=== PATIENT | female | born 1970 | race Caucasian/White ===

== ENCOUNTER 2018-07-03 20:48 | Emergency (ER) | payer MEDICAID, MEDICARE ==
[~2018-07-03] VITALS: Ht 157.5 cm; Wt 84.0 kg
[~2018-07-03 20:48] MED LIST: NAPR-1154 PO
[2018-07-03] MEDS ORDERED: benzonatate 100mg capsule PO ONE (21:35)
[2018-07-03] MEDS ORDERED: normal saline 1000ml 1,000 ML IV ONE (21:35)
[2018-07-03 22:15] LABS: BASOPHILS # (AUTO) 0.1 X10'3 (0-0.2); BASOPHILS % (AUTO) 1.2 % (0-1); EOSINOPHILS # (AUTO) 0.1 X10'3 (0-0.9); EOSINOPHILS % (AUTO) 1.3 % (0-6); HEMATOCRIT 34.1 % (35.0-45.0); HEMOGLOBIN 10.6 g/dl (12.0-16.0); LYMPHOCYTES % (AUTO) 34.5 % (21-51); MEAN CORPUSCULAR HEMOGLOBIN 22.8 PG (27.0-31.0); MEAN CORPUSCULAR HGB CONC 31.2 g/dL (33.0-36.5); MEAN CORPUSCULAR VOLUME 73.1 FL (78-98); MEAN PLATELET VOLUME 7.2 FL (7.4-10.4); MONOCYTES # (AUTO) 0.2 X10'3 (0-0.9); MONOCYTES % (AUTO) 4.1 % (2-12); NEUTROPHILS # (AUTO) 3.4 X10'3 (1.8-7.7); NEUTROPHILS % (AUTO) 58.9 % (42-75); PLATELET COUNT 153 X10'3 (140-440); RED BLOOD COUNT 4.66 X10'6 (4.20-5.60); RED CELL DISTRIBUTION WIDTH 19.2 % (11.5-14.5); WHITE BLOOD COUNT 5.8 X10'3 (4.5-11.0)
[2018-07-03 22:42] LABS: ANISOCYTOSIS 2+; ELLIPTOCYTES FEW; MICROCYTOSIS 1+; PLATELET ESTIMATE NORMAL; POLYCHROMASIA FEW
--- NOTE | 2018-07-03 23:13 | NUR ---
charity increased to level 3 due to extra procedures physician has ordered
[2018-07-03 23:15] LABS: CHLORIDE 101 MMOL/L (99-107); GLUCOSE 87 MG/DL (70-104); POTASSIUM 3.9 MMOL/L (3.5-5.1); SODIUM 136 MMOL/L (135-145)
[2018-07-03 23:16] LABS: ALANINE AMINOTRANSFERASE 35 U/L (12-78); ALBUMIN 3.6 G/DL (3.4-5.0); ALBUMIN/GLOBULIN RATIO 0.7 (1.1-1.5); ALKALINE PHOSPHATASE 146 IU/L (46-116); ANION GAP 11 (8-16); ASPARTATE AMINO TRANSFERASE 58 U/L (10-37); BILIRUBIN,TOTAL 0.5 MG/DL (0.1-1.0); BLOOD UREA NITROGEN 7 MG/DL (7-18); BUN/CREATININE RATIO 7.4 (6.6-38.0); CALCIUM 8.4 MG/DL (8.5-10.1); CREATININE 0.94 MG/DL (0.40-0.90); TOTAL CARBON DIOXIDE 23.8 MMOL/L (24-32); TOTAL PROTEIN 8.7 G/DL (6.4-8.2); eGFR 63 ML/MIN
[2018-07-03 23:17] LABS: ETHANOL 0.279 GM/DL (0.0-0.010)
[2018-07-03] MEDS ORDERED: AZIT-63 PO (23:33)
[2018-07-03] MEDS ORDERED: BENZ-16 PO (23:33)
[2018-07-04 00:04] VITALS: BP 145/84
== END 2018-07-04 00:06 | disposition home or self-care (01) ==
LOC: ER 20:48
DX: J06.9 Acute upper respiratory infection, unspecified (principal); R07.89 Other chest pain; G89.29 Other chronic pain; M25.512 Pain in left shoulder; F15.90 Other stimulant use, unspecified, uncomplicated; Z98.890 Other specified postprocedural states; Z56.0 Unemployment, unspecified; Z59.0 Homelessness; Z88.8 Allergy status to other drugs, medicaments and biological substances; Z79.899 Other long term (current) drug therapy; W18.39XA Other fall on same level, initial encounter; Y93.89 Activity, other specified; Y92.89 Other specified places as the place of occurrence of the external cause; Y99.8 Other external cause status
CPT/HCPCS: 36415; 71045; 80053; 80320; 83880; 84484; 85025; 85610; 93005; 99284; J7030

== ENCOUNTER 2018-07-12 19:20 | Emergency (ER) | payer MEDICARE ==
[~2018-07-12] VITALS: Ht 157.5 cm; Wt 77.8 kg
[~2018-07-12 19:20] MED LIST changes: +AZIT-63 PO; +BENZ-16 PO
[2018-07-12 19:24] VITALS: BP 176/108
== END 2018-07-12 20:15 | disposition home or self-care (01) ==
LOC: ER 19:21
DX: S96.811A Strain of other specified muscles and tendons at ankle and foot level, right foot, initial encounter (principal); G89.29 Other chronic pain; F15.90 Other stimulant use, unspecified, uncomplicated; Z56.0 Unemployment, unspecified; Z59.0 Homelessness; Z98.890 Other specified postprocedural states; Z88.8 Allergy status to other drugs, medicaments and biological substances; Z79.899 Other long term (current) drug therapy; X58.XXXA Exposure to other specified factors, initial encounter; Y93.89 Activity, other specified; Y92.89 Other specified places as the place of occurrence of the external cause; Y99.8 Other external cause status
CPT/HCPCS: 73610; 99284

== ENCOUNTER 2020-05-02 11:42 | Emergency (ER) | payer MEDICARE, MEDICAID ==
[~2020-05-02] VITALS: Ht 157.5 cm; Wt 89.5 kg
[~2020-05-02 11:42] MED LIST changes: -AZIT-63 PO; -BENZ-16 PO
[2020-05-02 12:51] LABS: CLARITY,URINE SLIGHTLY CLOUDY (Clear); COLOR,URINE STRAW (Yellow); GLUCOSE, URINE NEGATIVE (Neg); KETONES,URINE NEGATIVE (Neg); LEUKOCYTE ESTERASE ,URINE TRACE (Neg); NITRITES, URINE NEGATIVE (Neg); OCCULT BLOOD,URINE NEGATIVE (Neg); PROTEIN,URINE NEGATIVE (Neg); UROBILINOGEN,URINE 0.2 E.U/dL (0.2-1.0)
[2020-05-02 12:54] LABS: BASOPHILS # (AUTO) 0.1 X10'3 (0-0.2); BASOPHILS % (AUTO) 1.1 % (0-1); EOSINOPHILS # (AUTO) 0.1 X10'3 (0-0.9); EOSINOPHILS % (AUTO) 1.9 % (0-6); HEMATOCRIT 33.8 % (35.0-45.0); HEMOGLOBIN 10.7 g/dl (12.0-16.0); LYMPHOCYTES # (AUTO) 1.4 X10'3 (1.1-4.8); LYMPHOCYTES % (AUTO) 22.2 % (21-51); MEAN CORPUSCULAR HEMOGLOBIN 25.9 PG (27.0-31.0); MEAN CORPUSCULAR HGB CONC 31.6 g/dL (33.0-36.5); MEAN PLATELET VOLUME 7.7 FL (7.4-10.4); MONOCYTES # (AUTO) 0.4 X10'3 (0-0.9); NEUTROPHILS # (AUTO) 4.2 X10'3 (1.8-7.7); NEUTROPHILS % (AUTO) 67.8 % (42-75); PLATELET COUNT 326 X10'3 (140-440); RED BLOOD COUNT 4.12 X10'6 (4.20-5.60); RED CELL DISTRIBUTION WIDTH 17.5 % (11.5-14.5); WHITE BLOOD COUNT 6.2 X10'3 (4.5-11.0)
[2020-05-02 12:59] LABS: UA COLLECTION TYPE CLN CATCH MIDSTREAM
[2020-05-02 13:01] LABS: SQUAMOUS EPITHELIAL CELL,UR FEW /LPF (FEW)
[2020-05-02 13:03] LABS: BACTERIA,URINE FEW /HPF (Neg)
[2020-05-02 13:05] LABS: RBC,URINE NONE SEEN /HPF (0-2); WBC,URINE 0-4 /HPF (0-4)
[2020-05-02 13:18] LABS: ALANINE AMINOTRANSFERASE 29 U/L (12-78); ALBUMIN 3.2 G/DL (3.4-5.0); ALBUMIN/GLOBULIN RATIO 0.8 (1.1-1.5); ALKALINE PHOSPHATASE 141 IU/L (46-116); AMYLASE 69 U/L (25-115); ANION GAP 7 (8-16); ASPARTATE AMINO TRANSFERASE 23 U/L (10-37); BILIRUBIN,TOTAL 0.2 MG/DL (0.1-1.0); BLOOD UREA NITROGEN 16 MG/DL (7-18); BUN/CREATININE RATIO 21.1 (6.6-38.0); CALCIUM 8.6 MG/DL (8.5-10.1); CHLORIDE 107 MMOL/L (99-107); CREATININE 0.76 MG/DL (0.40-0.90); GLUCOSE 87 MG/DL (70-104); LIPASE 125 U/L (73-393); POTASSIUM 4.7 MMOL/L (3.5-5.1); SODIUM 139 MMOL/L (135-145); TOTAL CARBON DIOXIDE 25.4 MMOL/L (24-32); TOTAL PROTEIN 7.4 G/DL (6.4-8.2); eGFR 80 ML/MIN
[2020-05-02] MEDS ORDERED: ondansetron 4mg rapidly disintigrating tab PO ONE (13:25)
[2020-05-02] MEDS ORDERED: sucralfate 1 gm tablet PO ONE (13:25)
[2020-05-02] MEDS ORDERED: LIDOcaine Viscous 15ml cup MM ONE (13:25)
[2020-05-02] MEDS ORDERED: mag hydrox/Alum hydrox/simeth 30ml oral suspension PO ONE (13:25)
[2020-05-02] MEDS ORDERED: lactulose 20gm/30ml cup PO ONE (14:25)
[2020-05-02 14:56] VITALS: BP 156/102
== END 2020-05-02 15:02 | disposition home or self-care (01) ==
LOC: ER 11:42
DX: K59.00 Constipation, unspecified (principal); G89.29 Other chronic pain; F15.90 Other stimulant use, unspecified, uncomplicated; Z56.0 Unemployment, unspecified; Z59.0 Homelessness; Z98.890 Other specified postprocedural states; Z90.49 Acquired absence of other specified parts of digestive tract; Z88.8 Allergy status to other drugs, medicaments and biological substances; Z79.899 Other long term (current) drug therapy
CPT/HCPCS: 36415; 74018; 80053; 81001; 82150; 83690; 85025; 87077; 87088; 87186; 99284

== ENCOUNTER 2021-02-14 22:57 | Emergency (ER) | payer MEDICARE, MEDICAID ==
[~2021-02-14] VITALS: Ht 157.5 cm; Wt 79.5 kg
[2021-02-15] MEDS ORDERED: ondansetron/PF 4mg/2ml inj IV ONE (00:50)
[2021-02-15] MEDS ORDERED: morphine 4 MG/ML inj SYRINge IV ONE (00:50)
[2021-02-15] MEDS ORDERED: iohexol 300mg/ml 100ml inj. ONE (00:55)
[2021-02-15 01:38] LABS: BASOPHILS # (AUTO) 0.1 X10'3 (0-0.2); BASOPHILS % (AUTO) 1.1 % (0-1); EOSINOPHILS % (AUTO) 0.2 % (0-6); HEMATOCRIT 41.4 % (35.0-45.0); HEMOGLOBIN 13.1 g/dl (12.0-16.0); LYMPHOCYTES # (AUTO) 0.3 X10'3 (1.1-4.8); MEAN CORPUSCULAR HEMOGLOBIN 27.7 PG (27.0-31.0); MEAN CORPUSCULAR HGB CONC 31.7 g/dL (33.0-36.5); MEAN CORPUSCULAR VOLUME 87.4 FL (78-98); MONOCYTES # (AUTO) 0.7 X10'3 (0-0.9); MONOCYTES % (AUTO) 5.2 % (2-12); NEUTROPHILS # (AUTO) 11.5 X10'3 (1.8-7.7); NEUTROPHILS % (AUTO) 91.5 % (42-75); PLATELET COUNT 352 X10'3 (140-440); RED BLOOD COUNT 4.74 X10'6 (4.20-5.60); RED CELL DISTRIBUTION WIDTH 21.8 % (11.5-14.5); WHITE BLOOD COUNT 12.6 X10'3 (4.5-11.0)
[2021-02-15 01:46] LABS: ALANINE AMINOTRANSFERASE 37 U/L (12-78); ALBUMIN 3.9 G/DL (3.4-5.0); ALBUMIN/GLOBULIN RATIO 0.8 (1.1-1.5); ALKALINE PHOSPHATASE 120 IU/L (46-116); ANION GAP 8 (8-16); ASPARTATE AMINO TRANSFERASE 29 U/L (10-37); BILIRUBIN,DIRECT 0.2 MG/DL (0-0.3); BILIRUBIN,TOTAL 0.6 MG/DL (0.1-1.0); BLOOD UREA NITROGEN 19 MG/DL (7-18); BUN/CREATININE RATIO 17.4 (6.6-38.0); CALCIUM 9.4 MG/DL (8.5-10.1); CHLORIDE 104 MMOL/L (99-107); CREATININE 1.09 MG/DL (0.40-0.90); GLUCOSE 152 MG/DL (70-104); LIPASE 99 U/L (73-393); POTASSIUM 3.7 MMOL/L (3.5-5.1); SODIUM 138 MMOL/L (135-145); TOTAL CARBON DIOXIDE 26.1 MMOL/L (24-32); TOTAL PROTEIN 8.9 G/DL (6.4-8.2); eGFR 53 ML/MIN
[2021-02-15 02:51] LABS: ANISOCYTOSIS 3+; LARGE PLATELETS FEW; PLATELET ESTIMATE NORMAL; POLYCHROMASIA FEW
--- NOTE | 2021-02-15 03:20 | NUR ---
GAVE PT WATER TO TEST IF PT TOLERATES WELL, PER .
--- NOTE | 2021-02-15 03:44 | NUR ---
PT TOLERATED WATER WITH NO NAUSEA OR VOMITING. DR ÁLVAREZ AWARE.
[2021-02-15 04:25] VITALS: BP 115/81
== END 2021-02-15 04:27 | disposition home or self-care (01) ==
LOC: ER 22:57
DX: R10.13 Epigastric pain (principal); K59.00 Constipation, unspecified; R11.2 Nausea with vomiting, unspecified; G89.29 Other chronic pain; F15.90 Other stimulant use, unspecified, uncomplicated; Z90.49 Acquired absence of other specified parts of digestive tract; Z98.890 Other specified postprocedural states; Z56.0 Unemployment, unspecified; Z59.00 Homelessness unspecified; Z88.8 Allergy status to other drugs, medicaments and biological substances; Z79.899 Other long term (current) drug therapy
CPT/HCPCS: 36415; 74177; 80048; 80076; 83690; 85008; 85025; 96374; 96375; 99285; J2270; J2405; Q9967

== ENCOUNTER 2021-02-20 04:41 | Inpatient (IN) | payer MEDICARE, MEDICAID ==
[~2021-02-20] VITALS: Ht 157.5 cm; Wt 81.0 kg
[2021-02-20] MEDS ORDERED: ondansetron/PF 4mg/2ml inj IV ONE ×2 (04:45→08:25)
[2021-02-20] MEDS ORDERED: famotidine/PF 10 mg/ml inj IV ONE (04:45)
[2021-02-20] MEDS ORDERED: normal saline 1000ml 1,000 ML IV ONE (04:45)
[2021-02-20] MEDS ORDERED: pantoprazole 40MG/D5 100ML BAG 100 ML IV ONE (04:45)
[2021-02-20] MEDS ORDERED: ketorolac trometh. 30mg/ml inj. IV ONE (04:45)
[2021-02-20] MEDS ORDERED: dicyclomine 10mg/ml 2ml ampule IM ONE (04:45)
[2021-02-20] MEDS ORDERED: metoclopramide 5 mg/ml inj IV ONE (04:45)
[2021-02-20] MEDS ORDERED: morphine 4 MG/ML inj SYRINge IV ONE ×2 (04:45→15:35)
[2021-02-20] MEDS ORDERED: pantoprazole 40MG/NS 100ML BAG 100 ML IV ONE (05:00)
[2021-02-20 05:55] LABS: BASOPHILS # (AUTO) 0.1 X10'3 (0-0.2); BASOPHILS % (AUTO) 0.9 % (0-1); EOSINOPHILS % (AUTO) 0.1 % (0-6); HEMATOCRIT 35.9 % (35.0-45.0); HEMOGLOBIN 11.5 g/dl (12.0-16.0); LYMPHOCYTES # (AUTO) 0.9 X10'3 (1.1-4.8); LYMPHOCYTES % (AUTO) 10.6 % (21-51); MEAN CORPUSCULAR HEMOGLOBIN 27.6 PG (27.0-31.0); MEAN CORPUSCULAR HGB CONC 32.1 g/dL (33.0-36.5); MEAN CORPUSCULAR VOLUME 85.9 FL (78-98); MEAN PLATELET VOLUME 7.7 FL (7.4-10.4); MONOCYTES # (AUTO) 0.2 X10'3 (0-0.9); MONOCYTES % (AUTO) 2.3 % (2-12); NEUTROPHILS # (AUTO) 7.6 X10'3 (1.8-7.7); NEUTROPHILS % (AUTO) 86.1 % (42-75); PLATELET COUNT 352 X10'3 (140-440); RED BLOOD COUNT 4.18 X10'6 (4.20-5.60); RED CELL DISTRIBUTION WIDTH 20.6 % (11.5-14.5); WHITE BLOOD COUNT 8.9 X10'3 (4.5-11.0)
[2021-02-20 06:11] LABS: ALANINE AMINOTRANSFERASE 22 U/L (12-78); ALBUMIN 2.9 G/DL (3.4-5.0); ALBUMIN/GLOBULIN RATIO 0.7 (1.1-1.5); ALKALINE PHOSPHATASE 115 IU/L (46-116); ANION GAP 10 (8-16); ASPARTATE AMINO TRANSFERASE 22 U/L (10-37); BILIRUBIN,TOTAL 0.3 MG/DL (0.1-1.0); BLOOD UREA NITROGEN 15 MG/DL (7-18); BUN/CREATININE RATIO 14.9 (6.6-38.0); CALCIUM 8.5 MG/DL (8.5-10.1); CHLORIDE 105 MMOL/L (99-107); CREATININE 1.01 MG/DL (0.40-0.90); GLUCOSE 112 MG/DL (70-104); POTASSIUM 3.6 MMOL/L (3.5-5.1); SODIUM 139 MMOL/L (135-145); TOTAL CARBON DIOXIDE 24.2 MMOL/L (24-32); eGFR 58 ML/MIN
[2021-02-20 06:13] LABS: ETHANOL < 0.010 GM/DL (0.0-0.010); LIPASE 74 U/L (73-393)
[2021-02-20 07:31] LABS: CLARITY,URINE SLIGHTLY CLOUDY (Clear); COLOR,URINE YELLOW (Yellow); GLUCOSE, URINE NEGATIVE (Neg); KETONES,URINE TRACE mg/dl (Neg); LEUKOCYTE ESTERASE ,URINE NEGATIVE (Neg); NITRITES, URINE NEGATIVE (Neg); OCCULT BLOOD,URINE NEGATIVE (Neg); PROTEIN,URINE NEGATIVE (Neg); UROBILINOGEN,URINE 0.2 E.U/dL (0.2-1.0)
[2021-02-20 07:37] LABS: UA COLLECTION TYPE VOIDED
[2021-02-20 07:45] LABS: BACTERIA,URINE 2+ /HPF (Neg); MUCUS STRANDS MODERATE /LPF (Neg); SQUAMOUS EPITHELIAL CELL,UR MODERATE /LPF (FEW)
[2021-02-20 07:46] LABS: CAL OXALATE CRYSTALS 3+ /HPF (NEGATIVE); RBC,URINE 0-2 /HPF (0-2)
[2021-02-20 07:47] LABS: WBC,URINE 0-4 /HPF (0-4)
[2021-02-20 07:50] LABS: URINE AMPHETAMINE SCREEN POSITIVE (Neg); URINE BARBITUATE SCREEN NEGATIVE (Neg); URINE BENZODIAZEPINES SCREEN NEGATIVE (Neg); URINE CANNABINOID SCREEN NEGATIVE (Neg); URINE COCAINE SCREEN NEGATIVE (Neg); URINE METHADONE SCREEN NEGATIVE (Neg); URINE OPIATE SCREEN POSITIVE (Neg); URINE PHENCYCLIDINE SCREEN NEGATIVE (Neg)
[2021-02-20] MEDS ORDERED: LORazepam 2 mg/ml vial IV ONE (08:25)
[2021-02-20] MEDS ORDERED: diphenhydrAMINE 50 mg/ml inj IV ONE (08:25)
[2021-02-20] MEDS ORDERED: haloperidol lactate 5mg/ml inj IM ONE (08:25)
[2021-02-20] MEDS ORDERED: acetaminophen 325mg tablet PO PRN (09:25)
[2021-02-20] MEDS ORDERED: potassium Cl 20 mEq SR tablet PO PRN ×2 (09:25)
[2021-02-20] MEDS ORDERED: mag hydrox/Alum hydrox/simeth 30ml oral suspension PO PRN (09:25)
[2021-02-20] MEDS ORDERED: magnesium 2GM in 50ml NS 50 ML IV PRN (09:25)
[2021-02-20] MEDS: normal saline 1000ml 1,000 ML IV SCH ×2 (09:25→13:00)
[2021-02-20] MEDS ORDERED: potassium CL 10mEq/100ml bag 100 ML IV PRN (09:25)
[2021-02-20] MEDS ORDERED: ondansetron/PF 4mg/2ml inj IV PRN (09:25)
[2021-02-20] MEDS ORDERED: magnesium 4gm in 100ml NS 100 ML IV PRN (09:25)
[2021-02-20] MEDS ORDERED: LORazepam 2 mg/ml vial IV PRN (09:50)
[2021-02-20] MEDS ORDERED: haloperidol lactate 5mg/ml inj IM PRN (09:50)
[2021-02-20] MEDS ORDERED: haloperidol 5mg tablet PO PRN (09:50)
--- NOTE | 2021-02-20 11:41 | NUR ---
Pt was incont. of stool while sleeping.
[2021-02-20] MEDS ORDERED: NO HOME MEDS (12:19)
--- NOTE | 2021-02-20 14:38 | NUR ---
Pt is up to BSC, +stool, loose, light brown.
[2021-02-20] MEDS: K and/or MAG REPLACEMENT MC SCH (15:33)
[2021-02-20] MEDS ORDERED: morphine 2 MG/ML inj. syringe IV PRN (15:35)
--- NOTE | 2021-02-20 16:01 | NUR ---
Report given to ADRIENNE Golden on the Surgical floor.
--- NOTE | 2021-02-20 18:31 | NUR ---
Problems reprioritized. Patient report given, questions answered & plan of care reviewed with Nereida hayes.
[2021-02-20 20:00] VITALS: BP 133/86
[2021-02-20] MEDS: diatr meglu/diatrizoate 30ml oral sol.-(3 dose) bottle PO SCH (20:14)
[2021-02-20] MEDS: enoxaparin 40mg/0.4ml syringe SQ SCH (20:15)
[2021-02-20] MEDS: temazepam 15mg capsule PO PRN (20:24)
[2021-02-21] VITALS: BP 161/104
[2021-02-21] MEDS: morphine 4 MG/ML inj SYRINge IV PRN ×3 (00:22→11:22)
[2021-02-21 04:03] VITALS: BP 138/88
[2021-02-21] MEDS: normal saline 1000ml 1,000 ML IV SCH ×2 (05:25→07:26)
[2021-02-21 06:37] LABS: BASOPHILS % (AUTO) 0.7 % (0-1); EOSINOPHILS # (AUTO) 0.1 X10'3 (0-0.9); EOSINOPHILS % (AUTO) 1.2 % (0-6); HEMOGLOBIN 9.6 g/dl (12.0-16.0); LYMPHOCYTES # (AUTO) 1.6 X10'3 (1.1-4.8); LYMPHOCYTES % (AUTO) 28.5 % (21-51); MEAN CORPUSCULAR HEMOGLOBIN 27.6 PG (27.0-31.0); MEAN CORPUSCULAR HGB CONC 32.1 g/dL (33.0-36.5); MEAN CORPUSCULAR VOLUME 85.9 FL (78-98); MEAN PLATELET VOLUME 8.3 FL (7.4-10.4); MONOCYTES # (AUTO) 0.4 X10'3 (0-0.9); MONOCYTES % (AUTO) 6.5 % (2-12); NEUTROPHILS # (AUTO) 3.5 X10'3 (1.8-7.7); NEUTROPHILS % (AUTO) 63.1 % (42-75); PLATELET COUNT 286 X10'3 (140-440); RED BLOOD COUNT 3.49 X10'6 (4.20-5.60); RED CELL DISTRIBUTION WIDTH 20.8 % (11.5-14.5); WHITE BLOOD COUNT 5.6 X10'3 (4.5-11.0)
[2021-02-21 06:45] LABS: ALANINE AMINOTRANSFERASE 19 U/L (12-78); ALBUMIN 2.3 G/DL (3.4-5.0); ALBUMIN/GLOBULIN RATIO 0.7 (1.1-1.5); ALKALINE PHOSPHATASE 68 IU/L (46-116); ANION GAP 7 (8-16); ASPARTATE AMINO TRANSFERASE 14 U/L (10-37); BILIRUBIN,TOTAL 0.6 MG/DL (0.1-1.0); BLOOD UREA NITROGEN 12 MG/DL (7-18); BUN/CREATININE RATIO 14.6 (6.6-38.0); CHLORIDE 111 MMOL/L (99-107); CREATININE 0.82 MG/DL (0.40-0.90); GLUCOSE 76 MG/DL (70-104); MAGNESIUM 1.6 MG/DL (1.5-2.4); POTASSIUM 3.7 MMOL/L (3.5-5.1); SODIUM 143 MMOL/L (135-145); TOTAL CARBON DIOXIDE 25.4 MMOL/L (24-32); TOTAL PROTEIN 5.8 G/DL (6.4-8.2); eGFR 73 ML/MIN
--- NOTE | 2021-02-21 06:46 | NUR ---
Patient in room [facility] 359. I have received report from Nereida DELEON and had the opportunity to ask questions and assume patient care.
[2021-02-21 07:00] VITALS: BP 144/93
[2021-02-21 07:04] LABS: AMYLASE 48 U/L (25-115); LIPASE < 50 U/L (73-393); PHOSPHORUS 3.8 MG/DL (2.3-4.5)
[2021-02-21] MEDS: diatr meglu/diatrizoate 30ml oral sol.-(3 dose) bottle PO SCH ×2 (07:17→10:45)
[2021-02-21] MEDS: K and/or MAG REPLACEMENT MC SCH ×2 (08:00→20:00)
[2021-02-21] MEDS: multivitamins, therapeutics tablet PO SCH (08:00)
[2021-02-21] MEDS ORDERED: iohexol 300mg/ml 100ml inj. ONE (10:56)
[2021-02-21 11:00] VITALS: BP 162/92
--- NOTE | 2021-02-21 13:44 | NUR ---
Called OR, spoke to the nursing staff who confirmed to me that Dr. Good still in the OR doing surgery. I left a message to the staff to let Dr. Good know that Dr. Earl was requesting him to review the result of the CT scan of abdomen with contrast.
--- NOTE | 2021-02-21 16:24 | NUR ---
Discontinued NGT as ordered. Tolerated well
--- NOTE | 2021-02-21 17:05 | NUR ---
Blood sugar checked = 69mg/dl. Patient was requesting juice before I checked her blood sugar. I went ahead gave her 2 juices. Will recheck again in 15 minutes
--- NOTE | 2021-02-21 18:40 | NUR ---
Problems reprioritized. Patient report given, questions answered & plan of care reviewed with Nereida DELEON.
[2021-02-21 20:00] VITALS: BP 156/90
[2021-02-21] MEDS: enoxaparin 40mg/0.4ml syringe SQ SCH (20:52)
[2021-02-22] VITALS: BP 146/88
[2021-02-22] MEDS: temazepam 15mg capsule PO PRN (00:44)
[2021-02-22] MEDS: normal saline 1000ml 1,000 ML IV SCH (01:25)
[2021-02-22 05:57] LABS: BASOPHILS % (AUTO) 0.6 % (0-1); EOSINOPHILS # (AUTO) 0.1 X10'3 (0-0.9); EOSINOPHILS % (AUTO) 1.3 % (0-6); HEMATOCRIT 30.6 % (35.0-45.0); HEMOGLOBIN 9.9 g/dl (12.0-16.0); LYMPHOCYTES # (AUTO) 1.2 X10'3 (1.1-4.8); LYMPHOCYTES % (AUTO) 23.3 % (21-51); MEAN CORPUSCULAR HEMOGLOBIN 27.6 PG (27.0-31.0); MEAN CORPUSCULAR HGB CONC 32.2 g/dL (33.0-36.5); MEAN CORPUSCULAR VOLUME 85.6 FL (78-98); MEAN PLATELET VOLUME 8.1 FL (7.4-10.4); MONOCYTES # (AUTO) 0.4 X10'3 (0-0.9); MONOCYTES % (AUTO) 7.6 % (2-12); NEUTROPHILS # (AUTO) 3.5 X10'3 (1.8-7.7); NEUTROPHILS % (AUTO) 67.2 % (42-75); PLATELET COUNT 284 X10'3 (140-440); RED BLOOD COUNT 3.58 X10'6 (4.20-5.60); RED CELL DISTRIBUTION WIDTH 20.5 % (11.5-14.5); WHITE BLOOD COUNT 5.2 X10'3 (4.5-11.0)
--- NOTE | 2021-02-22 06:18 | NUR ---
Patient in room [facility] 359. I have received report from Nereida DELEON and had the opportunity to ask questions and assume patient care.
[2021-02-22 06:31] LABS: ALANINE AMINOTRANSFERASE 18 U/L (12-78); ALBUMIN 2.4 G/DL (3.4-5.0); ALBUMIN/GLOBULIN RATIO 0.7 (1.1-1.5); ALKALINE PHOSPHATASE 67 IU/L (46-116); AMYLASE 47 U/L (25-115); ANION GAP 6 (8-16); ASPARTATE AMINO TRANSFERASE 20 U/L (10-37); BILIRUBIN,TOTAL 0.4 MG/DL (0.1-1.0); BLOOD UREA NITROGEN 5 MG/DL (7-18); BUN/CREATININE RATIO 7.2 (6.6-38.0); CALCIUM 8.2 MG/DL (8.5-10.1); CHLORIDE 108 MMOL/L (99-107); CREATININE 0.69 MG/DL (0.40-0.90); GLUCOSE 77 MG/DL (70-104); LIPASE < 50 U/L (73-393); MAGNESIUM 1.3 MG/DL (1.5-2.4); PHOSPHORUS 4.6 MG/DL (2.3-4.5); POTASSIUM 3.8 MMOL/L (3.5-5.1); SODIUM 139 MMOL/L (135-145); TOTAL CARBON DIOXIDE 24.6 MMOL/L (24-32); TOTAL PROTEIN 5.9 G/DL (6.4-8.2); eGFR 90 ML/MIN
[2021-02-22] MEDS: multivitamins, therapeutics tablet PO SCH (07:00)
[2021-02-22 08:00] VITALS: BP 143/100
[2021-02-22] MEDS: K and/or MAG REPLACEMENT MC SCH (08:00)
[2021-02-22 08:06] LABS: ANISOCYTOSIS 3+; HYPOCHROMASIA 1+; PLATELET ESTIMATE NORMAL
[2021-02-22] MEDS ORDERED: LORazepam 1 MG tablet PO PRN (09:50)
[2021-02-22] MEDS ORDERED: LORazepam 2 mg/ml vial IV PRN (09:50)
--- NOTE | 2021-02-22 12:24 | NUR ---
Discharge instructions given to patient, patient verbalized understanding of all instructions given to her. Peripheral IV catheter removed, tip intact. Instructed patient to ensure she has al her belongings with her before leaving the hospital.
[2021-02-25] MEDS ORDERED: folic acid 1mg tablet PO SCH (08:00)
[2021-02-25] MEDS ORDERED: thiamine 100mg tablet PO SCH (08:00)
== END 2021-02-22 14:38 | disposition home or self-care (01) | DRG 390 ==
LOC: ER 04:42 → ED HOLD 09:27 → SUR 3N 16:11
PROVIDERS: ADMIT Family Medicine; ATTEND Family Medicine
PROC: 0D9670Z Drainage of Stomach with Drainage Device, Via Natural or Artificial Opening (ICD-10-PCS; principal; 2021-02-20)
PROC: BW211ZZ Computerized Tomography (CT Scan) of Abdomen and Pelvis using Low Osmolar Contrast (ICD-10-PCS; 2021-02-21)
DX: K56.609 Unspecified intestinal obstruction, unspecified as to partial versus complete obstruction (principal); D64.9 Anemia, unspecified; E83.42 Hypomagnesemia; F15.10 Other stimulant abuse, uncomplicated; F10.20 Alcohol dependence, uncomplicated; G89.29 Other chronic pain; K58.9 Irritable bowel syndrome, unspecified; Z80.41 Family history of malignant neoplasm of ovary; Z82.49 Family history of ischemic heart disease and other diseases of the circulatory system; Z83.3 Family history of diabetes mellitus; Z98.84 Bariatric surgery status; Z56.0 Unemployment, unspecified; Z59.00 Homelessness unspecified; Z88.8 Allergy status to other drugs, medicaments and biological substances; Z90.49 Acquired absence of other specified parts of digestive tract; Z79.899 Other long term (current) drug therapy; Z71.51 Drug abuse counseling and surveillance of drug abuser
CPT/HCPCS: 36415; 74176; 74177; 80053; 80305; 80320; 81001; 82150; 82948; 83690; 83735; 84100; 84484; 85008; 85025; 85610; 87081; 96365; 96372; 96375; 96376; 97161; 97530; 99285; C9113; G0378; J0500; J1200; J1630; J1650; J1885; J2060; J2270; J2405; J2765; J3490; J7030; Q9963; Q9967

== ENCOUNTER 2021-03-15 19:26 | Emergency (ER) | payer MEDICARE, MEDICAID ==
[~2021-03-15] VITALS: Ht 157.5 cm; Wt 77.5 kg
[~2021-03-15 19:26] MED LIST changes: -NAPR-1154 PO; +NO HOME MEDS
[2021-03-15 20:44] LABS: URINE HCG NEGATIVE (NEG)
[2021-03-15 20:45] LABS: CLARITY,URINE CLEAR (Clear); COLOR,URINE YELLOW (Yellow); GLUCOSE, URINE NEGATIVE (Neg); KETONES,URINE NEGATIVE (Neg); LEUKOCYTE ESTERASE ,URINE NEGATIVE (Neg); NITRITES, URINE NEGATIVE (Neg); OCCULT BLOOD,URINE NEGATIVE (Neg); PH,URINE 5.5 (4.8-8.0); PROTEIN,URINE NEGATIVE (Neg); UROBILINOGEN,URINE 0.2 E.U/dL (0.2-1.0)
[2021-03-15 20:48] LABS: BASOPHILS # (AUTO) 0.1 X10'3 (0-0.2); BASOPHILS % (AUTO) 0.8 % (0-1); EOSINOPHILS # (AUTO) 0.1 X10'3 (0-0.9); EOSINOPHILS % (AUTO) 1.1 % (0-6); HEMATOCRIT 35.6 % (35.0-45.0); HEMOGLOBIN 11.3 g/dl (12.0-16.0); LYMPHOCYTES # (AUTO) 1.1 X10'3 (1.1-4.8); LYMPHOCYTES % (AUTO) 15.6 % (21-51); MEAN CORPUSCULAR HEMOGLOBIN 27.3 PG (27.0-31.0); MEAN CORPUSCULAR HGB CONC 31.6 g/dL (33.0-36.5); MEAN CORPUSCULAR VOLUME 86.1 FL (78-98); MEAN PLATELET VOLUME 7.4 FL (7.4-10.4); MONOCYTES # (AUTO) 0.5 X10'3 (0-0.9); NEUTROPHILS # (AUTO) 5.5 X10'3 (1.8-7.7); NEUTROPHILS % (AUTO) 75.5 % (42-75); PLATELET COUNT 341 X10'3 (140-440); RED BLOOD COUNT 4.14 X10'6 (4.20-5.60); RED CELL DISTRIBUTION WIDTH 20.2 % (11.5-14.5); WHITE BLOOD COUNT 7.4 X10'3 (4.5-11.0)
[2021-03-15 20:52] LABS: UA COLLECTION TYPE CLN CATCH MIDSTREAM
[2021-03-15 21:03] LABS: ALANINE AMINOTRANSFERASE 16 U/L (12-78); ALBUMIN 3.3 G/DL (3.4-5.0); ALBUMIN/GLOBULIN RATIO 0.7 (1.1-1.5); ALKALINE PHOSPHATASE 139 IU/L (46-116); ANION GAP 8 (8-16); ASPARTATE AMINO TRANSFERASE 20 U/L (10-37); BILIRUBIN,TOTAL 0.2 MG/DL (0.1-1.0); BLOOD UREA NITROGEN 21 MG/DL (7-18); BUN/CREATININE RATIO 25.6 (6.6-38.0); CALCIUM 8.4 MG/DL (8.5-10.1); CHLORIDE 106 MMOL/L (99-107); CREATININE 0.82 MG/DL (0.40-0.90); GLUCOSE 82 MG/DL (70-104); LIPASE 159 U/L (73-393); POTASSIUM 4.4 MMOL/L (3.5-5.1); SODIUM 136 MMOL/L (135-145); TOTAL PROTEIN 7.8 G/DL (6.4-8.2); eGFR 73 ML/MIN
[2021-03-15 21:27] LABS: ANISOCYTOSIS 3+; PLATELET ESTIMATE NORMAL
[2021-03-16] MEDS ORDERED: normal saline 1000ML IV soln IVB ONE (00:20)
[2021-03-16] MEDS ORDERED: pantoprazole 40MG/D5 100ML BAG 100 ML IV ONE (00:20)
[2021-03-16] MEDS ORDERED: morphine 2 MG/ML inj. syringe IV PRN (00:20)
[2021-03-16] MEDS ORDERED: pantoprazole 40MG/NS 100ML BAG 100 ML IV ONE (00:22)
[2021-03-16] MEDS ORDERED: polyethylene glycol 3350 17gm powd pack PO ONE (04:05)
[2021-03-16 04:10] VITALS: BP 121/84
[2021-03-16] MEDS ORDERED: polyethylene glycol 3350 17gm powd pack PO SCH (21:00)
== END 2021-03-16 04:13 | disposition home or self-care (01) ==
LOC: ER 19:28
DX: R10.84 Generalized abdominal pain (principal); K59.00 Constipation, unspecified; G89.29 Other chronic pain; F15.90 Other stimulant use, unspecified, uncomplicated; Z87.440 Personal history of urinary (tract) infections; Z90.49 Acquired absence of other specified parts of digestive tract; Z98.890 Other specified postprocedural states; Z72.89 Other problems related to lifestyle; Z56.0 Unemployment, unspecified; Z59.00 Homelessness unspecified; Z88.8 Allergy status to other drugs, medicaments and biological substances
CPT/HCPCS: 74022; 80053; 81003; 81025; 83690; 85008; 85025; 96361; 96374; 96375; 99284; C9113; J2270; J7030

== ENCOUNTER 2021-10-06 20:12 | Inpatient (IN) | payer BC, MEDICAID, MEDICARE ==
[~2021-10-06] VITALS: Ht 157.5 cm; Wt 95.5 kg
[2021-10-06 21:33] LABS: BASOPHILS # (AUTO) 0.1 X10'3 (0-0.2); BASOPHILS % (AUTO) 1.3 % (0-1); EOSINOPHILS # (AUTO) 0.1 X10'3 (0-0.9); EOSINOPHILS % (AUTO) 0.9 % (0-6); HEMATOCRIT 30.9 % (35.0-45.0); HEMOGLOBIN 9.3 g/dl (12.0-16.0); LYMPHOCYTES # (AUTO) 1.6 X10'3 (1.1-4.8); LYMPHOCYTES % (AUTO) 20.5 % (21-51); MEAN CORPUSCULAR HEMOGLOBIN 20.4 PG (27.0-31.0); MEAN CORPUSCULAR HGB CONC 30.2 g/dL (33.0-36.5); MEAN CORPUSCULAR VOLUME 67.6 FL (78-98); MEAN PLATELET VOLUME 7.5 FL (7.4-10.4); MONOCYTES # (AUTO) 0.6 X10'3 (0-0.9); MONOCYTES % (AUTO) 8.3 % (2-12); NEUTROPHILS # (AUTO) 5.2 X10'3 (1.8-7.7); PLATELET COUNT 368 X10'3 (140-440); RED BLOOD COUNT 4.57 X10'6 (4.20-5.60); RED CELL DISTRIBUTION WIDTH 23.3 % (11.5-14.5); WHITE BLOOD COUNT 7.6 X10'3 (4.5-11.0)
[2021-10-06 21:44] LABS: ALANINE AMINOTRANSFERASE 30 U/L (12-78); ALBUMIN 3.3 G/DL (3.4-5.0); ALBUMIN/GLOBULIN RATIO 0.7 (1.1-1.5); ALKALINE PHOSPHATASE 97 IU/L (46-116); ANION GAP 9 (8-16); ASPARTATE AMINO TRANSFERASE 24 U/L (10-37); BILIRUBIN,TOTAL 0.3 MG/DL (0.1-1.0); BLOOD UREA NITROGEN 17 MG/DL (7-18); BUN/CREATININE RATIO 19.1 (6.6-38.0); CALCIUM 8.7 MG/DL (8.5-10.1); CHLORIDE 108 MMOL/L (99-107); CREATININE 0.89 MG/DL (0.40-0.90); GLUCOSE 90 MG/DL (70-104); LIPASE 150 U/L (73-393); POTASSIUM 3.8 MMOL/L (3.5-5.1); SODIUM 142 MMOL/L (135-145); TOTAL CARBON DIOXIDE 25.5 MMOL/L (24-32); TOTAL PROTEIN 7.9 G/DL (6.4-8.2); eGFR 67 ML/MIN
[2021-10-06 22:10] LABS: URINE HCG NEGATIVE (NEG)
[2021-10-06 22:15] LABS: CLARITY,URINE CLEAR (Clear); COLOR,URINE YELLOW (Yellow); GLUCOSE, URINE NEGATIVE (Neg); KETONES,URINE NEGATIVE (Neg); LEUKOCYTE ESTERASE ,URINE NEGATIVE (Neg); NITRITES, URINE NEGATIVE (Neg); OCCULT BLOOD,URINE NEGATIVE (Neg); PROTEIN,URINE NEGATIVE (Neg); UROBILINOGEN,URINE 0.2 E.U/dL (0.2-1.0)
[2021-10-06 22:16] LABS: UA COLLECTION TYPE CLN CATCH MIDSTREAM
[2021-10-06] MEDS ORDERED: ondansetron/PF 4mg/2ml inj IV ONE (22:30)
[2021-10-06] MEDS ORDERED: famotidine/PF 10 mg/ml inj IV ONE (22:35)
[2021-10-06] MEDS ORDERED: LORazepam 2 mg/ml vial IV ONE (22:40)
--- NOTE | 2021-10-06 22:54 | NUR ---
Pt taken to CT
[2021-10-06] MEDS ORDERED: piperacillin/tazo 3.375gm/50ml 50 ML IV ONE (23:25)
[2021-10-06] MEDS ORDERED: morphine 4 MG/ML inj SYRINge IV ONE (23:25)
[2021-10-06] MEDS ORDERED: normal saline 1000ML IV soln IV ONE (23:30)
[2021-10-06] MEDS ORDERED: metoclopramide 5 mg/ml inj IV ONE (23:45)
[2021-10-06 23:55] LABS: ANISOCYTOSIS 3+; PLATELET ESTIMATE NORMAL
[2021-10-06] MEDS ORDERED: magnesium 4gm in 100ml NS 100 ML IV PRN (23:55)
[2021-10-06] MEDS: normal saline 1000ml 1,000 ML IV SCH (23:55)
[2021-10-06] MEDS ORDERED: magnesium 2GM in 50ml NS 50 ML IV PRN (23:55)
[2021-10-06] MEDS ORDERED: ondansetron/PF 4mg/2ml inj IV PRN (23:55)
[2021-10-06] MEDS ORDERED: morphine 2 MG/ML inj. syringe IV PRN (23:55)
[2021-10-06] MEDS ORDERED: magnesium Cl slow-release 64mg tablet PO PRN (23:55)
[2021-10-06] MEDS ORDERED: metoclopramide 5 mg/ml inj IV PRN (23:55)
[2021-10-06] MEDS ORDERED: potassium CL 10mEq/100ml bag 100 ML IV PRN (23:55)
[2021-10-06] MEDS ORDERED: acetaminophen 325mg tablet PO PRN (23:55)
[2021-10-06] MEDS ORDERED: POTASSIUM BICARB 20meq eff tab 20 MEQ TABLET.EFF PO PRN ×2 (23:55)
[2021-10-06] MEDS ORDERED: LIDOcaine 2% 5ml jelly MM ONE (23:55)
[2021-10-06 23:56] LABS: ACANTHOCYTES FEW; ELLIPTOCYTES 1+; MICROCYTOSIS 2+; SCHISTOCYTES FEW
[2021-10-07] MEDS ORDERED: LIDOcaine 2% jelly 6ml syringe ***for topical use only MM ONE (00:05)
[2021-10-07 01:48] LABS: URINE AMPHETAMINE SCREEN NEGATIVE (Neg); URINE BARBITUATE SCREEN NEGATIVE (Neg); URINE BENZODIAZEPINES SCREEN NEGATIVE (Neg); URINE CANNABINOID SCREEN NEGATIVE (Neg); URINE COCAINE SCREEN NEGATIVE (Neg); URINE METHADONE SCREEN NEGATIVE (Neg); URINE PHENCYCLIDINE SCREEN NEGATIVE (Neg)
--- NOTE | 2021-10-07 06:50 | NUR ---
Patient in room ED 6. I have received report from ADRIENNE Wang and had the opportunity to ask questions and assume patient care.
--- NOTE | 2021-10-07 07:05 | NUR ---
Received pt from ED via marquita, pt amb to room and bed without difficulty. Changed into gown used the bathroom and returned to bed independently. POC discussed with pt who verbalizes understanding. Call light in reach, bed low and locked. NG to LIS with small amount of yellow green drainage. Pt C/O abdominal pain but no nausea at this time.
[2021-10-07 07:10] VITALS: BP 164/106
[2021-10-07] MEDS: morphine 4 MG/ML inj SYRINge IV PRN ×3 (07:22→15:35)
[2021-10-07] MEDS: pantoprazole 40mg Tablet.DR PO SCH (07:28)
[2021-10-07] MEDS: heparin, porcine 5000 units/ml vial SQ SCH ×2 (07:28→21:58)
[2021-10-07] MEDS: K and/or MAG REPLACEMENT MC SCH ×2 (08:00→20:00)
[2021-10-07 08:15] LABS: BASOPHILS # (AUTO) 0.1 X10'3 (0-0.2); BASOPHILS % (AUTO) 1.6 % (0-1); EOSINOPHILS # (AUTO) 0.1 X10'3 (0-0.9); EOSINOPHILS % (AUTO) 0.9 % (0-6); HEMATOCRIT 26.6 % (35.0-45.0); LYMPHOCYTES # (AUTO) 1.5 X10'3 (1.1-4.8); LYMPHOCYTES % (AUTO) 22.6 % (21-51); MEAN CORPUSCULAR HEMOGLOBIN 20.6 PG (27.0-31.0); MEAN CORPUSCULAR HGB CONC 30.1 g/dL (33.0-36.5); MEAN CORPUSCULAR VOLUME 68.3 FL (78-98); MEAN PLATELET VOLUME 7.7 FL (7.4-10.4); MONOCYTES # (AUTO) 0.6 X10'3 (0-0.9); NEUTROPHILS # (AUTO) 4.2 X10'3 (1.8-7.7); NEUTROPHILS % (AUTO) 65.9 % (42-75); PLATELET COUNT 316 X10'3 (140-440); RED BLOOD COUNT 3.89 X10'6 (4.20-5.60); RED CELL DISTRIBUTION WIDTH 23.4 % (11.5-14.5); WHITE BLOOD COUNT 6.4 X10'3 (4.5-11.0)
[2021-10-07 08:39] LABS: ANISOCYTOSIS 3+; MICROCYTOSIS 2+; PLATELET ESTIMATE NORMAL
[2021-10-07 08:41] LABS: ALANINE AMINOTRANSFERASE 22 U/L (12-78); ALBUMIN 2.7 G/DL (3.4-5.0); ALBUMIN/GLOBULIN RATIO 0.7 (1.1-1.5); ALKALINE PHOSPHATASE 76 IU/L (46-116); ANION GAP 10 (8-16); ASPARTATE AMINO TRANSFERASE 24 U/L (10-37); BILIRUBIN,TOTAL 0.4 MG/DL (0.1-1.0); BLOOD UREA NITROGEN 13 MG/DL (7-18); BUN/CREATININE RATIO 18.8 (6.6-38.0); CALCIUM 8.2 MG/DL (8.5-10.1); CHLORIDE 112 MMOL/L (99-107); CREATININE 0.69 MG/DL (0.40-0.90); GLUCOSE 87 MG/DL (70-104); POTASSIUM 3.8 MMOL/L (3.5-5.1); SODIUM 142 MMOL/L (135-145); TOTAL CARBON DIOXIDE 19.9 MMOL/L (24-32); TOTAL PROTEIN 6.7 G/DL (6.4-8.2); eGFR 89 ML/MIN
[2021-10-07 08:42] LABS: ACANTHOCYTES FEW; ELLIPTOCYTES 1+
[2021-10-07 08:43] LABS: SCHISTOCYTES FEW
[2021-10-07] MEDS: normal saline 1000ml 1,000 ML IV SCH ×3 (09:55→19:44)
[2021-10-07 10:00] VITALS: BP 147/89
[2021-10-07 18:00] VITALS: BP 139/85
--- NOTE | 2021-10-07 18:24 | NUR ---
Problems reprioritized. Patient report given, questions answered & plan of care reviewed with ADRIENNE Pfeiffer.
--- NOTE | 2021-10-07 18:25 | NUR ---
Patient in room [facility] 4012. I have received report from Arlin DELEON and had the opportunity to ask questions and assume patient care.
[2021-10-07] MEDS: acetaminophen 325mg tablet PO PRN (18:36)
[2021-10-07] MEDS: sodium ferric gluc complex inj 125 MG in normal saline 100ml IV soln 100 ML IV SCH (19:45)
[2021-10-07] MEDS: HYDROcodone/acetaminophen 5mg/325mg tablet PO PRN (21:56)
[2021-10-07] MEDS: diatr meglu/diatrizoate 30ml oral sol.-(3 dose) bottle PO SCH (21:56)
[2021-10-07 22:00] VITALS: BP 142/94
[2021-10-07] MEDS: temazepam 15mg capsule PO PRN (22:04)
[2021-10-08] MEDS: HYDROcodone/acetaminophen 5mg/325mg tablet PO PRN ×4 (04:34→20:22)
[2021-10-08] MEDS: normal saline 1000ml 1,000 ML IV SCH (04:36)
[2021-10-08 06:22] LABS: BASOPHILS # (AUTO) 0.1 X10'3 (0-0.2); BASOPHILS % (AUTO) 1.5 % (0-1); EOSINOPHILS # (AUTO) 0.1 X10'3 (0-0.9); EOSINOPHILS % (AUTO) 1.8 % (0-6); HEMOGLOBIN 7.5 g/dl (12.0-16.0); LYMPHOCYTES # (AUTO) 1.5 X10'3 (1.1-4.8); LYMPHOCYTES % (AUTO) 30.5 % (21-51); MEAN CORPUSCULAR HEMOGLOBIN 20.8 PG (27.0-31.0); MEAN CORPUSCULAR HGB CONC 30.1 g/dL (33.0-36.5); MEAN CORPUSCULAR VOLUME 68.9 FL (78-98); MEAN PLATELET VOLUME 7.2 FL (7.4-10.4); MONOCYTES # (AUTO) 0.4 X10'3 (0-0.9); MONOCYTES % (AUTO) 8.7 % (2-12); NEUTROPHILS # (AUTO) 2.8 X10'3 (1.8-7.7); NEUTROPHILS % (AUTO) 57.5 % (42-75); PLATELET COUNT 285 X10'3 (140-440); RED BLOOD COUNT 3.63 X10'6 (4.20-5.60); RED CELL DISTRIBUTION WIDTH 23.4 % (11.5-14.5); WHITE BLOOD COUNT 4.9 X10'3 (4.5-11.0)
[2021-10-08 06:28] LABS: ALANINE AMINOTRANSFERASE 26 U/L (12-78); ALBUMIN 2.5 G/DL (3.4-5.0); ALBUMIN/GLOBULIN RATIO 0.7 (1.1-1.5); ALKALINE PHOSPHATASE 72 IU/L (46-116); ANION GAP 10 (8-16); ASPARTATE AMINO TRANSFERASE 28 U/L (10-37); BILIRUBIN,TOTAL 0.3 MG/DL (0.1-1.0); BLOOD UREA NITROGEN 8 MG/DL (7-18); BUN/CREATININE RATIO 13.8 (6.6-38.0); CHLORIDE 110 MMOL/L (99-107); CREATININE 0.58 MG/DL (0.40-0.90); GLUCOSE 75 MG/DL (70-104); MAGNESIUM 1.5 MG/DL (1.5-2.4); PHOSPHORUS 3.5 MG/DL (2.3-4.5); POTASSIUM 3.6 MMOL/L (3.5-5.1); SODIUM 142 MMOL/L (135-145); TOTAL CARBON DIOXIDE 21.8 MMOL/L (24-32); TOTAL PROTEIN 6.3 G/DL (6.4-8.2); eGFR > 90 ML/MIN
--- NOTE | 2021-10-08 06:30 | NUR ---
Problems reprioritized. Patient report given, questions answered & plan of care reviewed with [place] RN.
[2021-10-08 06:46] VITALS: BP 176/98
--- NOTE | 2021-10-08 06:52 | NUR ---
Patient in room [facility]TH[facility] 4012. I have received report from Margarette DELEON and had the opportunity to ask questions and assume patient care.
[2021-10-08 07:00] LABS: ANISOCYTOSIS 3+; ELLIPTOCYTES 2+; MICROCYTOSIS 2+; PLATELET ESTIMATE NORMAL; SCHISTOCYTES 1+
[2021-10-08] MEDS: pantoprazole 40mg Tablet.DR PO SCH (07:58)
[2021-10-08] MEDS: diatr meglu/diatrizoate 30ml oral sol.-(3 dose) bottle PO SCH ×2 (07:58→08:55)
[2021-10-08] MEDS: heparin, porcine 5000 units/ml vial SQ SCH ×2 (07:59→20:24)
[2021-10-08] MEDS: K and/or MAG REPLACEMENT MC SCH ×2 (08:00→20:00)
[2021-10-08] MEDS: acetaminophen 325mg tablet PO PRN (08:04)
[2021-10-08] MEDS ORDERED: iohexol 350MG/ML 100ml bottle IV ONE (08:38)
[2021-10-08] MEDS: sodium ferric gluc complex inj 125 MG in normal saline 100ml IV soln 100 ML IV SCH (09:57)
[2021-10-08 11:16] VITALS: BP 158/88
[2021-10-08 18:00] VITALS: BP 148/83
--- NOTE | 2021-10-08 18:40 | NUR ---
Patient in room [facility]TH[facility] 4012. I have received report from [place] DELEON and had the opportunity to ask questions and assume patient care.
--- NOTE | 2021-10-08 18:42 | NUR ---
Problems reprioritized. Patient report given, questions answered & plan of care reviewed with Margarette DELEON.
[2021-10-08] MEDS: temazepam 15mg capsule PO PRN (20:22)
[2021-10-08 22:00] VITALS: BP 151/91
[2021-10-09] MEDS: normal saline 1000ml 1,000 ML IV SCH ×2 (01:43→11:55)
[2021-10-09] MEDS: HYDROcodone/acetaminophen 5mg/325mg tablet PO PRN ×2 (05:52→11:27)
[2021-10-09 06:51] LABS: BASOPHILS # (AUTO) 0.1 X10'3 (0-0.2); EOSINOPHILS # (AUTO) 0.1 X10'3 (0-0.9); EOSINOPHILS % (AUTO) 2.1 % (0-6); HEMATOCRIT 25.5 % (35.0-45.0); LYMPHOCYTES # (AUTO) 1.5 X10'3 (1.1-4.8); MEAN CORPUSCULAR HGB CONC 31.2 g/dL (33.0-36.5); MEAN CORPUSCULAR VOLUME 67.3 FL (78-98); MEAN PLATELET VOLUME 7.7 FL (7.4-10.4); MONOCYTES # (AUTO) 0.5 X10'3 (0-0.9); MONOCYTES % (AUTO) 9.8 % (2-12); NEUTROPHILS # (AUTO) 2.8 X10'3 (1.8-7.7); NEUTROPHILS % (AUTO) 56.1 % (42-75); PLATELET COUNT 332 X10'3 (140-440); RED BLOOD COUNT 3.79 X10'6 (4.20-5.60); RED CELL DISTRIBUTION WIDTH 22.8 % (11.5-14.5)
--- NOTE | 2021-10-09 06:52 | NUR ---
Problems reprioritized. Patient report given, questions answered & plan of care reviewed with [place] RN.
[2021-10-09 07:10] LABS: ALANINE AMINOTRANSFERASE 29 U/L (12-78); ALBUMIN 2.7 G/DL (3.4-5.0); ALBUMIN/GLOBULIN RATIO 0.7 (1.1-1.5); ALKALINE PHOSPHATASE 76 IU/L (46-116); ANION GAP 9 (8-16); ASPARTATE AMINO TRANSFERASE 28 U/L (10-37); BILIRUBIN,TOTAL 0.2 MG/DL (0.1-1.0); BLOOD UREA NITROGEN 5 MG/DL (7-18); BUN/CREATININE RATIO 8.6 (6.6-38.0); CALCIUM 8.2 MG/DL (8.5-10.1); CHLORIDE 108 MMOL/L (99-107); CREATININE 0.58 MG/DL (0.40-0.90); GLUCOSE 77 MG/DL (70-104); MAGNESIUM 1.6 MG/DL (1.5-2.4); POTASSIUM 3.3 MMOL/L (3.5-5.1); SODIUM 142 MMOL/L (135-145); TOTAL CARBON DIOXIDE 25.5 MMOL/L (24-32); TOTAL PROTEIN 6.7 G/DL (6.4-8.2); eGFR > 90 ML/MIN
--- NOTE | 2021-10-09 07:10 | NUR ---
Patient in room [facility]TH[facility] 4012. I have received report from Margarette DELEON and had the opportunity to ask questions and assume patient care.
[2021-10-09 07:19] VITALS: BP 143/87
[2021-10-09 07:26] LABS: ANISOCYTOSIS 3+; ELLIPTOCYTES 2+; HYPOCHROMASIA 2+; MICROCYTOSIS 2+; PLATELET ESTIMATE NORMAL; TEAR DROP CELLS 1+
[2021-10-09 07:27] LABS: SCHISTOCYTES FEW
[2021-10-09] MEDS: pantoprazole 40mg Tablet.DR PO SCH (07:42)
[2021-10-09] MEDS: heparin, porcine 5000 units/ml vial SQ SCH (07:43)
[2021-10-09] MEDS: sodium ferric gluc complex inj 125 MG in normal saline 100ml IV soln 100 ML IV SCH (08:39)
[2021-10-09] MEDS ORDERED: LACT1CAP26 PO (08:43)
[2021-10-09] MEDS ORDERED: PANT40TA54 PO (08:43)
[2021-10-09] MEDS: K and/or MAG REPLACEMENT MC SCH (08:48)
[2021-10-09 11:01] VITALS: BP 125/77
[2021-10-09] MEDS ORDERED: MULT-1085 PO (16:52)
[2021-10-09] MEDS ORDERED: FOLI0.4T6 PO (16:52)
[2021-10-09] MEDS ORDERED: ASCO500C18 PO (16:52)
[2021-10-09] MEDS ORDERED: THIA50TA10 PO (16:52)
[2021-10-09] MEDS ORDERED: FERR325T28 PO (16:52)
--- NOTE | 2021-10-09 17:07 | NUR ---
Patient discharged home, IV was taken out at the time of discharge and canula was whole and intact upon inspection. Patient showed verbal understanding of discharge teaching and new medication instruction and dosing. Patient left the facility on foot to go to hot die picker medications at her pharmacy. Patient walked out of hospital with tech beside her.
== END 2021-10-09 12:50 | disposition home or self-care (01) | DRG 390 ==
LOC: ER 20:13 → ED HOLD 23:56 → ORTHO 4S 10-07 07:07
PROVIDERS: ADMIT Internal Medicine; ATTEND Family Medicine
PROC: 0D9670Z Drainage of Stomach with Drainage Device, Via Natural or Artificial Opening (ICD-10-PCS; principal; 2021-10-07)
PROC: BW211ZZ Computerized Tomography (CT Scan) of Abdomen and Pelvis using Low Osmolar Contrast (ICD-10-PCS; 2021-10-08)
DX: K56.600 Partial intestinal obstruction, unspecified as to cause (principal); M17.10 Unilateral primary osteoarthritis, unspecified knee; D50.9 Iron deficiency anemia, unspecified; E86.0 Dehydration; F15.10 Other stimulant abuse, uncomplicated; F17.200 Nicotine dependence, unspecified, uncomplicated; G89.29 Other chronic pain; Z90.49 Acquired absence of other specified parts of digestive tract; Z98.84 Bariatric surgery status; Z83.3 Family history of diabetes mellitus; Z56.0 Unemployment, unspecified; Z59.00 Homelessness unspecified; Z88.8 Allergy status to other drugs, medicaments and biological substances; Z87.440 Personal history of urinary (tract) infections; Z80.41 Family history of malignant neoplasm of ovary; Z82.49 Family history of ischemic heart disease and other diseases of the circulatory system; Z72.89 Other problems related to lifestyle; Z71.6 Tobacco abuse counseling; Z71.51 Drug abuse counseling and surveillance of drug abuser
CPT/HCPCS: 36415; 74018; 74176; 74177; 80053; 80305; 81003; 81025; 82728; 83540; 83550; 83605; 83690; 83735; 84100; 84145; 84443; 85008; 85025; 87040; 87081; 96374; 96375; 97161; 97530; 99285; G0378; J1644; J2060; J2270; J2405; J2543; J2765; J2916; J3490; J7030; Q9963; Q9967

== ENCOUNTER 2022-04-06 10:24 | Emergency (ER) | payer MEDICARE, MEDICAID ==
[~2022-04-06] VITALS: Ht 157.5 cm; Wt 92.0 kg
[~2022-04-06 10:24] MED LIST changes: +ACET-1025 PO; +GABA300C PO; +HYDR-3972 PO; +IBUP-1985 PO; -NO HOME MEDS; +OMEP20CA16 PO
[2022-04-06 10:25] VITALS: BP 110/79
[2022-04-06] MEDS ORDERED: LORazepam 1 MG tablet PO ONE (11:00)
[2022-04-06] MEDS ORDERED: HYDR50CA5 PO (11:01)
== END 2022-04-06 11:17 | disposition home or self-care (01) ==
LOC: ER 10:24
DX: F41.9 Anxiety disorder, unspecified (principal); R06.02 Shortness of breath; G89.29 Other chronic pain; F15.90 Other stimulant use, unspecified, uncomplicated; Z90.49 Acquired absence of other specified parts of digestive tract; Z98.890 Other specified postprocedural states; Z59.00 Homelessness unspecified; Z56.0 Unemployment, unspecified; Z88.8 Allergy status to other drugs, medicaments and biological substances; Z79.899 Other long term (current) drug therapy
CPT/HCPCS: 99283

== ENCOUNTER 2022-07-03 21:36 | Emergency (ER) | payer MEDICARE, MEDICAID ==
[~2022-07-03] VITALS: Ht 157.5 cm; Wt 50.0 kg
[~2022-07-03 21:36] MED LIST changes: +HYDR50CA5 PO
[2022-07-03 21:47] VITALS: BP 128/93
[2022-07-03] MEDS ORDERED: ketorolac trometh inj. 60 MG/2 ML VIAL IM ONE (23:40)
[2022-07-03] MEDS ORDERED: orphenadrine citrate 60mg/2ml inj. IM ONE (23:40)
[2022-07-03] MEDS ORDERED: acetaminophen 325mg tablet PO ONE (23:40)
[2022-07-03] MEDS ORDERED: HYDROcodone/acetaminophen 5mg/325mg tablet PO ONE (23:40)
[2022-07-03] MEDS ORDERED: ondansetron 4mg rapidly disintigrating tab PO ONE (23:40)
[2022-07-03] MEDS ORDERED: HYDR-3965 PO (23:41)
[2022-07-03] MEDS ORDERED: CYCL-1 PO (23:41)
== END 2022-07-04 00:06 | disposition home or self-care (01) ==
LOC: ER 21:37
DX: M62.830 Muscle spasm of back (principal); F15.20 Other stimulant dependence, uncomplicated; Z88.8 Allergy status to other drugs, medicaments and biological substances; Z90.49 Acquired absence of other specified parts of digestive tract; Z59.00 Homelessness unspecified; Z56.0 Unemployment, unspecified
CPT/HCPCS: 96372; 99284; J1885; J2360

== ENCOUNTER 2023-01-20 12:27 | Emergency (ER) | payer MEDICARE, MEDICAID ==
[~2023-01-20] VITALS: Ht 157.5 cm; Wt 94.4 kg
[~2023-01-20 12:27] MED LIST changes: +CYCL-1 PO
[2023-01-20 12:50] VITALS: TEMP 98.3
[2023-01-20 13:35] LABS: EOSINOPHILS # (AUTO) 0.1 X10'3 (0-0.9); LYMPHOCYTES # (AUTO) 1.5 X10'3 (1.1-4.8); MONOCYTES # (AUTO) 0.3 X10'3 (0-0.9)
[2023-01-20 13:36] LABS: BASOPHILS # (AUTO) 0.1 X10'3 (0-0.2); BASOPHILS % (AUTO) 0.9 % (0-1); HEMATOCRIT 34.6 % (35.0-45.0); LYMPHOCYTES % (AUTO) 23.4 % (21-51); MEAN CORPUSCULAR HEMOGLOBIN 26.1 PG (27.0-31.0); MEAN CORPUSCULAR HGB CONC 31.8 g/dL (33.0-36.5); MONOCYTES % (AUTO) 4.6 % (2-12); NEUTROPHILS # (AUTO) 4.4 X10'3 (1.8-7.7); NEUTROPHILS % (AUTO) 70.1 % (42-75); PLATELET COUNT 670 X10'3 (140-440); RED BLOOD COUNT 4.22 X10'6 (4.20-5.60); RED CELL DISTRIBUTION WIDTH 21.9 % (11.5-14.5); WHITE BLOOD COUNT 6.3 X10'3 (4.5-11.0)
[2023-01-20 13:48] LABS: ALANINE AMINOTRANSFERASE 15 U/L (12-78); ALBUMIN 2.6 G/DL (3.4-5.0); ALBUMIN/GLOBULIN RATIO 0.6 (1.1-1.5); ALKALINE PHOSPHATASE 122 IU/L (46-116); ANION GAP 7 (8-16); ASPARTATE AMINO TRANSFERASE 18 U/L (10-37); BILIRUBIN,TOTAL 0.2 MG/DL (0.1-1.0); BLOOD UREA NITROGEN 10 MG/DL (7-18); BUN/CREATININE RATIO 13.3 (10.0-20.0); CALCIUM 8.4 MG/DL (8.5-10.1); CHLORIDE 104 MMOL/L (99-107); CREATININE 0.75 MG/DL (0.40-0.90); GLUCOSE 86 MG/DL (70-104); POTASSIUM 4.4 MMOL/L (3.5-5.1); SODIUM 137 MMOL/L (135-145); TOTAL CARBON DIOXIDE 26.2 MMOL/L (24-32); TOTAL PROTEIN 6.7 G/DL (6.4-8.2); eCRCL 69 ML/MIN; eGFR 81 ML/MIN
[2023-01-20 13:51] LABS: LIPASE 22 U/L (16-77)
[2023-01-20 13:53] LABS: ANISOCYTOSIS 3+; PLATELET ESTIMATE INCREASED
[2023-01-20 13:54] LABS: ACANTHOCYTES FEW; BURR CELLS FEW; ELLIPTOCYTES FEW
[2023-01-20 15:11] LABS: BILIRUBIN,URINE NEGATIVE (Neg); CLARITY,URINE SLIGHTLY CLOUDY (Clear); COLOR,URINE YELLOW (Yellow); GLUCOSE, URINE NEGATIVE (Neg); KETONES,URINE NEGATIVE (Neg); LEUKOCYTE ESTERASE ,URINE NEGATIVE (Neg); NITRITES, URINE POSITIVE (Neg); OCCULT BLOOD,URINE NEGATIVE (Neg); PH,URINE 5.5 (4.8-8.0); PROTEIN,URINE NEGATIVE (Neg); UROBILINOGEN,URINE 0.2 E.U/dL (0.2-1.0)
[2023-01-20 15:22] LABS: UA COLLECTION TYPE CLN CATCH MIDSTREAM
[2023-01-20 15:24] LABS: BACTERIA,URINE 3+ /HPF (Neg); SQUAMOUS EPITHELIAL CELL,UR MANY /LPF (FEW)
[2023-01-20 15:25] LABS: TRANSITIONAL EPI CELLS,URINE FEW /HPF
[2023-01-20 15:26] LABS: RBC,URINE 0-2 /HPF (0-2)
[2023-01-20] MEDS ORDERED: morphine 4 MG/ML inj SYRINge IV ONE (19:00)
[2023-01-20] MEDS ORDERED: CefTRIAXone/D5W-Rocephin 1gm 50 ML IV ONE (19:00)
[2023-01-20] MEDS ORDERED: ondansetron/PF 4mg/2ml inj IV ONE (19:00)
[2023-01-20 20:25] VITALS: RESP 18
[2023-01-20] MEDS ORDERED: NITR100C6 PO (20:43)
[2023-01-20 21:03] VITALS: BP 138/94; PULSE 89; O2SAT 98
== END 2023-01-20 21:11 | disposition home or self-care (01) ==
LOC: ER 12:27
DX: N39.0 Urinary tract infection, site not specified (principal); F15.90 Other stimulant use, unspecified, uncomplicated; Z88.8 Allergy status to other drugs, medicaments and biological substances; Z79.899 Other long term (current) drug therapy; Z79.1 Long term (current) use of non-steroidal anti-inflammatories (NSAID)
CPT/HCPCS: 36415; 80053; 81001; 83690; 84484; 85008; 85025; 96365; 96375; 99284; J0696; J2270; J2405

== ENCOUNTER 2023-01-31 18:44 | Inpatient (IN) | payer MEDICARE, MEDICAID ==
[~2023-01-31] VITALS: Ht 157.5 cm; Wt 95.5 kg
[~2023-01-31 18:44] MED LIST changes: +NITR100C6 PO
[2023-01-31] MEDS ORDERED: morphine 4 MG/ML inj SYRINge IV ONE ×2 (19:40→22:30)
[2023-01-31] MEDS ORDERED: ondansetron/PF 4mg/2ml inj IV ONE ×2 (19:40→22:30)
[2023-01-31 19:41] LABS: BASOPHILS # (AUTO) 0.1 X10'3 (0-0.2); EOSINOPHILS # (AUTO) 0.1 X10'3 (0-0.9); EOSINOPHILS % (AUTO) 2.1 % (0-6); HEMATOCRIT 37.6 % (35.0-45.0); HEMOGLOBIN 11.9 g/dl (12.0-16.0); LYMPHOCYTES # (AUTO) 1.6 X10'3 (1.1-4.8); MEAN CORPUSCULAR HEMOGLOBIN 26.3 PG (27.0-31.0); MEAN CORPUSCULAR HGB CONC 31.7 g/dL (33.0-36.5); MEAN PLATELET VOLUME 7.5 FL (7.4-10.4); MONOCYTES # (AUTO) 0.3 X10'3 (0-0.9); NEUTROPHILS # (AUTO) 4.8 X10'3 (1.8-7.7); NEUTROPHILS % (AUTO) 68.9 % (42-75); PLATELET COUNT 402 X10'3 (140-440); RED BLOOD COUNT 4.52 X10'6 (4.20-5.60); RED CELL DISTRIBUTION WIDTH 21.4 % (11.5-14.5); WHITE BLOOD COUNT 6.9 X10'3 (4.5-11.0)
[2023-01-31 19:48] LABS: BILIRUBIN,URINE NEGATIVE (Neg); CLARITY,URINE CLEAR (Clear); COLOR,URINE STRAW (Yellow); GLUCOSE, URINE NEGATIVE (Neg); KETONES,URINE NEGATIVE (Neg); LEUKOCYTE ESTERASE ,URINE NEGATIVE (Neg); NITRITES, URINE NEGATIVE (Neg); OCCULT BLOOD,URINE NEGATIVE (Neg); PROTEIN,URINE NEGATIVE (Neg); URINE HCG NEGATIVE (NEG); UROBILINOGEN,URINE 0.2 E.U/dL (0.2-1.0)
[2023-01-31 19:50] LABS: UA COLLECTION TYPE CLN CATCH MIDSTREAM
[2023-01-31 19:56] LABS: ALANINE AMINOTRANSFERASE 22 U/L (12-78); ALBUMIN/GLOBULIN RATIO 0.7 (1.1-1.5); ALKALINE PHOSPHATASE 140 IU/L (46-116); ANION GAP 8 (8-16); ASPARTATE AMINO TRANSFERASE 22 U/L (10-37); BILIRUBIN,TOTAL 0.4 MG/DL (0.1-1.0); BLOOD UREA NITROGEN 21 MG/DL (7-18); BUN/CREATININE RATIO 25.6 (10.0-20.0); CALCIUM 8.6 MG/DL (8.5-10.1); CHLORIDE 105 MMOL/L (99-107); CREATININE 0.82 MG/DL (0.40-0.90); GLUCOSE 82 MG/DL (70-104); LIPASE 29 U/L (16-77); POTASSIUM 4.5 MMOL/L (3.5-5.1); SODIUM 138 MMOL/L (135-145); TOTAL CARBON DIOXIDE 25.2 MMOL/L (24-32); TOTAL PROTEIN 7.5 G/DL (6.4-8.2); eCRCL 63 ML/MIN; eGFR 73 ML/MIN
[2023-01-31 19:58] LABS: ANISOCYTOSIS 3+; ELLIPTOCYTES FEW; PLATELET ESTIMATE NORMAL
[2023-01-31 19:59] LABS: ACANTHOCYTES FEW; BURR CELLS FEW
[2023-01-31] MEDS ORDERED: ringers solution, lacted 1,000 ML IV ONE (20:40)
[2023-01-31] MEDS ORDERED: iohexol 300mg/ml 100ml inj. ONE (20:46)
[2023-01-31] MEDS ORDERED: normal saline 1000ml 1,000 ML IV ONE (22:30)
[2023-01-31] MEDS ORDERED: morphine 2 MG/ML inj. syringe IV PRN (22:40)
[2023-01-31] MEDS ORDERED: acetaminophen 650mg rectal suppository RC PRN (22:40)
[2023-01-31] MEDS: normal saline 1000ml 1,000 ML IV SCH (22:40)
[2023-01-31] MEDS ORDERED: bisacodyl 10mg suppository rectal RC PRN (22:40)
[2023-01-31] MEDS ORDERED: diphenhydrAMINE 50 mg/ml inj IV PRN (22:40)
[2023-01-31] MEDS ORDERED: diphenhydrAMINE 25mg capsule PO PRN (22:40)
[2023-01-31] MEDS ORDERED: acetaminophen 325mg tablet PO PRN ×2 (22:40)
[2023-01-31] MEDS ORDERED: ondansetron 4mg rapidly disintigrating tab PO PRN (22:40)
[2023-01-31] MEDS ORDERED: magnesium hydroxide 30ml (MOM) UD suspension PO PRN (22:40)
[2023-01-31 23:09] LABS: APTT 26 SECONDS (22-32); PROTHROMBIN TIME 9.8 SECONDS (9.0-12.0)
[2023-01-31 23:15] LABS: HEMOGLOBIN A1C 5.2 % (4.5-6.2)
[2023-01-31 23:19] LABS: MAGNESIUM 1.8 MG/DL (1.5-2.4); PHOSPHORUS 4.5 MG/DL (2.3-4.5); PRO BRAIN NATRIURETIC PEPTIDE 346 PG/ML (0-125); THYROID STIMULATING HORMONE 2.62 ulU/ml (0.34-4.50)
[2023-01-31 23:29] LABS: INR 0.9 INR
[2023-01-31] MEDS: morphine 2 MG/ML inj. syringe IV PRN (23:49)
[2023-01-31] MEDS: heparin, porcine 5000 units/ml vial SQ SCH (23:51)
[2023-02-01] VITALS (26 sets, daily range): BP systolic 92–151; BP diastolic 54–102; PULSE 69–94; RESP 14–22; TEMP 97.1–99.8; O2SAT 93–100
[2023-02-01] MEDS: HYDROcodone/acetaminophen 10/325mg tab PO PRN ×3 (02:49→20:24)
[2023-02-01 06:08] LABS: BASOPHILS # (AUTO) 0.1 X10'3 (0-0.2); BASOPHILS % (AUTO) 0.9 % (0-1); EOSINOPHILS # (AUTO) 0.1 X10'3 (0-0.9); EOSINOPHILS % (AUTO) 1.5 % (0-6); HEMATOCRIT 31.9 % (35.0-45.0); HEMOGLOBIN 10.1 g/dl (12.0-16.0); LYMPHOCYTES # (AUTO) 1.5 X10'3 (1.1-4.8); LYMPHOCYTES % (AUTO) 24.1 % (21-51); MEAN CORPUSCULAR HEMOGLOBIN 26.5 PG (27.0-31.0); MEAN CORPUSCULAR HGB CONC 31.8 g/dL (33.0-36.5); MEAN CORPUSCULAR VOLUME 83.2 FL (78-98); MEAN PLATELET VOLUME 8.2 FL (7.4-10.4); MONOCYTES # (AUTO) 0.4 X10'3 (0-0.9); NEUTROPHILS # (AUTO) 4.2 X10'3 (1.8-7.7); NEUTROPHILS % (AUTO) 66.5 % (42-75); PLATELET COUNT 328 X10'3 (140-440); RED BLOOD COUNT 3.83 X10'6 (4.20-5.60); RED CELL DISTRIBUTION WIDTH 20.9 % (11.5-14.5); WHITE BLOOD COUNT 6.3 X10'3 (4.5-11.0)
[2023-02-01 06:34] LABS: ALANINE AMINOTRANSFERASE 20 U/L (12-78); ALBUMIN 2.4 G/DL (3.4-5.0); ALBUMIN/GLOBULIN RATIO 0.6 (1.1-1.5); ALKALINE PHOSPHATASE 120 IU/L (46-116); ANION GAP 6 (8-16); ASPARTATE AMINO TRANSFERASE 35 U/L (10-37); BILIRUBIN,TOTAL 0.4 MG/DL (0.1-1.0); BLOOD UREA NITROGEN 17 MG/DL (7-18); BUN/CREATININE RATIO 23.6 (10.0-20.0); CALCIUM 7.9 MG/DL (8.5-10.1); CHLORIDE 106 MMOL/L (99-107); CHOLESTEROL 129 MG/DL (0-200); CREATININE 0.72 MG/DL (0.40-0.90); GLUCOSE 75 MG/DL (70-104); HDL CHOLESTEROL 65 MG/DL (35-60); LDL CHOLESTEROL 61 MG/DL (50-100); POTASSIUM 4.3 MMOL/L (3.5-5.1); SODIUM 136 MMOL/L (135-145); TOTAL CARBON DIOXIDE 24.2 MMOL/L (24-32); TOTAL PROTEIN 6.1 G/DL (6.4-8.2); TRIGLYCERIDES 43 MG/DL (20-135); eCRCL 71 ML/MIN; eGFR 85 ML/MIN
[2023-02-01 06:46] LABS: ANISOCYTOSIS 3+; ELLIPTOCYTES FEW; MICROCYTOSIS 1+; PLATELET ESTIMATE NORMAL
[2023-02-01] MEDS: normal saline 1000ml 1,000 ML IV SCH (06:53)
[2023-02-01] MEDS ORDERED: pantoprazole 40MG/NS 100ML BAG 100 ML IV SCH (08:00)
[2023-02-01] MEDS: heparin, porcine 5000 units/ml vial SQ SCH ×3 (08:22→23:39)
[2023-02-01] MEDS: docusate sod 100mg capsule PO SCH ×2 (08:22→20:19)
[2023-02-01] MEDS: morphine 2 MG/ML inj. syringe IV PRN ×3 (08:28→23:40)
[2023-02-01] MEDS ORDERED: morphine 2 MG/ML inj. syringe IV PRN (09:00)
[2023-02-01] MEDS ORDERED: ringers solution, lacted 1,000 ML IV SCH (09:00)
[2023-02-01] MEDS ORDERED: HYDROmorphone/PF 0.2 MG/ML SYRINGE IV PRN (09:00)
[2023-02-01] MEDS ORDERED: ondansetron/PF 4mg/2ml inj IV PRN (09:00)
[2023-02-01] MEDS ORDERED: hydrALAZINE 20mg/ml inj. IV PRN (09:00)
[2023-02-01] MEDS ORDERED: labetalol 20mg/4ml (5mg/ml) syringe IV PRN (09:00)
[2023-02-01] MEDS ORDERED: LIDOcaine 2% (20mg/ml) 5ml vial ONE (09:27)
[2023-02-01] MEDS ORDERED: propofol inj 20 ML IV ONE (09:27)
[2023-02-01] MEDS ORDERED: rocuronium 10mg/ml inj IV ONE ×2 (09:28→11:47)
[2023-02-01] MEDS ORDERED: desflurane 240ml liquid inh. IH ONE (10:07)
[2023-02-01] MEDS ORDERED: dexmedetomidin/NS 400mcg/100mL BOTTLE IV ONE (10:07)
[2023-02-01] MEDS ORDERED: ondansetron/PF 4mg/2ml inj ONE (10:07)
[2023-02-01] MEDS ORDERED: midazolam 1 mg/ML 2ml injection ONE (10:18)
[2023-02-01] MEDS ORDERED: fentaNYL /PF 50mcg/ml 5ml ampule ONE (10:18)
[2023-02-01] MEDS ORDERED: dexamethasone sod phosphate 4mg/ml inj. ONE (10:22)
[2023-02-01] MEDS ORDERED: ketamine 50mg/5ml syringe ONE (10:24)
[2023-02-01] MEDS ORDERED: acetaminophen 1,000mg/100ml IV 100 ML IV ONE (10:26)
[2023-02-01] MEDS ORDERED: sugammadex 200mg/2ml injection IV ONE (10:57)
[2023-02-01] MEDS ORDERED: albumin (Human) 5% 250ml 250 ML IV ONE (11:57)
[2023-02-01] MEDS: morphine 4 MG/ML inj SYRINge IV PRN ×2 (12:32→12:49)
[2023-02-01] MEDS: ondansetron/PF 4mg/2ml inj IV PRN ×2 (12:51→21:13)
[2023-02-01] MEDS: HYDROmorphone/PF 0.2 MG/ML SYRINGE IV PRN ×4 (13:03→13:35)
[2023-02-01] MEDS: mag hydrox/Alum hydrox/simeth 30ml oral suspension PO PRN (17:58)
[2023-02-01] MEDS: temazepam 15mg capsule PO PRN (23:38)
[2023-02-02] MEDS: temazepam 15mg capsule PO PRN ×2 (01:32→23:46)
[2023-02-02] MEDS ORDERED: hydrALAZINE 20mg/ml inj. IV PRN (02:55)
[2023-02-02] MEDS: HYDROcodone/acetaminophen 10/325mg tab PO PRN ×4 (03:01→22:27)
[2023-02-02] MEDS: morphine 2 MG/ML inj. syringe IV PRN ×2 (04:15→09:19)
[2023-02-02] MEDS: normal saline 1000ml 1,000 ML IV SCH ×2 (04:30→14:40)
[2023-02-02 06:28] LABS: BASOPHILS % (AUTO) 0.2 % (0-1); EOSINOPHILS % (AUTO) 0 % (0-6); HEMATOCRIT 33.8 % (35.0-45.0); HEMOGLOBIN 10.8 g/dl (12.0-16.0); LYMPHOCYTES # (AUTO) 0.7 X10'3 (1.1-4.8); LYMPHOCYTES % (AUTO) 4.9 % (21-51); MEAN CORPUSCULAR HEMOGLOBIN 26.3 PG (27.0-31.0); MEAN CORPUSCULAR HGB CONC 31.9 g/dL (33.0-36.5); MEAN CORPUSCULAR VOLUME 82.3 FL (78-98); MEAN PLATELET VOLUME 8.2 FL (7.4-10.4); MONOCYTES % (AUTO) 6.9 % (2-12); NEUTROPHILS # (AUTO) 12.7 X10'3 (1.8-7.7); PLATELET COUNT 338 X10'3 (140-440); RED BLOOD COUNT 4.11 X10'6 (4.20-5.60); RED CELL DISTRIBUTION WIDTH 20.9 % (11.5-14.5); WHITE BLOOD COUNT 14.5 X10'3 (4.5-11.0)
[2023-02-02 06:59] VITALS: BP 146/93; PULSE 82; RESP 18; TEMP 97.7; O2SAT 99
[2023-02-02 07:13] LABS: ALANINE AMINOTRANSFERASE 13 U/L (12-78); ALBUMIN 2.8 G/DL (3.4-5.0); ALBUMIN/GLOBULIN RATIO 0.7 (1.1-1.5); ALKALINE PHOSPHATASE 108 IU/L (46-116); ANION GAP 10 (8-16); ASPARTATE AMINO TRANSFERASE 41 U/L (10-37); BILIRUBIN,TOTAL 1.2 MG/DL (0.1-1.0); BLOOD UREA NITROGEN 12 MG/DL (7-18); BUN/CREATININE RATIO 17.1 (10.0-20.0); CALCIUM 8.6 MG/DL (8.5-10.1); CHLORIDE 99 MMOL/L (99-107); GLUCOSE 125 MG/DL (70-104); POTASSIUM 4.1 MMOL/L (3.5-5.1); SODIUM 132 MMOL/L (135-145); TOTAL CARBON DIOXIDE 23.4 MMOL/L (24-32); TOTAL PROTEIN 6.9 G/DL (6.4-8.2); eCRCL 74 ML/MIN; eGFR 88 ML/MIN
[2023-02-02] MEDS: heparin, porcine 5000 units/ml vial SQ SCH ×2 (08:20→16:54)
[2023-02-02] MEDS: docusate sod 100mg capsule PO SCH ×2 (08:20→19:45)
[2023-02-02] MEDS: pantoprazole 40mg Tablet.DR PO SCH (08:20)
[2023-02-02 10:00] VITALS: BP 158/110; PULSE 106; RESP 18; TEMP 98.1
[2023-02-02] MEDS: HYDROmorphone 1 mg/ml syringe IV PRN ×3 (11:20→19:45)
[2023-02-02 14:54] VITALS: RESP 18
[2023-02-02 18:00] VITALS: BP 153/100; PULSE 104; RESP 16; TEMP 97.8; O2SAT 96
[2023-02-02 19:42] VITALS: BP 161/100; PULSE 117; RESP 20; O2SAT 94
[2023-02-02 22:00] VITALS: BP 146/103; PULSE 117; RESP 22; TEMP 99.5; O2SAT 98
[2023-02-02] MEDS: mag hydrox/Alum hydrox/simeth 30ml oral suspension PO PRN (23:46)
[2023-02-03] VITALS (7 sets, daily range): BP systolic 119–138; BP diastolic 76–93; PULSE 90–125; RESP 16–18; TEMP 97.9–98.6; O2SAT 94–98
[2023-02-03] MEDS: heparin, porcine 5000 units/ml vial SQ SCH ×4 (00:12→23:49)
[2023-02-03] MEDS: normal saline 1000ml 1,000 ML IV SCH ×3 (00:42→20:40)
[2023-02-03] MEDS: HYDROmorphone 1 mg/ml syringe IV PRN ×3 (00:58→17:51)
[2023-02-03] MEDS: ondansetron/PF 4mg/2ml inj IV PRN (04:45)
[2023-02-03] MEDS: HYDROcodone/acetaminophen 10/325mg tab PO PRN (06:01)
[2023-02-03 07:31] LABS: BASOPHILS # (AUTO) 0.1 X10'3 (0-0.2); BASOPHILS % (AUTO) 0.4 % (0-1); EOSINOPHILS % (AUTO) 0.2 % (0-6); HEMOGLOBIN 10.9 g/dl (12.0-16.0); LYMPHOCYTES # (AUTO) 1.1 X10'3 (1.1-4.8); LYMPHOCYTES % (AUTO) 7.1 % (21-51); MEAN CORPUSCULAR HEMOGLOBIN 26.7 PG (27.0-31.0); MEAN CORPUSCULAR HGB CONC 32.2 g/dL (33.0-36.5); MEAN PLATELET VOLUME 8.8 FL (7.4-10.4); MONOCYTES # (AUTO) 1.6 X10'3 (0-0.9); MONOCYTES % (AUTO) 10.6 % (2-12); NEUTROPHILS # (AUTO) 12.1 X10'3 (1.8-7.7); NEUTROPHILS % (AUTO) 81.7 % (42-75); PLATELET COUNT 279 X10'3 (140-440); RED CELL DISTRIBUTION WIDTH 20.8 % (11.5-14.5); WHITE BLOOD COUNT 14.8 X10'3 (4.5-11.0)
[2023-02-03 07:44] LABS: ALANINE AMINOTRANSFERASE 27 U/L (12-78); ALBUMIN 2.7 G/DL (3.4-5.0); ALBUMIN/GLOBULIN RATIO 0.6 (1.1-1.5); ALKALINE PHOSPHATASE 102 IU/L (46-116); ANION GAP 9 (8-16); ASPARTATE AMINO TRANSFERASE 56 U/L (10-37); BILIRUBIN,TOTAL 1.8 MG/DL (0.1-1.0); BLOOD UREA NITROGEN 12 MG/DL (7-18); BUN/CREATININE RATIO 14.8 (10.0-20.0); CALCIUM 8.2 MG/DL (8.5-10.1); CHLORIDE 98 MMOL/L (99-107); CREATININE 0.81 MG/DL (0.40-0.90); GLUCOSE 100 MG/DL (70-104); POTASSIUM 3.6 MMOL/L (3.5-5.1); SODIUM 131 MMOL/L (135-145); TOTAL CARBON DIOXIDE 24.3 MMOL/L (24-32); TOTAL PROTEIN 7.1 G/DL (6.4-8.2); eCRCL 64 ML/MIN; eGFR 74 ML/MIN
[2023-02-03] MEDS: pantoprazole 40mg Tablet.DR PO SCH (08:15)
[2023-02-03] MEDS: docusate sod 100mg capsule PO SCH ×2 (08:15→21:20)
[2023-02-03] MEDS: metoclopramide 5 mg/ml inj IV PRN ×3 (09:08→23:40)
[2023-02-03] MEDS: HYDROcodone/acetaminophen 5mg/325mg tablet PO PRN ×2 (12:43→21:20)
[2023-02-03] MEDS: ondansetron 4mg rapidly disintigrating tab PO PRN (13:26)
[2023-02-03] MEDS: temazepam 15mg capsule PO PRN (21:23)
[2023-02-04] VITALS (10 sets, daily range): BP systolic 110–142; BP diastolic 76–100; PULSE 94–119; RESP 15–20; TEMP 96.7–98.4; O2SAT 95–100
[2023-02-04] MEDS: ondansetron/PF 4mg/2ml inj IV PRN (01:21)
[2023-02-04] MEDS: HYDROcodone/acetaminophen 10/325mg tab PO PRN ×5 (01:22→23:19)
[2023-02-04] MEDS: normal saline 1000ml 1,000 ML IV SCH ×2 (06:40→17:23)
[2023-02-04] MEDS: docusate sod 100mg capsule PO SCH ×2 (08:02→20:38)
[2023-02-04] MEDS: pantoprazole 40mg Tablet.DR PO SCH (08:02)
[2023-02-04] MEDS: heparin, porcine 5000 units/ml vial SQ SCH ×3 (08:02→23:30)
[2023-02-04] MEDS: metoclopramide 5 mg/ml inj IV PRN (08:23)
[2023-02-04] MEDS: temazepam 15mg capsule PO PRN (23:19)
[2023-02-05] MEDS: normal saline 1000ml 1,000 ML IV SCH ×3 (02:40→22:40)
[2023-02-05] MEDS: HYDROcodone/acetaminophen 10/325mg tab PO PRN ×4 (03:59→20:26)
[2023-02-05 06:00] VITALS: BP 148/93; PULSE 103; RESP 16; TEMP 97.7; O2SAT 97
[2023-02-05] MEDS: HYDROmorphone 1 mg/ml syringe IV PRN (07:11)
[2023-02-05] MEDS: docusate sod 100mg capsule PO SCH ×2 (07:18→20:25)
[2023-02-05] MEDS: pantoprazole 40mg Tablet.DR PO SCH (07:18)
[2023-02-05] MEDS: heparin, porcine 5000 units/ml vial SQ SCH ×3 (07:18→23:03)
[2023-02-05] MEDS: metoclopramide 5 mg/ml inj IV PRN (07:26)
[2023-02-05 08:00] VITALS: RESP 16; O2SAT 97
[2023-02-05] MEDS ORDERED: ONDA4TAB12 PO (08:42)
[2023-02-05] MEDS ORDERED: HYDR-3965 PO ×2 (08:42)
[2023-02-05 10:00] VITALS: BP 142/87; PULSE 100; RESP 18; TEMP 98.1; O2SAT 98
[2023-02-05 13:13] LABS: ALANINE AMINOTRANSFERASE 23 U/L (12-78); ALBUMIN 2.3 G/DL (3.4-5.0); ALBUMIN/GLOBULIN RATIO 0.5 (1.1-1.5); ALKALINE PHOSPHATASE 88 IU/L (46-116); ANION GAP 8 (8-16); ASPARTATE AMINO TRANSFERASE 26 U/L (10-37); BILIRUBIN,TOTAL 0.9 MG/DL (0.1-1.0); BLOOD UREA NITROGEN 6 MG/DL (7-18); BUN/CREATININE RATIO 8.5 (10.0-20.0); CALCIUM 7.8 MG/DL (8.5-10.1); CHLORIDE 98 MMOL/L (99-107); CREATININE 0.71 MG/DL (0.40-0.90); GLUCOSE 87 MG/DL (70-104); SODIUM 132 MMOL/L (135-145); TOTAL CARBON DIOXIDE 25.7 MMOL/L (24-32); TOTAL PROTEIN 6.6 G/DL (6.4-8.2); eCRCL 72 ML/MIN; eGFR 86 ML/MIN
[2023-02-05 13:18] LABS: POTASSIUM 2.6 MMOL/L (3.5-5.1)
[2023-02-05] MEDS ORDERED: potassium Cl 20 mEq SR tablet PO STA (13:34)
[2023-02-05] MEDS ORDERED: potassium Cl 20 mEq SR tablet PO ONE (17:35)
[2023-02-05 18:00] VITALS: BP 138/93; PULSE 90; RESP 20; TEMP 97.1; O2SAT 96
[2023-02-05] MEDS ORDERED: lactose-reduced food (Ensure High Protein) 237ml bottle PO SCH (18:00)
[2023-02-05 22:00] VITALS: BP 125/75; PULSE 95; RESP 16; TEMP 99.4; O2SAT 98
[2023-02-05] MEDS: temazepam 15mg capsule PO PRN (23:03)
[2023-02-05] MEDS ORDERED: potassium Cl 40MEQ/1/2NS 520ml 520 ML IV PRN (23:20)
[2023-02-05] MEDS ORDERED: potassium Cl 20 mEq SR tablet PO PRN (23:20)
[2023-02-05] MEDS ORDERED: magnesium 4gm in 100ml NS 100 ML IV PRN (23:20)
[2023-02-05] MEDS ORDERED: magnesium Cl slow-release 64mg tablet PO PRN (23:20)
[2023-02-05] MEDS ORDERED: magnesium 2GM in 50ml NS 50 ML IV PRN (23:20)
[2023-02-05] MEDS: potassium Cl 20 mEq SR tablet PO PRN (23:29)
[2023-02-05] MEDS: ondansetron 4mg rapidly disintigrating tab PO PRN (23:48)
[2023-02-06] MEDS: HYDROcodone/acetaminophen 10/325mg tab PO PRN ×6 (00:43→21:26)
[2023-02-06] MEDS: temazepam 15mg capsule PO PRN (00:46)
[2023-02-06] MEDS: normal saline 1000ml 1,000 ML IV SCH ×2 (02:16→19:05)
[2023-02-06] MEDS: potassium Cl 20 mEq SR tablet PO PRN (05:59)
[2023-02-06 06:00] VITALS: BP 118/84; PULSE 87; RESP 19; TEMP 97.8; O2SAT 91
[2023-02-06 06:27] LABS: BASOPHILS % (AUTO) 0.2 % (0-1); EOSINOPHILS # (AUTO) 0.5 X10'3 (0-0.9); EOSINOPHILS % (AUTO) 3.1 % (0-6); HEMATOCRIT 26.5 % (35.0-45.0); HEMOGLOBIN 8.4 g/dl (12.0-16.0); LYMPHOCYTES # (AUTO) 1.9 X10'3 (1.1-4.8); LYMPHOCYTES % (AUTO) 12.4 % (21-51); MEAN CORPUSCULAR HEMOGLOBIN 26.4 PG (27.0-31.0); MEAN CORPUSCULAR HGB CONC 31.7 g/dL (33.0-36.5); MEAN CORPUSCULAR VOLUME 83.1 FL (78-98); MEAN PLATELET VOLUME 8.3 FL (7.4-10.4); MONOCYTES # (AUTO) 1.6 X10'3 (0-0.9); MONOCYTES % (AUTO) 10.6 % (2-12); NEUTROPHILS # (AUTO) 11.3 X10'3 (1.8-7.7); NEUTROPHILS % (AUTO) 73.7 % (42-75); PLATELET COUNT 227 X10'3 (140-440); RED BLOOD COUNT 3.19 X10'6 (4.20-5.60); RED CELL DISTRIBUTION WIDTH 20.5 % (11.5-14.5); WHITE BLOOD COUNT 15.4 X10'3 (4.5-11.0)
[2023-02-06] MEDS: pantoprazole 40mg Tablet.DR PO SCH (07:28)
[2023-02-06] MEDS: docusate sod 100mg capsule PO SCH ×2 (07:28→21:23)
[2023-02-06] MEDS: heparin, porcine 5000 units/ml vial SQ SCH ×2 (07:30→16:00)
[2023-02-06 08:00] VITALS: RESP 19; O2SAT 91
[2023-02-06] MEDS: K and/or MAG REPLACEMENT MC SCH ×2 (08:00→19:06)
[2023-02-06 08:30] LABS: ANISOCYTOSIS 3+; ELLIPTOCYTES FEW; PLATELET ESTIMATE NORMAL; STOMATOCYTES FEW; TEAR DROP CELLS 1+
[2023-02-06 10:00] VITALS: BP 96/50; PULSE 90; RESP 16; TEMP 99.5; O2SAT 96
[2023-02-06 11:50] LABS: HEMATOCRIT 24.5 % (35.0-45.0); HEMOGLOBIN 7.9 g/dl (12.0-16.0); MEAN CORPUSCULAR HEMOGLOBIN 26.8 PG (27.0-31.0); MEAN CORPUSCULAR HGB CONC 32.4 g/dL (33.0-36.5); MEAN CORPUSCULAR VOLUME 82.7 FL (78-98); MEAN PLATELET VOLUME 7.8 FL (7.4-10.4); PLATELET COUNT 215 X10'3 (140-440); RED BLOOD COUNT 2.96 X10'6 (4.20-5.60); RED CELL DISTRIBUTION WIDTH 19.6 % (11.5-14.5); WHITE BLOOD COUNT 11.6 X10'3 (4.5-11.0)
[2023-02-06 12:08] LABS: ALANINE AMINOTRANSFERASE 18 U/L (12-78); ALBUMIN/GLOBULIN RATIO 0.5 (1.1-1.5); ALKALINE PHOSPHATASE 80 IU/L (46-116); ANION GAP 6 (8-16); ASPARTATE AMINO TRANSFERASE 18 U/L (10-37); BILIRUBIN,TOTAL 0.7 MG/DL (0.1-1.0); BLOOD UREA NITROGEN 4 MG/DL (7-18); BUN/CREATININE RATIO 6.8 (10.0-20.0); CALCIUM 7.5 MG/DL (8.5-10.1); CHLORIDE 100 MMOL/L (99-107); CREATININE 0.59 MG/DL (0.40-0.90); GLUCOSE 88 MG/DL (70-104); POTASSIUM 3.7 MMOL/L (3.5-5.1); SODIUM 130 MMOL/L (135-145); TOTAL CARBON DIOXIDE 23.8 MMOL/L (24-32); TOTAL PROTEIN 5.7 G/DL (6.4-8.2); eCRCL 87 ML/MIN; eGFR > 90 ML/MIN
[2023-02-06 18:00] VITALS: BP 135/82; PULSE 94; RESP 16; TEMP 98.4; O2SAT 100
[2023-02-06 20:00] VITALS: RESP 16; O2SAT 100
[2023-02-06] MEDS ORDERED: HYDROmorphone inj. 0.5 MG/0.5 ML DISP.SYRIN IV PRN (21:00)
[2023-02-06 22:00] VITALS: BP 135/87; PULSE 90; RESP 14; TEMP 100; O2SAT 100
[2023-02-07] VITALS (7 sets, daily range): BP systolic 106–126; BP diastolic 64–86; PULSE 87–97; RESP 16–20; TEMP 97.8–100.4; O2SAT 92–99
[2023-02-07] MEDS: HYDROcodone/acetaminophen 10/325mg tab PO PRN ×5 (01:31→20:18)
[2023-02-07] MEDS: normal saline 1000ml 1,000 ML IV SCH ×2 (04:40→20:17)
[2023-02-07 06:54] LABS: BASOPHILS % (AUTO) 0.4 % (0-1); EOSINOPHILS # (AUTO) 0.5 X10'3 (0-0.9); EOSINOPHILS % (AUTO) 4.3 % (0-6); HEMATOCRIT 27.8 % (35.0-45.0); LYMPHOCYTES # (AUTO) 1.7 X10'3 (1.1-4.8); LYMPHOCYTES % (AUTO) 14.1 % (21-51); MEAN CORPUSCULAR HEMOGLOBIN 27.1 PG (27.0-31.0); MEAN CORPUSCULAR HGB CONC 32.5 g/dL (33.0-36.5); MEAN CORPUSCULAR VOLUME 83.2 FL (78-98); MEAN PLATELET VOLUME 8.2 FL (7.4-10.4); MONOCYTES # (AUTO) 1.4 X10'3 (0-0.9); MONOCYTES % (AUTO) 11.9 % (2-12); NEUTROPHILS # (AUTO) 8.2 X10'3 (1.8-7.7); NEUTROPHILS % (AUTO) 69.3 % (42-75); PLATELET COUNT 252 X10'3 (140-440); RED BLOOD COUNT 3.35 X10'6 (4.20-5.60); RED CELL DISTRIBUTION WIDTH 20.2 % (11.5-14.5); WHITE BLOOD COUNT 11.8 X10'3 (4.5-11.0)
[2023-02-07 07:10] LABS: ALANINE AMINOTRANSFERASE 18 U/L (12-78); ALBUMIN 2.3 G/DL (3.4-5.0); ALBUMIN/GLOBULIN RATIO 0.5 (1.1-1.5); ALKALINE PHOSPHATASE 96 IU/L (46-116); ANION GAP 8 (8-16); ASPARTATE AMINO TRANSFERASE 20 U/L (10-37); BILIRUBIN,TOTAL 0.8 MG/DL (0.1-1.0); BLOOD UREA NITROGEN 5 MG/DL (7-18); CALCIUM 8.1 MG/DL (8.5-10.1); CHLORIDE 97 MMOL/L (99-107); CREATININE 0.71 MG/DL (0.40-0.90); GLUCOSE 83 MG/DL (70-104); POTASSIUM 3.7 MMOL/L (3.5-5.1); SODIUM 132 MMOL/L (135-145); TOTAL CARBON DIOXIDE 26.7 MMOL/L (24-32); TOTAL PROTEIN 6.5 G/DL (6.4-8.2); eCRCL 72 ML/MIN; eGFR 86 ML/MIN
[2023-02-07] MEDS: heparin, porcine 5000 units/ml vial SQ SCH ×3 (07:55→16:10)
[2023-02-07] MEDS: pantoprazole 40mg Tablet.DR PO SCH (07:55)
[2023-02-07] MEDS: docusate sod 100mg capsule PO SCH ×2 (07:55→20:17)
[2023-02-07] MEDS: K and/or MAG REPLACEMENT MC SCH ×2 (08:00→20:00)
[2023-02-07] MEDS ORDERED: iohexol 300mg/ml 100ml inj. ONE (09:39)
[2023-02-08] MEDS: HYDROcodone/acetaminophen 10/325mg tab PO PRN ×2 (00:18→08:51)
[2023-02-08] MEDS: normal saline 1000ml 1,000 ML IV SCH ×2 (00:40→10:40)
[2023-02-08 06:26] LABS: BASOPHILS # (AUTO) 0.1 X10'3 (0-0.2); BASOPHILS % (AUTO) 0.6 % (0-1); EOSINOPHILS # (AUTO) 0.5 X10'3 (0-0.9); EOSINOPHILS % (AUTO) 4.5 % (0-6); HEMATOCRIT 26.3 % (35.0-45.0); HEMOGLOBIN 8.3 g/dl (12.0-16.0); LYMPHOCYTES # (AUTO) 1.4 X10'3 (1.1-4.8); LYMPHOCYTES % (AUTO) 12.1 % (21-51); MEAN CORPUSCULAR HEMOGLOBIN 26.1 PG (27.0-31.0); MEAN CORPUSCULAR HGB CONC 31.6 g/dL (33.0-36.5); MEAN CORPUSCULAR VOLUME 82.8 FL (78-98); MEAN PLATELET VOLUME 8.1 FL (7.4-10.4); MONOCYTES # (AUTO) 1.3 X10'3 (0-0.9); MONOCYTES % (AUTO) 11.9 % (2-12); NEUTROPHILS # (AUTO) 7.9 X10'3 (1.8-7.7); NEUTROPHILS % (AUTO) 70.9 % (42-75); PLATELET COUNT 306 X10'3 (140-440); RED BLOOD COUNT 3.18 X10'6 (4.20-5.60); RED CELL DISTRIBUTION WIDTH 20.1 % (11.5-14.5); WHITE BLOOD COUNT 11.2 X10'3 (4.5-11.0)
[2023-02-08 07:00] VITALS: BP 120/81; PULSE 89; RESP 16; TEMP 97.8; O2SAT 100
[2023-02-08] MEDS: docusate sod 100mg capsule PO SCH (07:58)
[2023-02-08] MEDS: heparin, porcine 5000 units/ml vial SQ SCH ×2 (07:58)
[2023-02-08] MEDS: HYDROcodone/acetaminophen 5mg/325mg tablet PO PRN (07:58)
[2023-02-08] MEDS: pantoprazole 40mg Tablet.DR PO SCH (07:59)
[2023-02-08] MEDS: K and/or MAG REPLACEMENT MC SCH (08:00)
[2023-02-08 08:04] LABS: PLATELET ESTIMATE NORMAL
[2023-02-08 08:05] LABS: ANISOCYTOSIS 2+; ELLIPTOCYTES FEW; HYPOCHROMASIA 1+; POLYCHROMASIA 1+
[2023-02-08 09:14] VITALS: RESP 18; O2SAT 98
[2023-02-08 10:00] VITALS: BP 97/53; PULSE 96; RESP 15; TEMP 98.4; O2SAT 94
[2023-02-08] MEDS ORDERED: AMOX-580 PO (11:43)
[2023-02-08] MEDS ORDERED: HYDR-3965 PO (13:05)
== END 2023-02-08 14:35 | disposition home or self-care (01) | DRG 336 ==
LOC: ER 18:45 → ED HOLD 22:49 → UNDOADMIN 22:49 → ED HOLD 23:07 → ORTHO 4S 02-01 00:09 → UNDODISIN 02-03 15:14
PROVIDERS: ADMIT Family Medicine; ATTEND Internal Medicine
PROC: 0WPF0JZ Removal of Synthetic Substitute from Abdominal Wall, Open Approach (ICD-10-PCS; 2023-02-01)
PROC: 0DN80ZZ Release Small Intestine, Open Approach (ICD-10-PCS; principal; 2023-02-01 10:07)
PROC: BW211ZZ Computerized Tomography (CT Scan) of Abdomen and Pelvis using Low Osmolar Contrast (ICD-10-PCS; 2023-02-07)
DX: K56.51 Intestinal adhesions [bands], with partial obstruction (principal); E87.1 Hypo-osmolality and hyponatremia; N17.9 Acute kidney failure, unspecified; Z59.00 Homelessness unspecified; F41.9 Anxiety disorder, unspecified; G89.4 Chronic pain syndrome; I10 Essential (primary) hypertension; E03.8 Other specified hypothyroidism; K58.9 Irritable bowel syndrome, unspecified; F10.10 Alcohol abuse, uncomplicated; K21.9 Gastro-esophageal reflux disease without esophagitis; Z87.891 Personal history of nicotine dependence; Z83.3 Family history of diabetes mellitus; Z80.41 Family history of malignant neoplasm of ovary; Z98.84 Bariatric surgery status; Z90.49 Acquired absence of other specified parts of digestive tract; Z88.8 Allergy status to other drugs, medicaments and biological substances; Z79.899 Other long term (current) drug therapy; E66.9 Obesity, unspecified; Z68.35 Body mass index [BMI] 35.0-35.9, adult; E87.6 Hypokalemia
CPT/HCPCS: 36415; 71045; 74177; 80053; 80061; 81003; 81025; 83036; 83690; 83735; 83880; 84100; 84132; 84145; 84443; 85008; 85025; 85027; 85610; 85730; 87081; 88300; 88305; 93005; 99285; A4618; A6209; A6253; A6258; A6449; A7000; C1758; G0378; J0131; J0360; J1100; J1170; J1200; J1644; J2250; J2270; J2405; J2704; J2765; J3010; J3490; J7030; J7120; P9045; Q9967

== ENCOUNTER 2023-02-28 18:55 | Emergency (ER) | payer MEDICARE, MEDICAID, OTHER ==
[~2023-02-28] VITALS: Ht 157.5 cm; Wt 91.9 kg
[~2023-02-28 18:55] MED LIST changes: +AMOX-580 PO; +HYDR-3965 PO; -HYDR-3972 PO; -NITR100C6 PO; +ONDA4TAB12 PO
[2023-02-28 20:19] VITALS: BP 144/75; PULSE 104; RESP 16; TEMP 99.4; O2SAT 97
== END 2023-03-01 02:57 | disposition left against medical advice (07) ==
LOC: ER 18:55
DX: K91.89 Other postprocedural complications and disorders of digestive system (principal); R10.9 Unspecified abdominal pain; Z53.21 Procedure and treatment not carried out due to patient leaving prior to being seen by health care provider
CPT/HCPCS: 99281

== ENCOUNTER 2023-03-09 14:40 | Inpatient (IN) | payer MEDICARE, MEDICAID ==
[~2023-03-09] VITALS: Ht 157.5 cm; Wt 95.1 kg
[2023-03-09] MEDS ORDERED: normal saline 1000ML IV soln IV ONE (16:30)
[2023-03-09] MEDS ORDERED: piperacillin/tazo 3.375gm/50ml 50 ML IV ONE (16:30)
[2023-03-09] MEDS ORDERED: vancomycin/NS 1 GM ADD-VANTAGE 250 ML IV ONE (16:30)
[2023-03-09] MEDS ORDERED: iohexol 300mg/ml 100ml inj. ONE (16:34)
[2023-03-09 17:27] LABS: BILIRUBIN,URINE NEGATIVE (Neg); COLOR,URINE YELLOW (Yellow); GLUCOSE, URINE NEGATIVE (Neg); KETONES,URINE NEGATIVE (Neg); LEUKOCYTE ESTERASE ,URINE SMALL (Neg); NITRITES, URINE NEGATIVE (Neg); OCCULT BLOOD,URINE NEGATIVE (Neg); PROTEIN,URINE NEGATIVE (Neg)
[2023-03-09 17:40] LABS: CLARITY,URINE SLIGHTLY CLOUDY (Clear); UA COLLECTION TYPE CLN CATCH MIDSTREAM
[2023-03-09 17:41] LABS: SQUAMOUS EPITHELIAL CELL,UR MANY /LPF (FEW)
[2023-03-09 17:42] LABS: BACTERIA,URINE 1+ /HPF (Neg); RENAL CELLS, URINE FEW /HPF; TRANSITIONAL EPI CELLS,URINE FEW /HPF
[2023-03-09 18:08] LABS: BASOPHILS % (AUTO) 0.3 % (0-1); EOSINOPHILS # (AUTO) 0.4 X10'3 (0-0.9); EOSINOPHILS % (AUTO) 3.2 % (0-6); HEMATOCRIT 28.6 % (35.0-45.0); HEMOGLOBIN 8.9 g/dl (12.0-16.0); LYMPHOCYTES # (AUTO) 1.4 X10'3 (1.1-4.8); LYMPHOCYTES % (AUTO) 12.3 % (21-51); MEAN CORPUSCULAR HEMOGLOBIN 26.2 PG (27.0-31.0); MEAN CORPUSCULAR HGB CONC 31.3 g/dL (33.0-36.5); MEAN CORPUSCULAR VOLUME 83.7 FL (78-98); MEAN PLATELET VOLUME 7.4 FL (7.4-10.4); MONOCYTES # (AUTO) 1.5 X10'3 (0-0.9); MONOCYTES % (AUTO) 13.2 % (2-12); NEUTROPHILS # (AUTO) 7.9 X10'3 (1.8-7.7); PLATELET COUNT 371 X10'3 (140-440); RED BLOOD COUNT 3.41 X10'6 (4.20-5.60); RED CELL DISTRIBUTION WIDTH 17.7 % (11.5-14.5); WHITE BLOOD COUNT 11.1 X10'3 (4.5-11.0)
[2023-03-09 18:14] LABS: ALANINE AMINOTRANSFERASE 6 U/L (12-78); ALBUMIN 1.9 G/DL (3.4-5.0); ALBUMIN/GLOBULIN RATIO 0.5 (1.1-1.5); ALKALINE PHOSPHATASE 102 IU/L (46-116); ANION GAP 6 (8-16); ASPARTATE AMINO TRANSFERASE 9 U/L (10-37); BILIRUBIN,TOTAL 0.3 MG/DL (0.1-1.0); BLOOD UREA NITROGEN 19 MG/DL (7-18); BUN/CREATININE RATIO 18.6 (10.0-20.0); CALCIUM 8.1 MG/DL (8.5-10.1); CHLORIDE 100 MMOL/L (99-107); CREATININE 1.02 MG/DL (0.40-0.90); GLUCOSE 84 MG/DL (70-104); MAGNESIUM 1.6 MG/DL (1.5-2.4); SODIUM 130 MMOL/L (135-145); TOTAL CARBON DIOXIDE 23.9 MMOL/L (24-32); TOTAL PROTEIN 5.9 G/DL (6.4-8.2); eCRCL 50 ML/MIN; eGFR 57 ML/MIN
[2023-03-09] MEDS ORDERED: POTASSIUM BICARB 20meq eff tab 20 MEQ TABLET.EFF PO ONE (18:24)
[2023-03-09 19:45] LABS: URINE HCG NEGATIVE (NEG)
[2023-03-09] MEDS ORDERED: magnesium 4gm in 100ml NS 100 ML IV PRN (21:30)
[2023-03-09] MEDS ORDERED: potassium Cl 40MEQ/1/2NS 520ml 520 ML IV PRN (21:30)
[2023-03-09] MEDS ORDERED: ondansetron/PF 4mg/2ml inj IV PRN (21:30)
[2023-03-09] MEDS: normal saline 1000ml 1,000 ML IV SCH (21:30)
[2023-03-09] MEDS ORDERED: HYDROcodone/acetaminophen 5mg/325mg tablet PO PRN (21:30)
[2023-03-09] MEDS ORDERED: potassium Cl 20 mEq SR tablet PO PRN ×2 (21:30)
[2023-03-09] MEDS ORDERED: magnesium Cl slow-release 64mg tablet PO PRN (21:30)
[2023-03-09] MEDS ORDERED: diphenhydrAMINE 25mg capsule PO PRN (21:30)
[2023-03-09] MEDS ORDERED: morphine 2 MG/ML inj. syringe IV PRN (21:30)
[2023-03-09] MEDS ORDERED: magnesium 2GM in 50ml NS 50 ML IV PRN (21:30)
[2023-03-09] MEDS ORDERED: magnesium hydroxide 30ml (MOM) UD suspension PO PRN (21:30)
[2023-03-09] MEDS ORDERED: mag hydrox/Alum hydrox/simeth 30ml oral suspension PO PRN (21:30)
[2023-03-09] MEDS: HYDROcodone/acetaminophen 10/325mg tab PO PRN (22:47)
[2023-03-09] MEDS: morphine 2 MG/ML inj. syringe IV PRN (23:44)
[2023-03-10] VITALS (7 sets, daily range): BP systolic 87–122; BP diastolic 48–83; PULSE 82–107; RESP 14–20; TEMP 98–102.6; O2SAT 96–100
[2023-03-10] MEDS ORDERED: heparin, porcine 5000 units/ml vial SQ SCH
[2023-03-10] MEDS: piperacillin/tazo 4.5gm/100ml 100 ML IV SCH ×4 (00:45→23:16)
[2023-03-10] MEDS: morphine 2 MG/ML inj. syringe IV PRN ×3 (03:07→15:29)
[2023-03-10] MEDS: acetaminophen 325mg tablet PO PRN (05:08)
[2023-03-10] MEDS: LORazepam 1 MG tablet PO PRN ×2 (05:33→23:55)
[2023-03-10] MEDS: normal saline 1000ml 1,000 ML IV SCH ×2 (07:30→23:57)
[2023-03-10] MEDS: pantoprazole 40 MG vial IV SCH (07:50)
[2023-03-10] MEDS: heparin, porcine 5000 units/ml vial SQ SCH ×3 (07:51→23:16)
[2023-03-10] MEDS: K and/or MAG REPLACEMENT MC SCH ×2 (08:00→20:00)
[2023-03-10] MEDS ORDERED: docusate sod 100mg capsule PO SCH (08:00)
[2023-03-10 08:09] LABS: BASOPHILS # (AUTO) 0.1 X10'3 (0-0.2); BASOPHILS % (AUTO) 0.5 % (0-1); EOSINOPHILS # (AUTO) 0.4 X10'3 (0-0.9); EOSINOPHILS % (AUTO) 3.9 % (0-6); HEMATOCRIT 27.2 % (35.0-45.0); HEMOGLOBIN 8.8 g/dl (12.0-16.0); LYMPHOCYTES # (AUTO) 1.5 X10'3 (1.1-4.8); LYMPHOCYTES % (AUTO) 15.7 % (21-51); MEAN CORPUSCULAR HEMOGLOBIN 26.9 PG (27.0-31.0); MEAN CORPUSCULAR HGB CONC 32.3 g/dL (33.0-36.5); MEAN CORPUSCULAR VOLUME 83.2 FL (78-98); MEAN PLATELET VOLUME 7.5 FL (7.4-10.4); MONOCYTES # (AUTO) 1.3 X10'3 (0-0.9); MONOCYTES % (AUTO) 13.7 % (2-12); NEUTROPHILS # (AUTO) 6.2 X10'3 (1.8-7.7); NEUTROPHILS % (AUTO) 66.2 % (42-75); PLATELET COUNT 369 X10'3 (140-440); RED BLOOD COUNT 3.26 X10'6 (4.20-5.60); RED CELL DISTRIBUTION WIDTH 18.5 % (11.5-14.5); WHITE BLOOD COUNT 9.4 X10'3 (4.5-11.0)
[2023-03-10 08:19] LABS: ALANINE AMINOTRANSFERASE 7 U/L (12-78); ALBUMIN 1.7 G/DL (3.4-5.0); ALBUMIN/GLOBULIN RATIO 0.4 (1.1-1.5); ALKALINE PHOSPHATASE 91 IU/L (46-116); ANION GAP 8 (8-16); ASPARTATE AMINO TRANSFERASE 16 U/L (10-37); BILIRUBIN,TOTAL 0.3 MG/DL (0.1-1.0); BLOOD UREA NITROGEN 10 MG/DL (7-18); BUN/CREATININE RATIO 11.9 (10.0-20.0); CALCIUM 7.8 MG/DL (8.5-10.1); CHLORIDE 104 MMOL/L (99-107); CREATININE 0.84 MG/DL (0.40-0.90); GLUCOSE 135 MG/DL (70-104); LIPASE 8 U/L (16-77); MAGNESIUM 1.5 MG/DL (1.5-2.4); POTASSIUM 3.6 MMOL/L (3.5-5.1); SODIUM 134 MMOL/L (135-145); TOTAL CARBON DIOXIDE 21.6 MMOL/L (24-32); TOTAL PROTEIN 5.8 G/DL (6.4-8.2); eCRCL 61 ML/MIN; eGFR 71 ML/MIN
[2023-03-10 08:20] LABS: % IRON SATURATION 4 % (11-46); IRON 7 UG/DL (49-151); TOTAL IRON BINDING CAPACITY 177 UG/DL (259-388)
[2023-03-10] MEDS: HYDROcodone/acetaminophen 10/325mg tab PO PRN (19:32)
[2023-03-10] MEDS: Dakins solution (1/4 strength) 473ml solution TP SCH (20:00)
[2023-03-11] MEDS: HYDROcodone/acetaminophen 10/325mg tab PO PRN ×3 (01:29→17:12)
[2023-03-11 02:00] VITALS: BP 118/72; PULSE 85; RESP 18; TEMP 98.5; O2SAT 100
[2023-03-11 06:00] VITALS: BP 95/40; PULSE 93; RESP 23; TEMP 99.1; O2SAT 96
[2023-03-11] MEDS: morphine 2 MG/ML inj. syringe IV PRN ×2 (06:01→10:21)
[2023-03-11 08:23] LABS: BASOPHILS # (AUTO) 0.1 X10'3 (0-0.2); BASOPHILS % (AUTO) 0.8 % (0-1); EOSINOPHILS # (AUTO) 0.3 X10'3 (0-0.9); EOSINOPHILS % (AUTO) 4.7 % (0-6); HEMATOCRIT 26.6 % (35.0-45.0); HEMOGLOBIN 8.6 g/dl (12.0-16.0); LYMPHOCYTES # (AUTO) 2.3 X10'3 (1.1-4.8); LYMPHOCYTES % (AUTO) 31.5 % (21-51); MEAN CORPUSCULAR HGB CONC 32.3 g/dL (33.0-36.5); MEAN CORPUSCULAR VOLUME 83.7 FL (78-98); MEAN PLATELET VOLUME 7.4 FL (7.4-10.4); MONOCYTES % (AUTO) 13.8 % (2-12); NEUTROPHILS # (AUTO) 3.5 X10'3 (1.8-7.7); NEUTROPHILS % (AUTO) 49.2 % (42-75); PLATELET COUNT 400 X10'3 (140-440); RED BLOOD COUNT 3.17 X10'6 (4.20-5.60); RED CELL DISTRIBUTION WIDTH 18.3 % (11.5-14.5); WHITE BLOOD COUNT 7.2 X10'3 (4.5-11.0)
[2023-03-11 08:41] LABS: ALANINE AMINOTRANSFERASE 10 U/L (12-78); ALBUMIN 1.8 G/DL (3.4-5.0); ALBUMIN/GLOBULIN RATIO 0.4 (1.1-1.5); ALKALINE PHOSPHATASE 83 IU/L (46-116); ANION GAP 9 (8-16); ASPARTATE AMINO TRANSFERASE 14 U/L (10-37); BILIRUBIN,TOTAL 0.3 MG/DL (0.1-1.0); BLOOD UREA NITROGEN 6 MG/DL (7-18); BUN/CREATININE RATIO 8.5 (10.0-20.0); CALCIUM 8.2 MG/DL (8.5-10.1); CHLORIDE 104 MMOL/L (99-107); CREATININE 0.71 MG/DL (0.40-0.90); GLUCOSE 77 MG/DL (70-104); MAGNESIUM 1.6 MG/DL (1.5-2.4); SODIUM 136 MMOL/L (135-145); TOTAL CARBON DIOXIDE 23.5 MMOL/L (24-32); eCRCL 72 ML/MIN; eGFR 86 ML/MIN
[2023-03-11] MEDS: pantoprazole 40 MG vial IV SCH (08:54)
[2023-03-11] MEDS: normal saline 1000ml 1,000 ML IV SCH (08:54)
[2023-03-11] MEDS: Dakins solution (1/4 strength) 473ml solution TP SCH (08:55)
[2023-03-11] MEDS: piperacillin/tazo 4.5gm/100ml 100 ML IV SCH ×2 (08:55→16:00)
[2023-03-11] MEDS: heparin, porcine 5000 units/ml vial SQ SCH ×2 (08:57→16:00)
[2023-03-11] MEDS: K and/or MAG REPLACEMENT MC SCH (08:59)
[2023-03-11] MEDS: acetaminophen 325mg tablet PO PRN ×2 (10:30→17:11)
[2023-03-11 11:00] VITALS: BP 87/50; PULSE 83; RESP 19; TEMP 97.4; O2SAT 94
[2023-03-11 17:12] VITALS: RESP 14
[2023-03-11] MEDS ORDERED: AMOX-419 PO (17:37)
[2023-03-12] MEDS ORDERED: pantoprazole 40mg Tablet.DR PO SCH (07:30)
== END 2023-03-11 19:45 | disposition home health service (06) | DRG 919 ==
LOC: ER 14:41 → ED HOLD 21:34 → PCU 3S 03-10 01:40
PROVIDERS: ADMIT Family Medicine; ATTEND Internal Medicine
PROC: BW211ZZ Computerized Tomography (CT Scan) of Abdomen and Pelvis using Low Osmolar Contrast (ICD-10-PCS; principal; 2023-03-09)
PROC: 2W13X6Z Compression of Abdominal Wall using Pressure Dressing (ICD-10-PCS; 2023-03-09)
DX: T81.30XA Disruption of wound, unspecified, initial encounter (principal); A41.9 Sepsis, unspecified organism; N17.0 Acute kidney failure with tubular necrosis; E87.1 Hypo-osmolality and hyponatremia; N39.0 Urinary tract infection, site not specified; N12 Tubulo-interstitial nephritis, not specified as acute or chronic; Z59.00 Homelessness unspecified; N17.9 Acute kidney failure, unspecified; L03.311 Cellulitis of abdominal wall; F41.9 Anxiety disorder, unspecified; I95.9 Hypotension, unspecified; D50.9 Iron deficiency anemia, unspecified; F15.90 Other stimulant use, unspecified, uncomplicated; G89.29 Other chronic pain; K21.9 Gastro-esophageal reflux disease without esophagitis; E86.0 Dehydration; Y83.8 Other surgical procedures as the cause of abnormal reaction of the patient, or of later complication, without mention of misadventure at the time of the procedure; Y92.89 Other specified places as the place of occurrence of the external cause; Z98.84 Bariatric surgery status; Z79.899 Other long term (current) drug therapy; Z90.49 Acquired absence of other specified parts of digestive tract; Z87.891 Personal history of nicotine dependence; Z88.8 Allergy status to other drugs, medicaments and biological substances; Z83.3 Family history of diabetes mellitus
CPT/HCPCS: 11042; 36415; 71045; 74177; 80053; 81001; 81025; 83540; 83550; 83605; 83690; 83735; 84145; 85025; 87040; 87070; 87075; 87077; 87081; 87186; 93005; 97597; 99285; A6212; A6446; A6449; C9113; G0378; J1644; J2270; J2405; J2543; J3370; J3490; J7030; J7040; Q9967

== ENCOUNTER 2023-03-20 15:43 | Emergency (ER) | payer MEDICARE, MEDICAID, OTHER ==
[~2023-03-20] VITALS: Ht 157.5 cm; Wt 100.0 kg
[~2023-03-20 15:43] MED LIST changes: -AMOX-580 PO; -HYDR-3965 PO
[2023-03-20 15:58] VITALS: BP 130/99; PULSE 110; RESP 22; TEMP 98.2; O2SAT 97
[2023-03-20 18:13] LABS: BASOPHILS # (AUTO) 0.1 X10'3 (0-0.2); BASOPHILS % (AUTO) 0.9 % (0-1); MONOCYTES # (AUTO) 0.3 X10'3 (0-0.9); WHITE BLOOD COUNT 7.7 X10'3 (4.5-11.0)
[2023-03-20 18:16] LABS: EOSINOPHILS # (AUTO) 0.2 X10'3 (0-0.9); HEMATOCRIT 36.7 % (35.0-45.0); HEMOGLOBIN 11.7 g/dl (12.0-16.0); LYMPHOCYTES # (AUTO) 1.6 X10'3 (1.1-4.8); LYMPHOCYTES % (AUTO) 20.7 % (21-51); MEAN CORPUSCULAR HEMOGLOBIN 26.8 PG (27.0-31.0); MEAN CORPUSCULAR VOLUME 83.8 FL (78-98); MEAN PLATELET VOLUME 6.5 FL (7.4-10.4); MONOCYTES % (AUTO) 4.1 % (2-12); NEUTROPHILS # (AUTO) 5.6 X10'3 (1.8-7.7); NEUTROPHILS % (AUTO) 72.3 % (42-75); PLATELET COUNT 822 X10'3 (140-440); RED BLOOD COUNT 4.38 X10'6 (4.20-5.60); RED CELL DISTRIBUTION WIDTH 18.5 % (11.5-14.5)
[2023-03-20] MEDS ORDERED: LORazepam 1 MG tablet PO ONE (18:25)
[2023-03-20 18:29] LABS: ALANINE AMINOTRANSFERASE 16 U/L (12-78); ALBUMIN 3.1 G/DL (3.4-5.0); ALBUMIN/GLOBULIN RATIO 0.6 (1.1-1.5); ALKALINE PHOSPHATASE 136 IU/L (46-116); ANION GAP 11 (8-16); ASPARTATE AMINO TRANSFERASE 16 U/L (10-37); BILIRUBIN,TOTAL 0.5 MG/DL (0.1-1.0); BLOOD UREA NITROGEN 11 MG/DL (7-18); BUN/CREATININE RATIO 14.3 (10.0-20.0); CALCIUM 9.2 MG/DL (8.5-10.1); CHLORIDE 101 MMOL/L (99-107); CREATININE 0.77 MG/DL (0.40-0.90); GLUCOSE 108 MG/DL (70-104); SODIUM 135 MMOL/L (135-145); TOTAL PROTEIN 8.6 G/DL (6.4-8.2); eCRCL 67 ML/MIN; eGFR 78 ML/MIN
== END 2023-03-20 18:49 | disposition home or self-care (01) ==
LOC: ER 15:44
DX: F41.9 Anxiety disorder, unspecified (principal); G89.29 Other chronic pain; Z88.5 Allergy status to narcotic agent; Z79.899 Other long term (current) drug therapy
CPT/HCPCS: 36415; 71045; 80053; 82948; 83605; 84145; 84484; 85025; 87040; 93005; 99285

== ENCOUNTER 2024-09-06 10:41 | Inpatient (IN) | payer MEDICAID, MEDICARE ==
[~2024-09-06] VITALS: Ht 157.5 cm; Wt 111.4 kg
[~2024-09-06 10:41] MED LIST changes: +ONDA-243 PO; -ONDA4TAB12 PO
--- NOTE | 2024-09-06 11:32 | RADIOLOGY REPORT ---
CLINICAL INDICATION: KNEE PAIN TECHNIQUE: 2 radiographic views of the right knee were obtained. Comparison: None FINDINGS/IMPRESSION: Displaced and comminuted fracture of the distal right femur. Status post right knee arthroplasty.
--- NOTE | 2024-09-06 11:32 | RADIOLOGY REPORT ---
EXAM: DI CHEST,SINGLE VIEW Indication: pain Technique: Single frontal view of the chest was obtained Comparison: DI CHEST,SINGLE VIEW on DOS: 03/20/23, DI CHEST,SINGLE VIEW on DOS: 03/09/23, DI CHEST,SING LE VIEW on DOS: 02/01/23 FINDINGS: Lines and Tubes: None Lungs: No focal consolidation. Pleura: No effusion. No pneumothorax. Cardiomediastinal contours: Unremarkable Atherosclerotic vascular calcifications of the thoracic aort a are noted. Bones: No acute osseous abnormality. IMPRESSION: No acute cardiopulmonary disease.
--- NOTE | 2024-09-06 11:47 | Physician Documentation ---
History of Present Illness ~ Chief Complaint: Knee Pain Stated Complaint: R LEG PAIN Time Seen by MD: 11:29 Primary Medical Doctor: WALESKA TRINH This 54-year-old female presents to the ED via EMS for right knee pain she states last night she fell into a [place] while intoxicated and injured her post surgical knee replacement leg. Says that while she was in the [place] someone pulled her out and gave her a blanket and a pillow. She slept the rest of the evening until an ambulance was called for a lift assist. Patient was splinted by EMS with CSM intact.denies head injury. Unable to bear any weight Day of Onset: Sep 06, 2024 Tetanus witin 5 years: No Medication Reconciliation Allergies: Coded Allergies: ziprasidone HCl (Verified Allergy, Severe, LOCK JAW AND THROAT CLOSING, 03/09/23) ziprasidone mesylate (Verified Allergy, Severe, LOCK JAW AND THROAT CLOSING, 03/09/23) Scheduled Amlodipine* (Norvasc*), 5 MG PO DAILY, (Reported) Cyclobenzaprine* (Cyclobenzaprine*), 1 TAB PO HS Gabapentin (Neurontin), 1 CAP PO TID, (Reported) Omeprazole (Omeprazole), 1 CAP PO DAILY, (Reported) Scheduled PRN Acetaminophen (Tylenol Extra Strength), 1 TAB PO TID PRN PRN for pain or fever, (Reported) Hydroxyzine Pamoate (Hydroxyzine Pamoate), 1 CAP PO Q8H PRN for anxiety Ibuprofen (Ibuprofen), 1 TAB PO Q8H PRN for pain, (Reported) ONDANSETRON ODT 4mg tablet (Ondansetron Odt), 1 TAB PO Q6H PRN for nausea/vomiting Past Medical History Past Medical History: *GI/HEPATOBILIARY*, Bowel Obstruction, Inflammatory Bowel Dz, Hernia, UTI, Chronic Pain, Anxiety Past Surgical History: cholecystectomy, gastric bypass, orthopedic surgeries, other Other Past Surgical History: hernia repair Patient History: FH: diabetes mellitus FATHER MOTHER FH: hypertension FATHER MOTHER FH: ovarian cancer MOTHER Alcohol Use: Sober Drug Use: other Lives In: Homeless Occupation: unemployed Review of Systems All Other Systems at this time: Reviewed and Negative ROS As stated above in the HPI, otherwise all systems are reviewed and negative. Physical Exam Vital Signs: Temperature: 97.9, Source: Oral, Heart Rate: 86, Respiratory Rate: 18, BP: 109/78, Pulse Oximetry: 100, Weight: 181.600 Oxygen Flow Rate: 0 Physical Exam General: Alert, no apparent distress. Respiratory: Lungs clear, no respiratory distress. Cardiovascular: Regular rate and rhythm, no murmurs. Extremities: Right knee and upper thigh notable for swelling and deformity, CSM is intact, pedal pulses are easily palpable, unable to complete ROM due to pain Neurologic: Oriented x4. Psychiatric: Normal mood and affect. Progress Results/Orders Results/Orders Orders - LOLY DAVIS PAINT PROCESS ENGINEER Ct Lower Extremity (09/06/24 12:25) Vl Mellisa (09/06/24 ) Ortho Orders (09/06/24 12:07) Page Hospitalist (09/06/24 ) * Npo After Midnight * (09/06/24 13:08) Completed Orders - LOLY DAVIS PAINT PROCESS ENGINEER Ct Lower Extremity (09/06/24 12:25) Vl Mellisa (09/06/24 ) Normal Saline 1000ml (0.9% Sodium Chlori (09/06/24 12:00) Fentanyl/Pf (Fentanyl 0.05 Mg/Ml Syringe (09/06/24 12:00) Cbc/Diff (09/06/24 12:02) BMP (09/06/24 12:02) Fentanyl/Pf (Fentanyl 0.05 Mg/Ml Syringe (09/06/24 13:45) Medications Received in ER Medications (Trade) Dose Ordered Sig/Jian Route PRN Reason Start Time Stop Time Status Last Admin Dose Admin (0.9% sodium chloride (NS) 1000ml IV soln) 1,000 ml ONCE ONCE IVB 09/06/24 12:00 09/06/24 12:16 DC 09/06/24 12:14 1,000 ML (fentaNYL 0.05 MG/ML syringe) 100 mcg ONCE ONCE IV 09/06/24 12:00 09/06/24 12:16 DC 09/06/24 12:14 100 MCG (fentaNYL 0.05 MG/ML syringe) 100 mcg ONCE ONCE IV 09/06/24 13:45 09/06/24 13:46 DC 09/06/24 14:09 100 MCG (Dilaudid inj.) 1 mg Q4H PRN IV SEVERE PAIN 7-10 09/06/24 14:25 09/06/24 15:46 1 MG Sodium Chloride 1,000 ml @ 100 mls/hr Q10H IV 09/06/24 14:25 09/06/24 15:46 100 MLS/HR (K-DUR tablet) 20 meq Q4H PRN PO Potassium 3.1-3.4 09/06/24 14:25 09/09/24 14:24 09/06/24 17:50 20 MEQ Vital Signs 09/06/24 09/06/24 09/06/24 10:44 12:14 14:09 Temp 97.9 Pulse 86 Resp 18 18 18 B/P (MAP) 109/78 Pulse Ox 100 O2 Flow Rate 0 Laboratory Tests Test 09/06/24 12:23 White Blood Count 10.3 Red Blood Count 3.92 L Hemoglobin 9.8 L Hematocrit 29.7 L Mean Corpuscular Volume 75.7 L Mean Corpuscular Hemoglobin 25.0 L Mean Corpuscular Hemoglobin Concent 33.0 Red Cell Distribution Width 20.7 H Platelet Count 254 Mean Platelet Volume 8.4 Neutrophils (%) (Auto) 80.9 H Lymphocytes (%) (Auto) 11.4 L Monocytes (%) (Auto) 6.8 Eosinophils (%) (Auto) 0.3 Basophils (%) (Auto) 0.6 Neutrophils # (Auto) 8.3 H Lymphocytes # (Auto) 1.2 Monocytes # (Auto) 0.7 Eosinophils # (Auto) 0.0 Basophils # (Auto) 0.1 CBC Comment Platelet Estimate Normal Red Blood Cell Morphology Perf Basophilic Stippling Anisocytosis 3+ Microcytosis 1+ Tear Drop Cells Few Elliptocytes Few Sodium Level 134 L Potassium Level 3.1 L Chloride Level 101 Carbon Dioxide Level 22.9 L Anion Gap 10 Blood Urea Nitrogen 9 Creatinine 0.71 Estimated GFR/1.73 m2 85 BUN/Creatinine Ratio 12.7 Glucose Level 90 Calcium Level 8.1 L Albumin 3.2 L Chemistry Comments Medical Decision Making Findings spoke Dr. Dugan , the on-call orthopedic surgeon. He is recommending Bowling's traction pain management knee immobilizer and NPO at midnight for likely surgery in the morning This is due to a comminuted displaced femur fracture just proximal to the previous right knee replacement CT ordered to eval for coronal FX MELLISA ordered to eval for microvascular injury Knee Diff Dx:Considerations: Include: Abrasion, Arthritis, Contusion, DJD, Fracture-femur, Fracture-fibula, Fracture-patella, Fracture-tibia, Gout, Hematoma, Laceration, Meniscus injury, Neurovascular injury, Open fracture, Rheumatoid arthritis, Septic, Sprain, Sprain-MCL, Sprain-LCL, Sprain-ACL, Sprain-PCL, Other Departure Disposition: ADMITTED INPATIENT Impression: Primary Impression: Femur fracture, right Condition: Stable Discharge Instructions: Distal Femur Fracture Treated With Immobilization Referrals: NO PRIMARY CARE PROVIDER (PCP) Education Educated: Patient Educated regarding: diagnosis Signature Scribe Signature: g Attestation: Scribed for Loly Davis Stock Handler Floorperson by Loly Scanlon NP . 09/06/24 18:00 LOLY DAVIS NP Sep 06, 2024 11:47
[2024-09-06] MEDS ORDERED: fentaNYL/PF 50MCG/1 ML 2ML syringe IV ONE (12:00)
[2024-09-06] MEDS: normal saline 1000ML IV soln IVB ONE (12:14)
[2024-09-06] MEDS: fentaNYL/PF 50MCG/1 ML 2ML syringe IV ONE ×2 (12:14→14:09)
[2024-09-06 12:55] LABS: MEAN PLATELET VOLUME 8.4 FL (7.4-10.4); RED CELL DISTRIBUTION WIDTH 20.7 % (11.5-14.5)
[2024-09-06 13:05] LABS: CREATININE 0.71 MG/DL (0.40-0.90); TOTAL CARBON DIOXIDE 22.9 MMOL/L (24-32); eCRCL 71 ML/MIN; eGFR 85 ML/MIN
[2024-09-06 13:25] LABS: PLATELET ESTIMATE NORMAL
[2024-09-06 13:26] LABS: ELLIPTOCYTES FEW
--- NOTE | 2024-09-06 13:30 | RADIOLOGY REPORT ---
CT CT LOWER EXTREMITY INDICATION: fracture right femur EXAM DATE: 09/06/2024 12:26 PM COMPARISON: None RADIATION DOSE: CTDIvol: 16 mGy, DLP: 871 mGy*cm PROCEDURE: Helical CT images were obtained of the right lower extremity without intravenous contrast. Sagittal and coronal reconstructions are provided. ADDITIONAL IMAGES: None FINDINGS: BONES: Comminuted, displaced distal femur fracture, above the knee arthroplasty that appears intact. JOINT SPACES: Maintained. Small knee joint effusion. SOFT TISSUES: within normal limits. VESSELS: unremarkable. IMPRESSION: Comminuted, displaced distal femur fracture, above the knee arthroplasty that appears intact.
[2024-09-06] MEDS ORDERED: ondansetron/PF 4mg/2ml inj IV PRN (14:25)
[2024-09-06] MEDS ORDERED: mag hydrox/Alum hydrox/simeth 30ml oral suspension PO PRN (14:25)
[2024-09-06] MEDS ORDERED: magnesium sulf-water 4G/100mL 100 ML IV PRN (14:25)
[2024-09-06] MEDS ORDERED: HYDROmorphone/PF 0.2 MG/ML SYRINGE IV PRN (14:25)
[2024-09-06] MEDS ORDERED: HYDROcodone/acetaminophen 5mg/325mg tablet PO PRN (14:25)
[2024-09-06] MEDS ORDERED: magnesium sulf-water 2g/50mL 50 ML IV PRN (14:25)
[2024-09-06] MEDS ORDERED: potassium Cl 40MEQ/1/2NS 520ml 520 ML IV PRN (14:25)
[2024-09-06] MEDS ORDERED: potassium Cl 20 mEq SR tablet PO PRN (14:25)
--- NOTE | 2024-09-06 14:47 | VASCULAR REPORT ---
EXAM: VASC VL CHRISTIANA ANKLE/BRACHIAL INDEX CLINICAL HISTORY: Pain Peripheral vascular disease COMPARISON: None TECHNIQUE: Bilateral systolic ankle and brachial pressures are obtained, with ankle pulse volume waveforms and i ndices. FINDINGS: Pressures: Right Left Brachial IV mmHg 117 mmHg PT 158 mmHg na mmHg DP 160 mmHg na mmHg CHRISTIANA: Right Left 1.37 na Pulse volume waveforms: multiphasic IMPRESSION: Right CHRISTIANA 1.37 which is within normal limits but may represent underlying medial arterial calcificati ons. 1.0-1.4: normal 0.91-0.99 borderline 0.9: abnormal (i.e. PAD) 0.4-0.9: [id number]-is-[id number] PAD <0.4: suggestive of severe PAD
[2024-09-06] MEDS: normal saline 1000ml 1,000 ML IV SCH (15:46)
[2024-09-06] MEDS: HYDROmorphone inj. 0.5 MG/0.5 ML DISP.SYRIN IV PRN (15:46)
[2024-09-06] MEDS ORDERED: AMLO2.5T2 PO (16:07)
[2024-09-06 17:00] VITALS: BP 124/80; PULSE 91; RESP 16; TEMP 98.5; O2SAT 97
[2024-09-06] MEDS: potassium Cl 20 mEq SR tablet PO PRN (17:50)
[2024-09-06 18:30] VITALS: BP 124/80; PULSE 90; RESP 16; TEMP 98.5; O2SAT 97
[2024-09-06] MEDS: pantoprazole 40mg Tablet.DR PO PRN (18:58)
[2024-09-06] MEDS: docusate sod 100mg capsule PO SCH (19:36)
[2024-09-06] MEDS: K and/or MAG REPLACEMENT MC SCH (19:37)
[2024-09-06] MEDS: enoxaparin 40mg/0.4ml syringe SQ SCH (19:37)
--- NOTE | 2024-09-06 21:40 | HISTORY AND PHYSICAL ---
History & Physical Providers to CC ~ History of Present Illness Reason for Admit\Complaint: Right distal femur fracture History of Present Illness This is a 54-year-old female who has been sober for several months and has recently got in the has a couple of drinks yesterday with her friends at the [employer] and he ended up falling and landing on her right knee and sustained a comminuted distal right femur fracture - ED SHOVE UP Chidi Davis spoke with Dr. Dugan orthopedic surgeon who is anticipating taking the patient to the OR tomorrow. The patient is experiencing a significant amount of pain. Allergies: Coded Allergies: ziprasidone HCl (Verified Allergy, Severe, LOCK JAW AND THROAT CLOSING, 03/09/23) ziprasidone mesylate (Verified Allergy, Severe, LOCK JAW AND THROAT CLOSING, 03/09/23) Home Medications Home Medications Active Ondansetron Odt (Ondansetron HCl) 4 Mg Tab.rapdis 1 Tab PO Q6H PRN 4 Days Cyclobenzaprine* (Cyclobenzaprine HCl) 10 Mg Tablet 1 Tab PO HS 30 Days Hydroxyzine Pamoate 50 Mg Capsule 1 Cap PO Q8H PRN 30 Days Reported Norvasc* (Amlodipine Besylate) 2.5 Mg Tablet 5 Mg PO DAILY 30 Days Tylenol Extra Strength (Acetaminophen) 500 Mg Tablet 1 Tab PO TID PRN PRN 3 Days Ibuprofen 600 Mg Tablet 1 Tab PO Q8H PRN 30 Days Neurontin (Gabapentin) 300 Mg Capsule 1 Cap PO TID Omeprazole 20 Mg Capsule. 1 Cap PO DAILY Past Medical History Past Medical History High-grade bowel obstruction GERD Gastric bypass Anxiety IBS Past Surgical History Surgical History Comment Exploratory laparotomy, complex lysis of major adhesions, excision of abdominal mesh by Dr. Curry on 02/02/2023. Cholecystectomy Gastric bypass Right ankle surgery with revision Tubal ligation Right knee surgery Family History Family History: FH: diabetes mellitus FATHER MOTHER FH: hypertension FATHER MOTHER FH: ovarian cancer MOTHER sister Past Social History Social History Comment Lifelong nonsmoker. Sober for several months recently started drinking alcohol again, history of smoking methamphetamines quit 20 months ago, full code status ROS ROS Except for positives in the HPI the rest of the 14 point review systems is negative Exam Vitals: Vital Signs Date Time Temp Pulse Resp B/P (MAP) Pulse Ox O2 Delivery O2 Flow Rate FiO2 09/06/24 18:30 98.5 90 16 124/80 (95) 97 Room Air 09/06/24 16:00 0 General: Gen. No acute distress alert and oriented 4 Lungs clear to ascultation bilaterally, no wheezes rales or rhonchi appreciated Heart normal sinus rhythm no murmurs rubs or clicks noted Abdomen soft nontender bowel sounds are normoactive Lower extremities no clubbing cyanosis, nor edema appreciated bilaterally, knee immobilizer on the right Diagnostic Data Last Recorded Lab Results: 09/06/24 1223 09/06/24 1223 Advance Care Planning Advanced Care plannin - 30 Minutes Problems: (1) Femur fracture, right Status: Acute Additional Plan # right distal femur fracture- NPO after midnight Dr. Dugan orthopedic surgeon is taking the patient to OR tomorrow # hypertension Continue amlodipine # microcytic anemia Iron studies Follow up with daily CBC # hypokalemia Potassium replacement protocol # DVT prophylaxis SQ Lovenox I spent a total of 17 minutes on reviewing various resuscitative measures/ ACP with the patient at the time of admission. The patient has decided on full code status Date of Service: Sep 06, 2024 Billing Provider: LENA HARTLEY DO Common Visit Codes: 75055-GJULAET INP/OBS CARE (HIGH) Secondary Visit Codes: [id number] CARE PLAN 30 MINUTES LENA HARTLEY DO Sep 06, 2024 21:40
[2024-09-06] MEDS: HYDROcodone/acetaminophen 10/325mg tab PO PRN (21:57)
[2024-09-06 22:00] VITALS: BP 140/93; PULSE 92; RESP 15; TEMP 97.6; O2SAT 96
[2024-09-07] VITALS (23 sets, daily range): BP systolic 90–149; BP diastolic 56–91; PULSE 79–96; RESP 13–18; TEMP 97.6–100.1; O2SAT 94–100
[2024-09-07 04:57] LABS: MEAN PLATELET VOLUME 8.1 FL (7.4-10.4); RED CELL DISTRIBUTION WIDTH 20.4 % (11.5-14.5)
[2024-09-07 05:23] LABS: CREATININE 0.83 MG/DL (0.40-0.90); TOTAL CARBON DIOXIDE 22.7 MMOL/L (24-32); eCRCL 61 ML/MIN; eGFR 71 ML/MIN
[2024-09-07 05:28] LABS: PLATELET ESTIMATE NORMAL
[2024-09-07 05:30] LABS: ELLIPTOCYTES FEW
[2024-09-07] MEDS ORDERED: vancomycin 1,000mg inj ONE ×2 (05:48→08:57)
--- NOTE | 2024-09-07 06:05 | ELECTROCARDIOGRAPH REPORT ---
[facility] Test Date: 2024-09-07 Test Time: 06:02:22 Pat Name: BAILEE JUNE Department: [facility]S Patient ID: [facility]-[id number] Room: ORTHO [facility] A Gender: F Senior Technical Manager: : 1970 Requested By: ADENIKE VALE Order Number: [id number] Reading MD: Dr. Jluis Mendoza Measurements Intervals [place] Rate: 85 P: 73 VT: 180 QRS: 60 QRSD: 92 T: 61 QT: 391 QTc: 465 Interpretive Statements Sinus rhythm Borderline low voltage, extremity leads Electronically Signed On 09-07-2024 7:18:[address] Jluis Mendoza Please click the below link to view image of tracing.
[2024-09-07] MEDS: pantoprazole 40mg Tablet.DR PO SCH (07:30)
[2024-09-07] MEDS ORDERED: fentaNYL /PF 50mcg/ml 5ml ampule ONE (08:30)
[2024-09-07] MEDS ORDERED: midazolam 1 mg/ML 2ml injection ONE ×2 (08:30→08:33)
[2024-09-07] MEDS ORDERED: propofol inj 20 ML IV ONE (08:47)
[2024-09-07] MEDS ORDERED: rocuronium 10mg/ml inj IV ONE (08:47)
[2024-09-07] MEDS ORDERED: dexamethasone sod phosphate 4mg/ml inj. ONE (09:11)
[2024-09-07] MEDS ORDERED: labetalol 20mg/4ml (5mg/ml) syringe IV PRN (10:25)
[2024-09-07] MEDS: ringers solution, lacted 1,000 ML IV SCH (10:25)
[2024-09-07] MEDS ORDERED: hydrALAZINE 20mg/ml inj. IV PRN (10:25)
[2024-09-07] MEDS ORDERED: morphine 4 MG/ML inj SYRINge IV PRN (10:25)
[2024-09-07] MEDS ORDERED: acetaminophen 1,000mg/100ml IV 100 ML IV PRN (10:25)
[2024-09-07] MEDS ORDERED: ondansetron/PF 4mg/2ml inj IV PRN (10:25)
[2024-09-07] MEDS ORDERED: HYDROmorphone/PF 0.2 MG/ML SYRINGE IV PRN ×2 (10:25)
[2024-09-07] MEDS ORDERED: ROPIVAcaine 0.5% (5mg/ml) 30ml vial ONE (10:26)
--- NOTE | 2024-09-07 11:00 | CONSULTATION REPORT ---
History of Present Illness Providers to CC ~ Reason for Admit\Admit Dx: Right distal femur fracture Refering MD: WALESKA GONZALEZ History of Present Illness 54-year-old female who suffered a [place] [employer] [place] and fracturing her right distal femur this is a periprosthetic femur fracture with significant displacement she was unable to ambulate was brought to this facility by ambulance yesterday I was requested to consult with regards to treatment for her right lower extremity. Past medical/surgical history significant for a total knee arthroplasty year and a half ago. Alcohol abuse. Review of systems: Patient denies any other injury other than her right leg denies any loss of consciousness upper extremity or left lower extremity injuries. Patient did present with some neck pain that is resolving per the patient. Examination: Alert and oriented female lying supine in bed moving her upper extremities and left lower extremity without hesitation unable to move her right lower extremity due to pain. As external rotation contracture or deformity of her right leg. Distal pulses are intact and capillary refill is intact. This patient is morbidly obese imbalance the exam was markedly limited X-rays: These reveal a supracondylar distal femur fracture with comminution and then moderate to significant degree of osteopenia Assessment: Unstable periprosthetic distal femur fracture right leg. Plan: This patient would benefit from stabilization and an attempt to do a retrograde nailing of the femur to minimize extensive dissection of the the potential complications of that this would also allow for her early mobilization if we are successful. Patient has opted for this procedure. She understood the indications risks benefits limitations and potential complications of the procedure. I obtained informed consent signed her right leg. She will be placed in the surgery schedule as soon as of the extra available scheduled time is coordinating with fluoroscopic assistance. Thank you for the consultation Allergies: Coded Allergies: ziprasidone HCl (Verified Allergy, Severe, LOCK JAW AND THROAT CLOSING, 03/09/23) ziprasidone mesylate (Verified Allergy, Severe, LOCK JAW AND THROAT CLOSING, 03/09/23) Home Medications Home Medications Active Ondansetron Odt (Ondansetron HCl) 4 Mg Tab.rapdis 1 Tab PO Q6H PRN 4 Days Cyclobenzaprine* (Cyclobenzaprine HCl) 10 Mg Tablet 1 Tab PO HS 30 Days Hydroxyzine Pamoate 50 Mg Capsule 1 Cap PO Q8H PRN 30 Days Reported Norvasc* (Amlodipine Besylate) 2.5 Mg Tablet 5 Mg PO DAILY 30 Days Tylenol Extra Strength (Acetaminophen) 500 Mg Tablet 1 Tab PO TID PRN PRN 3 Days Ibuprofen 600 Mg Tablet 1 Tab PO Q8H PRN 30 Days Neurontin (Gabapentin) 300 Mg Capsule 1 Cap PO TID Omeprazole 20 Mg Capsule. 1 Cap PO DAILY Past Family History Family History: FH: diabetes mellitus FATHER MOTHER FH: hypertension FATHER MOTHER FH: ovarian cancer MOTHER sister Physical Exam Last Vital Signs Recorded: Temperature: 97.6, Source: Oral, Heart Rate: 87, Respiratory Rate: 16, BP: 130/85, Pulse Oximetry: 94, Weight: 111.360 Results Diagram Lab Result Diagram: 09/07/24 0437 09/07/24 0437 DARREL GARCIA MD Sep 07, 2024 11:00
--- NOTE | 2024-09-07 11:08 | OPERATIVE REPORT ---
Operative Report Providers to ~ Date of Procedure: Sep 07, 2024 Pre-Operative Diagnosis: Right distal femur/knee fracture periprosthetic Post-Operative Diagnosis SAME as PRE-Op Procedure Performed Retrograde nailing with stabilization of the proximal and distal locking screws Surgeon: Darrel Garcia MD Program Technician None Anesthesiologist: Boby Goel Type of Anesthesia: General, Other (Femoral nerve block) Findings: Unstable supracondylar periprosthetic right distal femur with significant osteopenia Complications None Prosthetics\Implants used: Raz retrograde nail 10 mm in diameter by 20 cm long. Distal locking screw 5 mm x 80 cm long oblique distal locking screws 5 mm x 57.5 mm long x2. Proximal locking cortical screws 5 mm x 27.5 mm x 2 Estimated Blood Loss: Less than 150 cc Specimen Removed: None Description of Procedure: Patient was taken to the operating room and given general anesthetic placed in a supine position with a flat table for C-arm fluoroscopy her left leg was placed in an SCD device her right leg was prepped and draped usual sterile orthopaedic fashion no tourniquet was used. After a prepped and draped with then completed C-arm fluoroscopy was brought into the room with the operative personnel being protected by lead apron. Visualization of the fracture pattern fracture revealed that was compatible with retrograde nailing. A knee bolster was used to keep the knee in flexion during the approach. The approaches of the anterior incision following inferior half of her total knee arthroplasty bleeding of the patellar tendon down it is settling during his a small osteotomy of the distal pole of the patella to allow for entry of the guidewire and starting Reamer. There was a moderate degree of patella baja with the knee in flexion and guidewire was placed into the knee under fluoroscopic guidance allowing it to pass into the proximal diaphyseal portion of the femur drill guide starting drill guide was placed in into the knee allowing for positioning of the definitive intramedullary nail. Intramedullary nail was placed in the knee with external alignment guide in place ensuring that the distal tip was not going to compromise her range of motion or impinge on the polyethylene insert distal locking screws were placed in the knee 1st and once that was stabilize his adjust her varus valgus and internal external rotation parameters to within normal limits. Locking of the proximal cortical screws was accomplished stabilize in his fracture very nicely which was stable under fluoroscopic evaluation copious antibiotic irrigation was used. While 2 L of an IrriSept antiseptic solution was used to irrigate the knee after evacuation of the hemarthrosis. Closure of the patellar tendon was accomplished with 2-0 Vicryl running suture subcuticular closure was accomplished with 2-0 Vicryl of the anterior incision all the balance of the incisions including the anterior incision was closed with skin blanche sterile dressings were applied a knee immobilizer was applied to support the repair. Anesthesiologist performed the femoral nerve block at this point in time after that was completed she was [facility] in stable condition there were no apparent perioperative complications Counts repoted as correct: Yes DARREL GARCIA MD Sep 07, 2024 11:08
--- NOTE | 2024-09-07 11:11 | OPERATIVE REPORT ---
Operative Report Providers to CC ~ Pre-Operative Diagnosis: Right distal femur/knee fracture periprosthetic Post-Operative Diagnosis SAME as PRE-Op DARREL GARCIA MD Sep 07, 2024 11:11
[2024-09-07 16:49] LABS: MEAN PLATELET VOLUME 8.6 FL (7.4-10.4); RED CELL DISTRIBUTION WIDTH 20.6 % (11.5-14.5)
--- NOTE | 2024-09-07 17:39 | PROGRESS NOTE ---
Daily Progress Note Providers to CC ~ Antibiotic Timeout Antibiotic Ordered?: No Subjective The patient went to surgery earlier today in his status post rodding of the right distal femur. The patient did drop her hemoglobin postop to 6.7 and 1 unit of packed red blood cells as ordered to be transfused Objective Vital Signs Date Time Temp Pulse Resp B/P (MAP) Pulse Ox O2 Delivery O2 Flow Rate FiO2 09/07/24 15:47 15 09/07/24 15:00 89 122/75 (91) 99 09/07/24 14:00 Room Air 09/07/24 12:00 99.1 09/07/24 11:40 0.0 Result Diagram: 09/07/24 1612 09/07/24 0437 Gen. No acute distress alert and oriented 4 Lungs clear to ascultation bilaterally, no wheezes rales or rhonchi appreciated Heart normal sinus rhythm no murmurs rubs or clicks noted Abdomen soft nontender bowel sounds are normoactive Lower extremities no clubbing cyanosis, nor edema appreciated on the left, knee immobilizer is present on the right Problem\Assessment\Plan Problems/Diagnosis: (1) Femur fracture, right # right distal femur fracture- with prior right total knee arthroplasty Status post rodding with Dr. Davon Dugan orthopedic surgeon this morning PT- may require rehab # hypertension Continue amlodipine # microcytic anemia Iron studies in am Hb dropped to 6.7 from 9.8 at admission Transfuse 1 unit of packed red blood cells I consented the patient this morning and discussed the risks and benefits of a blood transfusion Follow up with daily CBC # hypokalemia Potassium replacement protocol # DVT prophylaxis SQ Lovenox Date of Service: Sep 07, 2024 Billing Provider: LENA HARTLEY DO Common Visit Codes: [id number] INP/OBS CARE(HIGH) Problem Qualifiers (1) Femur fracture, right: Qualified Codes: S72.491A - Other fracture of lower end of right femur, initial encounter for closed fracture LENA HARTLEY DO Sep 07, 2024 17:39
[2024-09-08] VITALS (7 sets, daily range): BP systolic 91–115; BP diastolic 63–77; PULSE 77–91; RESP 14–19; TEMP 97.9–98.4; O2SAT 91–98
[2024-09-08 05:31] LABS: MEAN PLATELET VOLUME 8.6 FL (7.4-10.4); RED CELL DISTRIBUTION WIDTH 20.1 % (11.5-14.5)
[2024-09-08 05:42] LABS: % IRON SATURATION 14 % (11-46)
[2024-09-08 05:46] LABS: CREATININE 0.71 MG/DL (0.40-0.90); TOTAL CARBON DIOXIDE 23.2 MMOL/L (24-32); eCRCL 71 ML/MIN; eGFR 85 ML/MIN
[2024-09-08 09:14] LABS: HBSAG SCREEN Negative (Negative); HEP B CORE AB, IGM Negative (Negative); HEP B CORE AB, TOT Positive (Negative)
[2024-09-08] MEDS: iron sucrose complex injection 300 MG in normal saline 250ml IV soln 250 ML IV SCH (10:31)
--- NOTE | 2024-09-08 13:38 | PROGRESS NOTE ---
Daily Progress Note Providers to CC ~ Antibiotic Timeout Antibiotic Ordered?: No Subjective cc-pain is unbearble, pt tried to sit me, norco not working. ros- neg for 10 systems reviewed Objective Vital Signs Date Time Temp Pulse Resp B/P (MAP) Pulse Ox O2 Delivery O2 Flow Rate FiO2 09/08/24 06:00 97.9 77 18 104/70 (81) 95 Room Air 09/07/24 11:40 0.0 Result Diagram: 09/08/2445609/08/24 045 pt crying in pain, HEENT-NC/NT HEAD PERRLA EOMI CVS 1 & 2 HS POS RRR RESP. CTA BNO R/R/C/W ABD- SOFT BS POS NT/ND EXT-NO C/C/E RT LOWER EXT WRAPPED Problem\Assessment\Plan Problems/Diagnosis: (1) Femur fracture, right # right distal femur fracture- with prior right total knee arthroplasty Status post rodding with Dr. Davon Dugan orthopedic surgeon this morning PT- may require rehab # PAIN-NOT WELL CONTROLLED PERCOCET PO X ONE NOW # hypertension Continue amlodipine # microcytic anemia Iron studies in am Hb dropped to 6.7 from 9.8 at admission NOW 7.2/. CON'T TO MONITOR S/P Transfuse 1 unit of packed red blood cells CK MICRO/MACRO PANEL Follow up with daily CBC # hypokalemia-RESOLVED Potassium replacement protocol # DVT prophylaxis SQ Lovenox Date of Service: Sep 08, 2024 Billing Provider: REN NICHOLSON MD Common Visit Codes: [id number] INP/OBS CARE(HIGH) Problem Qualifiers (1) Femur fracture, right: Qualified Codes: S72.491A - Other fracture of lower end of right femur, initial encounter for closed fracture REN NICHOLSON MD Sep 08, 2024 13:38
[2024-09-09] VITALS (9 sets, daily range): BP systolic 94–111; BP diastolic 48–73; PULSE 61–100; RESP 12–17; TEMP 98–98.6; O2SAT 96–100
[2024-09-09 05:26] LABS: MEAN PLATELET VOLUME 8.3 FL (7.4-10.4); RED CELL DISTRIBUTION WIDTH 20.6 % (11.5-14.5)
[2024-09-09 05:50] LABS: CREATININE 0.58 MG/DL (0.40-0.90); TOTAL CARBON DIOXIDE 26.2 MMOL/L (24-32); eCRCL 87 ML/MIN; eGFR > 90 ML/MIN
[2024-09-09 10:53] LABS: APTT 28 SECONDS (22-32); INR 1.0 INR
[2024-09-09 15:22] LABS: MEAN PLATELET VOLUME 8.5 FL (7.4-10.4); RED CELL DISTRIBUTION WIDTH 19.5 % (11.5-14.5)
[2024-09-09 16:03] LABS: BANDS% (MANUAL) 2.0 % (0-10); EOSINOPHILS % (MANUAL) 2.0 % (0-6); LYMPHOCYTES % (MANUAL) 29.0 % (21-51); METAMYLEOCYTES% (MANUAL) 1.0 % (0-0); MONOCYTES % (MANUAL) 4.0 % (2-12); NEUTROPHILS % (MANUAL) 62.0 % (42-75); PLATELET ESTIMATE NORMAL
[2024-09-09 16:05] LABS: ELLIPTOCYTES FEW
--- NOTE | 2024-09-09 17:17 | ELECTROCARDIOGRAPH REPORT ---
[facility] Test Date: 2024-09-09 Test Time: 17:15:18 Pat Name: BAILEE JUNE Department: [facility] 4S Patient ID: [facility]-[id number] Room: [place] [address] A Gender: F Home Health Nurse: : 1970 Requested By: REN NICHOLSON Order Number: [id number] Reading MD: Dr. JEAN Looney Measurements Intervals [place] Rate: 85 P: 60 FL: 175 QRS: 48 QRSD: 87 T: 52 QT: 356 QTc: 424 Interpretive Statements Sinus rhythm Low voltage, precordial leads Electronically Signed On 09-09-2024 17:32:[address] JEAN Looney Please click the below link to view image of tracing.
--- NOTE | 2024-09-09 17:40 | PROGRESS NOTE- Residence ---
Progress Note - Resident Providers to CC Resident Creating Document: ECHO QUIROS RES ~ Antibiotic Timeout Antibiotic Ordered?: No Subjective Patient seen and examined at the bedside. She is still complains of right lower extremity pain, controlled with Dilaudid. No external visible bleeding. No other complaints at this moment. Objective Vital Signs Date Time Temp Pulse Resp B/P (MAP) Pulse Ox O2 Delivery O2 Flow Rate FiO2 09/09/24 16:18 16 09/09/24 10:20 98.5 100 109/68 09/09/24 08:00 Room Air 09/08/24 22:00 95 09/07/24 11:40 0.0 Result Diagram: 09/09/24 1449 09/09/24 0510 HEENT-NC/NT HEAD PERRLA EOMI CVS 1 & 2 HS POS RRR RESP. CTA BNO R/R/C/W ABD- SOFT BS POS NT/ND EXT-NO C/C/E RT LOWER EXT WRAPPED Coagulation Studies Laboratory Tests Test 09/09/24 10:25 Prothrombin Time 10.3 SECONDS (9.0-12.0) INR International Normalized Ratio 1.0 INR Activated Partial Thromboplast Time 28 SECONDS (22-32) Coagulation Comments Plan Plan # right distal femur fracture- with prior right total knee arthroplasty Status post rodding with Dr. Davon Dugan orthopedic surgeon PT- may require rehab 09/09/2024 Patient had two blood units transfusion New CBC ordered for tomorrow Dr. Dugan also following the patient # postsurgical pain Percocet 10/325 mg Dilaudid p.r.n. # hypertension Continue amlodipine # microcytic anemia Iron studies in am Hb dropped to 6.7 from 9.8 at admission NOW 7.2. CON'T TO MONITOR S/P Transfuse 2 unit of packed red blood cells CK MICRO/MACRO PANEL Follow up with daily CBC # hypokalemia-RESOLVED Potassium replacement protocol # DVT prophylaxis SQ Lovenox Patient is seen and examined with resident at bedside we will hold discharge till a.m. if H&H stable plan to DC to SNF in a.m. Date of Service: Sep 09, 2024 Billing Provider: REN NICHOLSON MD Common Visit Codes: [id number] INP/OBS CARE(HIGH) ECHO QUIROS RES Sep 09, 2024 17:40 REN NICHOLSON MD Sep 10, 2024 11:51
[2024-09-09] MEDS ORDERED: magnesium Cl slow-release 64mg tablet PO PRN (18:00)
[2024-09-09] MEDS ORDERED: potassium Cl 40MEQ/1/2NS 520ml 520 ML IV PRN (18:00)
[2024-09-09] MEDS ORDERED: magnesium sulf-water 2g/50mL 50 ML IV PRN (18:00)
[2024-09-09] MEDS ORDERED: magnesium sulf-water 4G/100mL 100 ML IV PRN (18:00)
[2024-09-09] MEDS ORDERED: potassium Cl 20 mEq SR tablet PO PRN (18:00)
[2024-09-09] MEDS: K and/or MAG REPLACEMENT MC SCH (20:00)
[2024-09-09] MEDS: potassium Cl 20 mEq SR tablet PO PRN (20:21)
[2024-09-10 05:56] LABS: MEAN PLATELET VOLUME 8.4 FL (7.4-10.4); RED CELL DISTRIBUTION WIDTH 19.5 % (11.5-14.5)
[2024-09-10 06:00] VITALS: BP 107/62; PULSE 82; RESP 16; TEMP 97.7; O2SAT 97
[2024-09-10 06:18] LABS: CREATININE 0.68 MG/DL (0.40-0.90); TOTAL CARBON DIOXIDE 26.1 MMOL/L (24-32); eCRCL 74 ML/MIN; eGFR 90 ML/MIN
[2024-09-10 07:16] LABS: BANDS% (MANUAL) 3.0 % (0-10); EOSINOPHILS % (MANUAL) 2.0 % (0-6); LYMPHOCYTES % (MANUAL) 26.0 % (21-51); MONOCYTES % (MANUAL) 6.0 % (2-12); NEUTROPHILS % (MANUAL) 63.0 % (42-75); NUCLEATED RED BLOOD CELLS 3 /100WBC (0-0); PLATELET ESTIMATE NORMAL
[2024-09-10] MEDS: magnesium hydroxide 30ml (MOM) UD suspension PO PRN (09:22)
[2024-09-10 10:00] VITALS: BP 109/71; PULSE 88; RESP 16; TEMP 97.1; O2SAT 95
--- NOTE | 2024-09-10 15:32 | PROGRESS NOTE- Residence ---
Progress Note - Resident Providers to CC Resident Creating Document: NATE ZARATE RES ~ Antibiotic Timeout Antibiotic Ordered?: No Subjective Patient seen and examined at the bedside. She is still complains of right lower extremity pain, controlled with pain medications. She is able to tolerate the diet well. Did not have a bowel movement yet but is able to pass bowel gas. Objective Vital Signs Date Time Temp Pulse Resp B/P (MAP) Pulse Ox O2 Delivery O2 Flow Rate FiO2 09/10/24 10:33 16 09/10/24 10:00 97.1 88 109/71 (84) 95 Room Air 09/07/24 11:40 0.0 Result Diagram: 09/10/24 0501 09/10/24 0501 General: Awake and Alert, no acute distress. HEENT: Conjunctiva pink, Sclera clear, Mucus Membranes dry Neck: Supple without masses and tenderness. Resp: Unlabored. Equal breath sounds bilaterally. Heart: Regular rhythm, normal S1 and S2, no rub, murmur or gallop. Abdomen: Soft , no tenderness no organomegaly. Normal bowel sounds x4 quadrant normoactive. No guarding or rigidity. Extremities: Normal ROM, no swelling, nontender. No cyanosis,clubbing or edema. Right knee immobilizer in place. SHANK SKINNER: No gross motor or sensory abnormalities. Skin: Warm and Dry. Coagulation Studies Laboratory Tests Test 09/09/24 10:25 Prothrombin Time 10.3 SECONDS (9.0-12.0) INR International Normalized Ratio 1.0 INR Activated Partial Thromboplast Time 28 SECONDS (22-32) Coagulation Comments Plan Plan Assessment This is a 54-year-old female with a history of right knee arthroplasty who came to the ER after a fall sustaining distal right femur fracture, Dr. Dugan was consulted, retrograde nailing with stabilization of major proximal and distal locking screws of right femur were done on 09/08/2024. Post procedure patient is doing well, his pain but is controlled with pain medications. She is able to tolerate the diet well. Did not have a bowel movement yet but he is able to pass bowel gas. Likely discharge to rehab tomorrow. Plan Right comminuted displaced distal femur fracture s/p retrograde nailing with stabilization of major proximal and distal femur locking on 09/08/2024 History of right knee arthroplasty Fracture is secondary to mechanical fall Status post rodding with Dr. Davon Dugan orthopedic surgeon Pain management-Percocet q.6 p.r.n. Patient is able to tolerate diet well. Did not have a bowel movement yet, is able to past medical his and bowel sounds present, milk of Mag daily p.r.n. Physical therapy recommended post acute care. Microcytic anemia Hemoglobin 6.7 at admission, received 2 units of blood transfusion Patient has a history of gastric bypass in 2006 Hemoglobin today is 7.4 Iron studies showed low iron, normal TIBC, normal % saturation, normal ferritin Received 3 units of IV Venofer. Will be discharged on oral iron supplementation Reactive leukocytosis Likely secondary to surgery. WBC count is high but trending down Hypertension Blood Pressure is in the normal range Continued patient's home medication amlodipine 5 mg hypokalemia-resolved Potassium replacement protocol Code status: Full code DVT prophylaxis SQ Lovenox GI prophylaxis: Pantoprazole Diet: Regular diet Lines/tubes: Peripheral IV line Disposition: Discharge to rehab tomorrow Nate Zarate M.D PGY2 Saw and examined the patient with resident at bedside etiology of the anemia is not clear yet workup is under progress Date of Service: Sep 10, 2024 Billing Provider: REN NICHOLSON MD Common Visit Codes: [id number] INP/OBS CARE(HIGH) NATE ZARATE, RES Sep 10, 2024 15:32 REN NICHOLSON MD Sep 11, 2024 17:40
[2024-09-10 18:00] VITALS: BP 144/86; PULSE 84; RESP 16; TEMP 97.9; O2SAT 100
[2024-09-10] MEDS: diazepam 2mg tablet PO PRN (19:52)
[2024-09-10 20:00] VITALS: RESP 15; O2SAT 96
[2024-09-10 22:00] VITALS: BP 98/52; PULSE 93; RESP 15; TEMP 97.7; O2SAT 96
[2024-09-11] VITALS (8 sets, daily range): BP systolic 97–129; BP diastolic 67–83; PULSE 85–98; RESP 14–18; TEMP 98.1–98.6; O2SAT 94–99
[2024-09-11] MEDS: ketorolac trometh 30MG/ML vial 30 MG/ML VIAL IV ONE (00:42)
[2024-09-11 05:55] LABS: MEAN PLATELET VOLUME 8.0 FL (7.4-10.4); RED CELL DISTRIBUTION WIDTH 20.2 % (11.5-14.5)
[2024-09-11 06:19] LABS: BANDS% (MANUAL) 1.0 % (0-10); LYMPHOCYTES % (MANUAL) 16.0 % (21-51); METAMYLEOCYTES% (MANUAL) 3.0 % (0-0); MONOCYTES % (MANUAL) 9.0 % (2-12); NEUTROPHILS % (MANUAL) 71.0 % (42-75); NUCLEATED RED BLOOD CELLS 3 /100WBC (0-0); PLATELET ESTIMATE NORMAL
[2024-09-11 06:23] LABS: CREATININE 0.76 MG/DL (0.40-0.90); TOTAL CARBON DIOXIDE 29.7 MMOL/L (24-32); eCRCL 66 ML/MIN; eGFR 79 ML/MIN
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
[2024-09-11] MEDS: morphine ER 15mg tablet PO SCH (13:29)
--- NOTE | 2024-09-11 13:42 | PROGRESS NOTE- Residence ---
Progress Note - Resident Providers to CC Resident Creating Document: ECHO QUIROS RES ~ Antibiotic Timeout Antibiotic Ordered?: No Subjective Patient seen and examined at the bedside. She is still complains of right lower extremity pain, not controlled with p.o. medications. She is able to tolerate the diet well. She had to have a new blood transfusion today. Objective Vital Signs Date Time Temp Pulse Resp B/P (MAP) Pulse Ox O2 Delivery O2 Flow Rate FiO2 09/11/24 10:23 98.1 88 16 113/69 09/11/24 10:00 99 Room Air 09/07/24 11:40 0.0 Result Diagram: 09/11/2444409/11/24444 HEENT-NC/NT HEAD PERRLA EOMI CVS 1 & 2 HS POS RRR RESP. CTA BNO R/R/C/W ABD- SOFT BS POS NT/ND EXT-NO C/C/E RT LOWER EXT WRAPPED Right lower extremity has trace plus one edema I did not unwrap the bandages Coagulation Studies Laboratory Tests Test 09/09/24 10:25 Prothrombin Time 10.3 SECONDS (9.0-12.0) INR International Normalized Ratio 1.0 INR Activated Partial Thromboplast Time 28 SECONDS (22-32) Coagulation Comments Plan Plan Assessment This is a 54-year-old female with a history of right knee arthroplasty who came to the ER after a fall sustaining distal right femur fracture, Dr. Dugan was consulted, retrograde nailing with stabilization of major proximal and distal locking screws of right femur were done on 09/08/2024. Post procedure patient is doing well, his pain but is controlled with pain medications. She is able to tolerate the diet well. Did not have a bowel movement yet but he is able to pass bowel gas. Likely discharge to rehab after pain control. Plan Right comminuted displaced distal femur fracture s/p retrograde nailing with stabilization of major proximal and distal femur locking on 09/08/2024 History of right knee arthroplasty Fracture is secondary to mechanical fall Status post rodding with Dr. Davon Dugan orthopedic surgeon Pain management-Percocet q.6 p.r.n. Patient is able to tolerate diet well. Did not have a bowel movement yet, is able to past medical his and bowel sounds present, milk of Mag daily p.r.n. Physical therapy recommended post acute care. 09/11/2024 Continue physical therapy Morphine 15 mg p.o. b.i.d. Percocet p.r.n. Microcytic anemia Hemoglobin 6.7 at admission, received 2 units of blood transfusion Patient has a history of gastric bypass in 2006 Iron studies showed low iron, normal TIBC, normal % saturation, normal ferritin Received 3 units of IV Venofer. Will be discharged on oral iron supplementation 09/11/2024 Ordered 1 unit of blood today Monitor daily Reactive leukocytosis Likely secondary to surgery. WBC count is high but trending down Hypertension Blood Pressure is in the normal range Continued patient's home medication amlodipine 5 mg hypokalemia-resolved Potassium replacement protocol Code status: Full code DVT prophylaxis SQ Lovenox GI prophylaxis: Pantoprazole Diet: Regular diet Lines/tubes: Peripheral IV line We will hold off on the discharge at this time As an after thought to look for other causes of anemia I ordered a CT of the right lower extremity status post ORIF. It does show a large hematoma with pseudoaneurysm I have spoken to Dr. Good who agrees to see the patient. In the interim continue transfusions p.r.n. Date of Service: Sep 11, 2024 Billing Provider: REN NICHOLSON MD Common Visit Codes: [id number] INP/OBS CARE(HIGH) ECHO QUIROS, RES Sep 11, 2024 13:42 REN NICHOLSON MD Sep 11, 2024 17:40
[2024-09-11] MEDS ORDERED: iohexol 300mg/ml 100ml inj. ONE (13:57)
[2024-09-11 15:20] LABS: MEAN PLATELET VOLUME 8.3 FL (7.4-10.4); RED CELL DISTRIBUTION WIDTH 18.9 % (11.5-14.5)
--- NOTE | 2024-09-11 15:56 | RADIOLOGY REPORT ---
CLINICAL INDICATION: swelling TECHNIQUE: CT of the right lower extremity was performed using 90 mL Omnipaque 300 intravenous contr ast. Sagittal and coronal reformatted images are provided. COMPARISON: CT CT LOWER EXTREMITY on DOS: 09/06/24 CT Dose: CTDI volume is 17.1 mGy. Dose-length product is 719.3 mGy*cm FINDINGS: There is open reduction internal fixation of a severely comminuted distal femoral fracture with intra medullary nail and screws. There are several displaced fracture fragments. There is a total knee repl acement which appears to be well aligned. There is narrowing of the joint space which may suggest wea r of the polyethylene liner. There is significant streak artifact from the hardware which limits eval uation. Resurfaced patella shows lateral patellar tilt. There is high attenuating fluid centered within the vastus muscles consistent with intramuscular ramon teresa and swelling. Multilobular area of high attenuation in the vastus intermedius muscle measures 4. 6 x 4.5 cm suggestive of multiple pseudoaneurysms. This may be arising from a branch of the distal f emoral artery. Diffuse subcutaneous edema. IMPRESSION: 1. Status post open reduction internal fixation of comminuted distal femoral fracture with multiple d isplaced fracture fragments as described. 2. Intramuscular hematoma and swelling with multiple pseudoaneurysms in the vastus intermedius muscle . They may be arising from a branch of the distal femoral artery. Catheter based angiography suggest ed for further evaluation. Please note that compartment syndrome is a clinical diagnosis and should b e excluded on clinical basis. 3. Status post knee replacement. Possible polyethylene liner wear. All CT scans at this medical facility are performed using dose modulation techniques as appropriate t o a performed exam including the following: Automated exposure control was utilized; adjustment of th e MA and/or KV according to patient size; and use of iterative reconstruction technique.
--- NOTE | 2024-09-11 16:37 | RADIOLOGY REPORT ---
C-ARM FLUOROSCOPY: PROCEDURE: ORIF right femur FLUOROSCOPY TIME: 126.2 seconds DAP: 30.95 mgy FINDINGS: Spot intraoperative C arm radiographs demonstrating right femur ORIF. IMPRESSION: Please refer to surgical report for detailed findings.
--- NOTE | 2024-09-11 21:36 | PROGRESS NOTE ---
Progress Note ID Providers to CC ~ Progress Note Progress Note: pt seen-note dictated-pt needs transfer to a facility with IR for angiography/embolization/possible covered stent-discussed with nurse GRACIE ROSS MD Sep 11, 2024 21:36
--- NOTE | 2024-09-11 22:02 | CONSULTATION ---
DATE OF CONSULTATION: 09/11/2024 DICTATING PHYSICIAN: Mark Good MD REASON FOR CONSULTATION: Evaluation of abnormal CT. HISTORY OF PRESENT ILLNESS: The patient is a 54-year-old female with a history of gastric bypass, anxiety, and IBS who fell sustaining a distal femur fracture on 09/06. The patient underwent surgical repair per Dr. Dugan on 09/07, and developed evidence of postoperative anemia and lower extremity swelling. CTA done this afternoon revealed pseudoaneurysms coming off a branch of the distal SFA. Surgical evaluation is now requested. On further questioning, she complains of leg pain. She denies any progressive swelling. She is able to move her right foot. PAST MEDICAL HISTORY: Notable for GERD, gastric bypass, anxiety, IBS. PAST SURGICAL HISTORY: Notable for previous laparotomy, lysis of adhesions, cholecystectomy, gastric bypass, an ankle procedure, tubal ligation, right knee procedure. HOME MEDICATIONS: Include Norvasc, Tylenol, Motrin, Neurontin, Prilosec. ALLERGIES: ZOFRAN, CYCLOBENZAPRINE, HYDROXYZINE. SOCIAL HISTORY: No tobacco use. She does use alcohol. REVIEW OF SYSTEMS: See H and P. PHYSICAL EXAMINATION: GENERAL: Well-nourished female, in no distress. VITAL SIGNS: Unremarkable. HEART: Regular rate and rhythm. LUNGS: Clear to auscultation. ABDOMEN: Benign. EXTREMITIES: Right lower extremity is swollen. There are good pulses in the dorsalis pedis with good motor and sensory function of the right foot. IMAGING STUDIES: CTA confirms the presence of pseudoaneurysms with active bleeding coming from a branch of the distal SFA. There appears to be an intramuscular hematoma in the vastus intermedius. LABORATORY DATA: Labs include a WBC of 10, hematocrit of 25, platelet count is 158, INR is 1, PTT is 28. Chemistries unremarkable. IMPRESSION: * Pseudoaneurysms involving the branch of the right distal SFA, status post ORIF of distal right femur fracture. * History of GERD. * History of anxiety. RECOMMENDATIONS: Transfer for IR intervention with angiography, possible embolization versus covered stent placement. Serial hematocrits. Mark Good MD TID: [id number] RECEIPT: [id number] KB/PAR
[2024-09-12 01:39] LABS: MEAN PLATELET VOLUME 8.0 FL (7.4-10.4); RED CELL DISTRIBUTION WIDTH 19.7 % (11.5-14.5)
[2024-09-12 05:55] LABS: CREATININE 0.68 MG/DL (0.40-0.90); TOTAL CARBON DIOXIDE 26.7 MMOL/L (24-32); eCRCL 74 ML/MIN; eGFR 90 ML/MIN
[2024-09-12 05:58] LABS: MEAN PLATELET VOLUME 8.3 FL (7.4-10.4); RED CELL DISTRIBUTION WIDTH 19.2 % (11.5-14.5)
[2024-09-12 06:00] VITALS: BP 115/67; PULSE 95; RESP 18; TEMP 97.8; O2SAT 98
[2024-09-12 07:28] LABS: BANDS% (MANUAL) 1.0 % (0-10); EOSINOPHILS % (MANUAL) 2.0 % (0-6); LYMPHOCYTES % (MANUAL) 15.0 % (21-51); METAMYLEOCYTES% (MANUAL) 1.0 % (0-0); MONOCYTES % (MANUAL) 4.0 % (2-12); NEUTROPHILS % (MANUAL) 77.0 % (42-75); NUCLEATED RED BLOOD CELLS 1 /100WBC (0-0)
[2024-09-12 07:29] LABS: PLATELET ESTIMATE NORMAL
[2024-09-12 10:00] VITALS: BP 109/76; PULSE 94; RESP 15; TEMP 98.9; O2SAT 92
--- NOTE | 2024-09-12 13:55 | PROGRESS NOTE- Residence ---
Progress Note - Resident Providers to CC Resident Creating Document: ECHO QUIROS RES ~ Antibiotic Timeout Antibiotic Ordered?: No Subjective Patient seen and examined at the bedside. Today the patient was screaming in excruciating pain, despite the use of p.o. opioids, requiring Dilaudid p.r.n. She is tolerating regular diet. No new symptoms reported. Objective Vital Signs Date Time Temp Pulse Resp B/P (MAP) Pulse Ox O2 Delivery O2 Flow Rate FiO2 09/12/24 08:00 Room Air 0.0 09/12/24 07:37 95 09/12/24 06:00 97.8 18 115/67 (83 98 Result Diagram: 09/12/24 0503 09/12/24 0503 General: Awake and Alert, crying in pain. HEENT: Conjunctiva pale, Sclera clear, Mucus Membranes moist. Neck: Supple without masses and tenderness. Resp: Unlabored. Lungs clear to auscultation bilaterally. Heart: Regular Rate and rhythm, normal S1 and S2 without murmur, rub or gallop. Abdomen: Soft and non tender no organomegaly Extremities: No cyanosis,clubbing or edema. Right lower extremity with dressing and no external bleeding noted. There is also 1+ edema that have been present since the surgery. Pulses are strong and symmetric in both distal lower extremities, Skin: Warm and Dry. Coagulation Studies Laboratory Tests Test 09/09/24 10:25 Prothrombin Time 10.3 SECONDS (9.0-12.0) INR International Normalized Ratio 1.0 INR Activated Partial Thromboplast Time 28 SECONDS (22-32) Coagulation Comments Plan Plan Assessment This is a 54-year-old female with a history of right knee arthroplasty who came to the ER after a fall sustaining distal right femur fracture, Dr. Dugan was consulted, retrograde nailing with stabilization of major proximal and distal locking screws of right femur were done on 09/08/2024. Post procedure the patient has been requiring blood transfusion every other day and was found to have intramuscular hematoma and multiple pseudoaneurysms arising from the distal femoral branch. The patient needs to be transferred from a higher level of care. Plan Right comminuted displaced distal femur fracture s/p retrograde nailing with stabilization of major proximal and distal femur locking on 09/08/2024 History of right knee arthroplasty Fracture is secondary to mechanical fall Status post rodding with Dr. Davon Dugan orthopedic surgeon Pain management-Percocet q.6 p.r.n. Patient is able to tolerate diet well. Did not have a bowel movement yet, is able to past medical his and bowel sounds present, milk of Mag daily p.r.n. Physical therapy recommended post acute care. 09/12/2024 Ordered right lower extremity CT with contrast: Intramuscular hematoma and swelling with multiple pseudoaneurysms in the vastus intermedius muscle. They may be arising from a branch of the distal femoral artery. Catheter based angiography suggested for further evaluation. Dr. Good consulted and recommended to transfer the patient for IR intervention with angiography, possible embolization versus covered stent placement. Serial hematocrits. Case management was notified about the need to transfer the patient for a higher level of care and is work on it Lovenox discontinued temporarily until IR intervention Pain management with morphine 15 mg ER p.o. b.i.d. and Dilaudid 1 mg p.r.n. q.4h Patient was communicated about the CT findings and current recommendations Microcytic anemia 09/12/2024 Hemoglobin today 7.8, but it was 9.8 at admission, received 3 units of blood transfusion after surgery Patient has a history of gastric bypass in 2006 Iron studies showed low iron, normal TIBC, normal % saturation, normal ferritin Received 5 units of IV Venofer. Monitor daily Reactive leukocytosis Likely secondary to surgery. WBC count is mild elevated but stable Hypertension Blood Pressure is in the normal range Continued patient's home medication amlodipine 5 mg hypokalemia-resolved Potassium replacement protocol Code status: Full code DVT prophylaxis SQ Lovenox - on hold for now GI prophylaxis: Pantoprazole Diet: Regular diet Lines/tubes: Peripheral IV line Disposition: Patient requires transfer to a higher level of care. Case discussed with resident at bedside as well as media planner / buyer Date of Service: Sep 12, 2024 Billing Provider: REN NICHOLSON MD Common Visit Codes: [id number] INP/OBS CARE(HIGH) ECHO QUIROS, RES Sep 12, 2024 13:55 REN NICHOLSON MD Sep 13, 2024 18:52
[2024-09-12 18:00] VITALS: BP 92/56; PULSE 95; RESP 18; TEMP 97.8; O2SAT 97
[2024-09-12] MEDS: calcium carbonate 500mg chew tablet PO PRN (19:59)
[2024-09-12 20:00] VITALS: RESP 18; O2SAT 97
[2024-09-12 22:00] VITALS: BP 122/78; PULSE 98; RESP 16; TEMP 97.6; O2SAT 95
[2024-09-13 06:00] VITALS: BP 88/54; PULSE 86; RESP 18; TEMP 97.7; O2SAT 92
[2024-09-13 08:56] LABS: MEAN PLATELET VOLUME 8.3 FL (7.4-10.4); RED CELL DISTRIBUTION WIDTH 20.3 % (11.5-14.5)
[2024-09-13 09:10] LABS: CREATININE 0.57 MG/DL (0.40-0.90); TOTAL CARBON DIOXIDE 27.7 MMOL/L (24-32); eCRCL 88 ML/MIN; eGFR > 90 ML/MIN
[2024-09-13 10:00] VITALS: BP 112/63; PULSE 104; RESP 17; TEMP 100.1; O2SAT 98
--- NOTE | 2024-09-13 10:33 | PROGRESS NOTE- Residence ---
Progress Note - Resident Providers to CC Resident Creating Document: ECHO QUIROS RES ~ Antibiotic Timeout Antibiotic Ordered?: No Subjective Patient seen and examined at the bedside. Patient is still complaining of excruciating pain, despite the use of p.o. opioids and Dilaudid p.r.n. She is tolerating regular diet, last bowel movement was two days ago but she is passing gas. No other symptoms reported. Objective Vital Signs Date Time Temp Pulse Resp B/P (MAP) Pulse Ox O2 Delivery O2 Flow Rate FiO2 09/13/24 08:00 Room Air 0.0 09/13/24 07:09 89 09/13/24 06:00 97.7 18 88/54 (65) 92 Result Diagram: 09/13/24 0812 09/13/24 08 General: Awake and Alert, crying in pain. HEENT: Conjunctiva pale, Sclera clear, Mucus Membranes moist. Neck: Supple without masses and tenderness. Resp: Unlabored. Lungs clear to auscultation bilaterally. Heart: Regular Rate and rhythm, normal S1 and S2 without murmur, rub or gallop. Abdomen: Soft and non tender no organomegaly Extremities: No cyanosis,clubbing or edema. Right lower extremity with dressing and no external bleeding noted. There is also 1+ edema that have been present since the surgery. Pulses are strong and symmetric in both distal lower extremities, Skin: Warm and Dry. Coagulation Studies Laboratory Tests Test 09/09/24 10:25 Prothrombin Time 10.3 SECONDS (9.0-12.0) INR International Normalized Ratio 1.0 INR Activated Partial Thromboplast Time 28 SECONDS (22-32) Coagulation Comments Plan Plan Assessment This is a 54-year-old female with a history of right knee arthroplasty who came to the ER after a fall sustaining distal right femur fracture, Dr. Dugan was consulted, retrograde nailing with stabilization of major proximal and distal locking screws of right femur were done on 09/08/2024. Post procedure the patient has been requiring blood transfusion every other day and was found to have intramuscular hematoma and multiple pseudoaneurysms arising from the distal femoral branch. The patient needs to be transferred from a higher level of care. Plan Right comminuted displaced distal femur fracture s/p retrograde nailing with stabilization of major proximal and distal femur locking on 09/08/2024 History of right knee arthroplasty Fracture is secondary to mechanical fall Status post rodding with Dr. Davon Dugan orthopedic surgeon Pain management-Percocet q.6 p.r.n. Patient is able to tolerate diet well. Did not have a bowel movement yet, is able to past medical his and bowel sounds present, milk of Mag daily p.r.n. Physical therapy recommended post acute care. 09/12/2024 Ordered right lower extremity CT with contrast: Intramuscular hematoma and swelling with multiple pseudoaneurysms in the vastus intermedius muscle. They may be arising from a branch of the distal femoral artery. Catheter based angiography suggested for further evaluation. Dr. Good consulted and recommended to transfer the patient for IR intervention with angiography, possible embolization versus covered stent placement. Serial hematocrits. Case management was notified about the need to transfer the patient for a higher level of care and is work on it Lovenox discontinued temporarily until IR intervention Pain management with morphine 15 mg ER p.o. b.i.d. and Dilaudid 1 mg p.r.n. q.4h Patient was communicated about the CT findings and current recommendations 09/13/2024 Pain management with morphine 15 mg ER p.o. b.i.d., Percocet p.r.n. and Dilaudid 1 mg p.r.n. q.4h Case management working to transfer the patient for a higher level of care. Lovenox held until controlled bleeding Microcytic anemia 09/12/2024 Hemoglobin today 7.8, but it was 9.8 at admission, received 3 units of blood transfusion after surgery Patient has a history of gastric bypass in 2006 Iron studies showed low iron, normal TIBC, normal % saturation, normal ferritin Received 6 units of IV Venofer. Monitor daily 09/13/2024 Hemoglobin is 7.6 today. No significant drop since yesterday. Reactive leukocytosis Likely secondary to surgery. WBC count is mildly elevated but stable Hypertension Blood Pressure is in the normal range Continued patient's home medication amlodipine 5 mg hypokalemia-resolved Potassium replacement protocol Code status: Full code DVT prophylaxis SQ Lovenox - on hold for now GI prophylaxis: Pantoprazole Diet: Regular diet Lines/tubes: Peripheral IV line Disposition: Patient requires transfer to a higher level of care. Date of Service: Sep 13, 2024 Billing Provider: REN NICHOLSON MD Common Visit Codes: [id number] INP/OBS CARE(HIGH) ECHO QUIROS, RES Sep 13, 2024 10:33 REN NICHOLSON MD Sep 13, 2024 18:52
[2024-09-13 18:00] VITALS: BP 125/84; PULSE 106; RESP 18; TEMP 97.5; O2SAT 98
[2024-09-13 20:00] VITALS: RESP 18; O2SAT 96
--- NOTE | 2024-09-13 21:51 | DISCHARGE SUMMARY-Residence ---
Discharge Summary Providers to CC Resident Creating Document: DULCE PEREA RES ~ Discharge Summary Admission Diagnosis: Right distal femur/knee fracture periprosthetic Hospital Course DATE OF ADMISSION: 09/06/2024 DATE OF DISCHARGE: 09/13/2024 Hospital course same as mentioned discharge summary. Discharge Diagnosis\Comment: Right comminuted displaced distal femur fracture s/p retrograde nailing with stabilization of major proximal and distal femur locking on 09/08/2024 History of right knee arthroplasty Microcytic anemia Reactive leukocytosis Hypertension Hypokalemia Right lower extremity CT with contrast: Intramuscular hematoma and swelling with multiple pseudoaneurysms in the vastus intermedius muscle. Pseudoaneurysms involving the branch of the right distal SFA, status post ORIF of distal right femur fracture. Operations\Procedures: s/p retrograde nailing with stabilization of major proximal and distal femur locking on 09/08/2024 Consultants: Dr. Ritchie Maldonado Complications: None Condition on DC: Stable Discharge Summary: As per HPI: This is a 54-year-old female who has been sober for several months and has recently got in the has a couple of drinks yesterday with her friends at the [employer] and he ended up falling and landing on her right knee and sustained a comminuted distal right femur fracture - ED CLOTH WINDER Chidi Davis spoke with Dr. Dugan orthopedic surgeon who is anticipating taking the patient to the OR tomorrow. The patient is experiencing a significant amount of pain. Hospital course: Was found to have right comminuted displaced femur fracture. She had nailing with stabilization of major proximal and distal femur locking by Dr. Dugan on 09/08/2024. Postprocedure she developed anemia with drop in hemoglobin to as low as 5.7, was given 3 units blood transfusion. H and H today 7.[address] of the right lower extremity with contrast showed intramuscular hematoma and swelling with multiple pseudoaneurysms in the vastus intermedius muscle. Catheter based angiography suggested for further evaluation. Vascular surgeon Dr. Maldonado was consulted and recommended to transfer the patient for IR intervention with angiography possible embolization versus covered stent placement. H&H was continuously monitored and transfused as needed. She has a history of hypertension home medication amlodipine five was continued. She has a hypokalemic potassium was replaced per protocol, potassium today 3.6. She has been transferred to [place] for higher level of care requiring IR intervention. General: Awake and Alert, crying in pain. HEENT: Conjunctiva pale, Sclera clear, Mucus Membranes moist. Neck: Supple without masses and tenderness. Resp: Unlabored. Lungs clear to auscultation bilaterally. Heart: Regular Rate and rhythm, normal S1 and S2 without murmur, rub or gallop. Abdomen: Soft and non tender no organomegaly Extremities: Right lower extremity swelling, dressing intact. Good pulses in the dorsalis pedis with good motor and sensory function of the right foot. CT of the right lower extremity on 09/11/2024: CLINICAL INDICATION: swelling TECHNIQUE: CT of the right lower extremity was performed using 90 mL Omnipaque 300 intravenous contrast. Sagittal and coronal reformatted images are provided. COMPARISON: CT CT LOWER EXTREMITY on DOS: 09/06/24 CT Dose: CTDI volume is 17.1 mGy. Dose-length product is 719.3 mGy*cm FINDINGS: There is open reduction internal fixation of a severely comminuted distal femoral fracture with intramedullary nail and screws. There are several displaced fracture fragments. There is a total knee replacement which appears to be well aligned. There is narrowing of the joint space which may suggest wear of the polyethylene liner. There is significant streak artifact from the hardware which limits evaluation. Resurfaced patella shows lateral patellar tilt. There is high attenuating fluid centered within the vastus muscles consistent with intramuscular hematoma and swelling. Multilobular area of high attenuation in the vastus intermedius muscle measures 4.6 x 4.5 cm suggestive of multiple pseudoaneurysms. This may be arising from a branch of the distal femoral artery. Diffuse subcutaneous edema. IMPRESSION: 1. Status post open reduction internal fixation of comminuted distal femoral fracture with multiple displaced fracture fragments as described. 2. Intramuscular hematoma and swelling with multiple pseudoaneurysms in the vastus intermedius muscle. They may be arising from a branch of the distal femoral artery. Catheter based angiography suggested for further evaluation. Please note that compartment syndrome is a clinical diagnosis and should be excluded on clinical basis. 3. Status post knee replacement. Possible polyethylene liner wear. All CT scans at this medical facility are performed using dose modulation techniques as appropriate to a performed exam including the following: Automated exposure control was utilized; adjustment of the MA and/or KV according to pa tient size; and use of iterative reconstruction technique. *Problems/Diagnosis: (1) Femur fracture, right Status: Acute (2) Anemia Status: Acute Total Time Spent on D/C: > 30 Minutes Date of Service: Sep 13, 2024 Billing Provider: REN NICHOLSON MD Problem Qualifiers (1) Femur fracture, right: Encounter type: initial encounter Femur location: distal, unspecified portion Fracture type: closed Fracture morphology: other fracture Qualified Codes: S72.491A - Other fracture of lower end of right femur, initial encounter for closed fracture (2) Anemia: Anemia type: unspecified type Qualified Codes: D64.9 - Anemia, unspecified DULCE PEREA, RES Sep 13, 2024 21:49
[2024-09-13 22:00] VITALS: BP 131/75; PULSE 106; RESP 18; TEMP 97.7; O2SAT 96
[2024-09-14 00:57] VITALS: RESP 18
== END 2024-09-14 01:40 | disposition short-term general hospital (02) | DRG 481 ==
LOC: ER 10:42 → ED HOLD 14:34 → ORTHO 4S 16:41
PROVIDERS: ADMIT Family Medicine; ATTEND Family Medicine
PROC: 30233N1 Transfusion of Nonautologous Red Blood Cells into Peripheral Vein, Percutaneous Approach (ICD-10-PCS; 2024-09-07)
PROC: 0QHB06Z Insertion of Intramedullary Internal Fixation Device into Right Lower Femur, Open Approach (ICD-10-PCS; principal; 2024-09-07 08:21)
DX: S72.491A Other fracture of lower end of right femur, initial encounter for closed fracture (principal); D62 Acute posthemorrhagic anemia; M97.11XA Periprosthetic fracture around internal prosthetic right knee joint, initial encounter; Z59.00 Homelessness unspecified; F41.9 Anxiety disorder, unspecified; K21.9 Gastro-esophageal reflux disease without esophagitis; E87.6 Hypokalemia; D50.8 Other iron deficiency anemias; S80.11XA Contusion of right lower leg, initial encounter; X58.XXXA Exposure to other specified factors, initial encounter; I10 Essential (primary) hypertension; F10.10 Alcohol abuse, uncomplicated; K58.9 Irritable bowel syndrome, unspecified; D72.828 Other elevated white blood cell count; W18.39XA Other fall on same level, initial encounter; Y93.89 Activity, other specified; Y92.89 Other specified places as the place of occurrence of the external cause; Z88.8 Allergy status to other drugs, medicaments and biological substances; Z90.49 Acquired absence of other specified parts of digestive tract; Z98.84 Bariatric surgery status; Z87.891 Personal history of nicotine dependence; Y99.8 Other external cause status; Z82.49 Family history of ischemic heart disease and other diseases of the circulatory system; I72.4 Aneurysm of artery of lower extremity
CPT/HCPCS: 36415; 36430; 71045; 73552; 73564; 73700; 73701; 76000; 80048; 80053; 82728; 83540; 83550; 83735; 84484; 85007; 85008; 85025; 85027; 85610; 85730; 86704; 86705; 86885; 86900; 86901; 86920; 87081; 87340; 93005; 93922; 96361; 96374; 96376; 97161; 97530; 99285; A4618; A6253; A6258; A6449; A7000; C1713; C1758; G0378; J0690; J1100; J1171; J1650; J1756; J1885; J2250; J2270; J2405; J2704; J2795; J3010; J3373; J3490; J7030; J7040; J7050; J7120; P9016; Q0177; Q9967

== ENCOUNTER 2024-09-23 22:53 | Emergency (ER) | payer MEDICARE ==
[~2024-09-23] VITALS: Ht 157.5 cm; Wt 109.0 kg
[~2024-09-23 22:53] MED LIST changes: +AMLO2.5T2 PO
[2024-09-23 22:55] VITALS: BP 129/90; PULSE 88; RESP 16; TEMP 96.9; O2SAT 96
--- NOTE | 2024-09-23 23:06 | Physician Documentation ---
HPI ~ General Chief Complaint: See Chief Complaint Stated Complaint: LEG PAIN Time Seen by MD: 23:04 OK to notify your PCP?: Yes Primary Medical Doctor: WALESKA GONZALEZ Source: patient Mode of Arrival: POV Exam Limitations: no limitations History of Present Illness HPI Comments 54-year-old female presents with questions about what medication she should be taking. She was seen at [facility] for her right femur fracture and discharged to [facility] in [place]. She left from them against medical advice because they were not answering her call light quick enough. She was not discharged and did not receive any medications or any paperwork. She states she should be taking a blood thinner, does not know the name or the dose but wants to know if it is safe that she does take a dose tonight. She reports that she did not call her primary care doctor earlier today to request further information. Medication Reconciliation Allergies: Coded Allergies: ziprasidone HCl (Verified Allergy, Severe, LOCK JAW AND THROAT CLOSING, 09/23/24) ziprasidone mesylate (Verified Allergy, Severe, LOCK JAW AND THROAT CLOSING, 09/23/24) Scheduled Amlodipine* (Norvasc*), 5 MG PO DAILY, (Reported) Cyclobenzaprine* (Cyclobenzaprine*), 1 TAB PO HS Gabapentin (Neurontin), 1 CAP PO TID, (Reported) Omeprazole (Omeprazole), 1 CAP PO DAILY, (Reported) Scheduled PRN Acetaminophen (Tylenol Extra Strength), 1 TAB PO TID PRN PRN for pain or fever, (Reported) Hydroxyzine Pamoate (Hydroxyzine Pamoate), 1 CAP PO Q8H PRN for anxiety Ibuprofen (Ibuprofen), 1 TAB PO Q8H PRN for pain, (Reported) ONDANSETRON ODT 4mg tablet (Ondansetron Odt), 1 TAB PO Q6H PRN for nausea/vomiting Past Medical History Past Medical History: *GI/HEPATOBILIARY*, Bowel Obstruction, Inflammatory Bowel Dz, Hernia, UTI, Chronic Pain, Anxiety Past Surgical History: cholecystectomy, gastric bypass, orthopedic surgeries, other Other Past Surgical History: hernia repair Patient History: FH: diabetes mellitus FATHER MOTHER FH: hypertension FATHER MOTHER FH: ovarian cancer MOTHER sister Alcohol Use: Sober Drug Use: other Lives In: Homeless Occupation: unemployed Review of Systems All Other Systems at this time: Reviewed and Negative Physical Exam Physical Exam Vital Signs: RN Vital Signs have been reviewed: Yes, Temperature: 96.9, Source: Temporal, Heart Rate: 88, Respiratory Rate: 16, BP: 129/90, Pulse Oximetry: 96, Weight: 109.000 Oxygen Flow Rate: 0 Pulse Oximetry Reflects: adequate oxygenation Physical Exam General: Alert, no distress. HEENT: No injection, moist mucous membranes. Neck: Full range of motion. Respiratory: No respiratory distress, equal chest rise and fall. Chest: No accessory muscle use. Cardiovascular: Regular rate and rhythm. Gastrointestinal: Nondistended. Extremities: Normal range of motion, no deformity of left leg. Knee immobilizer in place to right leg. Neurologic: Oriented x4. Psychiatric: Normal mood and affect. Skin: Normal color, warm and dry. Progress Results/Orders Results/Orders Vital Signs 09/23/24 22:55 Temp 96.9 Pulse 88 Resp 16 B/P (MAP) 129/90 Pulse Ox 96 O2 Flow Rate 0 Medical Decision Making Additional info obtained from: old records Findings Attempted to locate the record from Romelia's recent visit to see if there was any information about her medications or blood thinners but it is not visible in the external med history. She was recently discharged from [facility] to a rehab center and was receiving medications there. She then left that facility AMA earlier today. Cruz, she had her daughter drive her here to find out what medication she was taking and if it is safe if she skips a dose. We discussed that typically with blood thinners it is unsafe to skip any doses. Since she does not know what medication she was taking or have any records, I can not start her on a random blood thinner medication at this time. We discussed that as she has already missed tonight's dose she needs to call the rehab facility 1st thing in the morning and obtain a medication list. She is not have any physical medical complaints at this time. Differential Dx:Considerations: Include: Adverse circumstances, Psychosocial, Medical services unavail., Medication non-compliance Departure Disposition: HOME / SELF CARE / HOMELESS Impression: Primary Impression: Medication refill Condition: Stable Referrals: NO PRIMARY CARE PROVIDER (PCP) Education Educated: Patient Educated regarding: diagnosis, treatment, prognosis, need for follow up Additional Comment Medical Screen Exam This patient recieved a medical screening examination. After reviewing the individual's medical complaints with presenting symptoms and performing an appropriate physical examination, it was determined that no immediate life- threatening emergency medical condition is present. This individual is also not a women having contractions. Signature Scribe Signature: . Attestation: Scribed for Chaparrita Sierra by Chaparrita Scanlon NP . 09/23/24 23:13 Parts of this note were created using [employer] voice recognition software program. While efforts were made to correct any mistakes made by this voice recognition software program, nonsensical phrases may remain in this note. In addition, there may be errors and syntax, grammar, content and spelling. CHAPARRITA SIERRAP Sep 23, 2024 23:06
== END 2024-09-23 23:27 | disposition home or self-care (01) ==
LOC: ER 22:54
DX: M79.604 Pain in right leg (principal); Z76.0 Encounter for issue of repeat prescription; Z87.440 Personal history of urinary (tract) infections; Z88.8 Allergy status to other drugs, medicaments and biological substances; Z90.49 Acquired absence of other specified parts of digestive tract; Z98.84 Bariatric surgery status; Z98.890 Other specified postprocedural states; Z59.00 Homelessness unspecified
CPT/HCPCS: 99281; 99284

== ENCOUNTER 2024-09-26 15:31 | Emergency (ER) | payer MEDICARE ==
[~2024-09-26] VITALS: Ht 157.5 cm; Wt 99.0 kg
--- NOTE | 2024-09-26 19:43 | Physician Documentation ---
History of Present Illness ~ Chief Complaint: Leg Pain Stated Complaint: FEMUR FRACTURE RECHECK Time Seen by MD: 18:18 OK to notify your PCP?: Yes Primary Medical Doctor: WALESKA GONZALEZ Source: patient, RN/, RN notes reviewed, old records Mode of Arrival: POV, Dropped Off, Wheelchair Exam Limitations: no limitations HPI This patient comes in for right femur fracture that was originally repaired here by Dr. Dugan. The patient was transferred to [facility] for revascularization. At [facility] she received angioplasty and it appears as if she received some stents as well. The patient's discharge summary shows acetaminophen hydrocodone ibuprofen omeprazole but no anticoagulation. The patient then went to [facility] where she left AMA but does not know her medication list. Patient is requesting pain medications after seeing her primary care physician who evaluated to her and then suggested she comes to the ER. Patient states she has aching pains does not know she is on anticoagulation has no follow up. Review of the medical record from [facility] and the [facility] where she gets her medications has no list of anticoagulation. Review of the medical records from [facility] shows that the patient had a femoral artery stent deployment as well as angioplasty. Tetanus witin 5 years: Yes Medication Reconciliation Allergies: Coded Allergies: ziprasidone HCl (Verified Allergy, Severe, LOCK JAW AND THROAT CLOSING, 09/26/24) ziprasidone mesylate (Verified Allergy, Severe, LOCK JAW AND THROAT CLOSING, 09/26/24) Scheduled Amlodipine* (Norvasc*), 5 MG PO DAILY, (Reported) Clopidogrel Bisulfate (Plavix), 1 TAB PO DAILY Cyclobenzaprine* (Cyclobenzaprine*), 1 TAB PO HS Gabapentin (Neurontin), 1 CAP PO TID, (Reported) Omeprazole (Omeprazole), 1 CAP PO DAILY, (Reported) Scheduled PRN Acetaminophen (Tylenol Extra Strength), 1 TAB PO TID PRN PRN for pain or fever, (Reported) Hydroxyzine Pamoate (Hydroxyzine Pamoate), 1 CAP PO Q8H PRN for anxiety Ibuprofen (Ibuprofen), 1 TAB PO Q8H PRN for pain, (Reported) ONDANSETRON ODT 4mg tablet (Ondansetron Odt), 1 TAB PO Q6H PRN for nausea/ vomiting Past Medical History Past Medical History: *GI/HEPATOBILIARY*, Bowel Obstruction, Inflammatory Bowel Dz, Hernia, UTI, Chronic Pain, Anxiety Past Surgical History: cholecystectomy, gastric bypass, orthopedic surgeries, other Other Past Surgical History: hernia repair Patient History: FH: diabetes mellitus FATHER MOTHER FH: hypertension FATHER MOTHER FH: ovarian cancer MOTHER sister Alcohol Use: Sober Drug Use: other Lives In: Homeless Occupation: unemployed Review of Systems All Other Systems at this time: Reviewed and Negative ROS As stated above in the HPI, otherwise all systems are reviewed and negative. Physical Exam Vital Signs: RN Vital Signs have been reviewed: Yes, Temperature: 97.3, Source: Temporal, Heart Rate: 68, Respiratory Rate: 18, BP: 145/91, Pulse Oximetry: 99, Weight: 99.000 Oxygen Flow Rate: 0 Physical Exam Physical Exam General: Alert, no distress. HEENT: No injection, moist mucous membranes. Neck: Full range of motion. Respiratory: No respiratory distress, equal chest rise and fall. Chest: No accessory muscle use. Cardiovascular: Regular rate and rhythm. Gastrointestinal: Nondistended. Extremities: Normal range of motion, no deformity of left leg. Healing right knee wound. Postop Neurologic: Oriented x4. Psychiatric: Normal mood and affect. Skin: Normal color, warm and dry. Progress Progress Note 2204: The case was discussed with vascular surgery regarding the patient who recommended plavix for six months in addition to aspirin. Results/Orders Results/Orders Medications Received in ER Medications (Trade) Dose Ordered Sig/Jian Route PRN Reason Start Time Stop Time Status Last Admin Dose Admin (aspirin 325mg tablet) 1 tab ONCE ONCE PO 09/26/24 20:45 09/26/24 20:53 DC 09/26/24 21:33 1 TAB ([place] 10/325mg tab) 1 tab ONCE ONCE PO 09/26/24 20:45 09/26/24 20:46 DC 09/26/24 21:34 1 TAB (Plavix tablet) 300 mg ONCE ONCE PO 09/26/24 21:10 09/26/24 21:11 DC 09/26/24 21:34 300 MG Vital Signs 09/26/24 09/26/24 09/26/24 09/26/24 15:34 17:50 17:50 18:41 Temp 97.3 97.3 Pulse 74 68 Resp 18 18 18 18 B/P (MAP) 152/102 145/91 (109) Pulse Ox 97 99 O2 Flow Rate 0 09/26/24 09/26/24 09/26/24 19:39 21:12 21:34 Pulse 66 88 Resp 16 20 16 B/P (MAP) 144/104 (117) 145/93 (110) Pulse Ox 97 6 O2 Flow Rate 0 0 Departure Time of Disposition: 22:03 Disposition: 01 HOME / SELF CARE / HOMELESS Impression: Primary Impression: Pain in right femur Condition: Stable Additional Instructions: Follow up with primary care for treatment of leg pain. Referrals: NO PRIMARY CARE PROVIDER (PCP) Prescriptions Clopidogrel Bisulfate (Plavix) 75 Mg Tablet 1 TAB PO DAILY for 30 Days, #30 TAB 0 Refills Prov: JOSHUA WILKES MD 09/26/24 Signature Scribe Signature: Scribed for Joshua Wilkes MD by Peng Lomeli . 09/26/24 22:05 (progress and departure) Attestation: The note accurately reflects work and decisions made by me.Joshua Wilkes MD 09/26/24 19:44 JOSHUA WILKES MD Sep 26, 2024 19:43 PENG HOUGH Sep 26, 2024 22:05
[2024-09-26] MEDS ORDERED: CLOP-32 PO (21:27)
[2024-09-26] MEDS: HYDROcodone/acetaminophen 10/325mg tab PO ONE (21:34)
[2024-09-26] MEDS: clopidogrel 300mg tablet PO ONE (21:34)
[2024-09-26 22:23] VITALS: BP 129/78; PULSE 88; RESP 18; TEMP 97.5; O2SAT 98
== END 2024-09-26 22:27 | disposition home or self-care (01) ==
LOC: ER 15:31
DX: M79.604 Pain in right leg (principal); F41.9 Anxiety disorder, unspecified; Z90.49 Acquired absence of other specified parts of digestive tract; Z88.8 Allergy status to other drugs, medicaments and biological substances; Z98.890 Other specified postprocedural states; Z79.899 Other long term (current) drug therapy; Z56.0 Unemployment, unspecified; Z59.00 Homelessness unspecified
CPT/HCPCS: 99285

== ENCOUNTER 2024-10-06 16:06 | Emergency (ER) | payer MEDICARE ==
[~2024-10-06] VITALS: Ht 157.5 cm; Wt 99.0 kg
[~2024-10-06 16:06] MED LIST changes: +CLOP-32 PO; -IBUP-1985 PO; +IBUP600T52 PO
--- NOTE | 2024-10-06 16:20 | ELECTROCARDIOGRAPH REPORT ---
[facility] Test Date: 2024-10-06 Test Time: 16:13:11 Pat Name: BAILEE JUNE Department: EMERGENCY ROOM Patient ID: [facility]-[id number] Room: Gender: F Physical Therapy Professor: MARIANO : 1970 Requested By: PHILIP MANZO Order Number: [id number] Reading MD: Dr. Joshua Wilkes Measurements Intervals [place] Rate: 75 P: 40 AK: 187 QRS: 23 QRSD: 98 T: 42 QT: 390 QTc: 436 Interpretive Statements Sinus rhythm Inferior infarct, old Electronically Signed On 10-07-2024 6:12:[address] Joshua Wilkes Please click the below link to view image of tracing.
--- NOTE | 2024-10-06 17:01 | RADIOLOGY REPORT ---
CHEST RADIOGRAPH Indication: SOB Technique: Single frontal view of the chest was obtained COMPARISON: DI CHEST,SINGLE VIEW on DOS: 09/06/24, DI CHEST,SINGLE VIEW on DOS: 03/20/23, DI CHEST,SING LE VIEW on DOS: 03/09/23, DI CHEST,SINGLE VIEW on DOS: 02/01/23 FINDINGS: Lines and Tubes: None Lungs: Clear Pleura: No effusion. No pneumothorax. Cardiomediastinal contours: Unremarkable Bones: Unremarkable IMPRESSION: 1. No acute disease.
--- NOTE | 2024-10-06 18:21 | Physician Documentation ---
History of Present Illness ~ Chief Complaint: Anxiety Stated Complaint: ANXIETY/DIFFICULTY BREATHING Time Seen by MD: 16:11 Primary Medical Doctor: WALESKA GONZALEZ Source: patient Mode of Arrival: EMS Exam Limitations: no limitations HPI Chief Complaint: Shortness a breath, anxiety Caveat: None Independent Historians: Paramedics History of Present Illness: Review of systems: All systems were reviewed and are negative except for what is indicated in the history of present illness. Past Medical History: Femur fracture, pulmonary embolus status post surgery Past Surgical History: Social History: Medications: Reviewed as documented Nursing Notes Allergies: Reviewed as documented in Nursing Notes Medication Reconciliation Allergies: Coded Allergies: ziprasidone HCl (Verified Allergy, Severe, LOCK JAW AND THROAT CLOSING, 09/26/24) ziprasidone mesylate (Verified Allergy, Severe, LOCK JAW AND THROAT CLOSING, 09/26/24) Scheduled Amlodipine* (Norvasc*), 5 MG PO DAILY, (Reported) Clopidogrel Bisulfate (Plavix), 1 TAB PO DAILY Cyclobenzaprine* (Cyclobenzaprine*), 1 TAB PO HS Gabapentin (Neurontin), 1 CAP PO TID, (Reported) Omeprazole (Omeprazole), 1 CAP PO DAILY, (Reported) Scheduled PRN Acetaminophen (Tylenol Extra Strength), 1 TAB PO TID PRN PRN for pain or fever, (Reported) Hydroxyzine Pamoate (Hydroxyzine Pamoate), 1 CAP PO Q8H PRN for anxiety Ibuprofen (Ibuprofen), 1 TAB PO Q8H PRN for pain, (Reported) ONDANSETRON ODT 4mg tablet (Ondansetron Odt), 1 TAB PO Q6H PRN for nausea/vomiting Past Medical History Past Medical History: *GI/HEPATOBILIARY*, Bowel Obstruction, Inflammatory Bowel Dz, Hernia, UTI, Chronic Pain, Anxiety Past Surgical History: cholecystectomy, gastric bypass, orthopedic surgeries, other Other Past Surgical History: hernia repair Patient History: FH: diabetes mellitus FATHER MOTHER FH: hypertension FATHER MOTHER FH: ovarian cancer MOTHER sister Alcohol Use: Sober Drug Use: other Lives In: Homeless Occupation: unemployed Review of Systems All Other Systems at this time: Reviewed and Negative ROS Patient denies any other acute symptoms other than above. All other systems are negative Physical Exam Vital Signs: RN Vital Signs have been reviewed: Yes, Temperature: 97.5, Source: Temporal, Heart Rate: 84, Respiratory Rate: 18, BP: 146/100, Pulse Oximetry: 96, Weight: 99.000 Oxygen Flow Rate: 0 Pulse Oximetry Reflects: adequate oxygenation Physical Exam General Appearance: No distress, chronically ill-appearing, morbidly obese HEENT: Normal OP, moist oral mucosa, PERRL, EOMI Neck: supple, normal ROM, trachea midline Pulmonary: No respiratory distress, CTA, BS equal Cardiac: RRR, no murmur, rub or gallop, GI: nondistended, soft, nontender, normal bowel sounds, no guarding, no rebound Extremities: normal ROM, no swelling, non-tender Skin: intact, dry, warm, no rashes Neuro: AAOx3, speech is clear, no focal motor weakness Psych: normal affect, good eye contact, no apparent hallucination, normal speech Progress Results/Orders Results/Orders Orders - PHILIP MANZO MD Chest,Single View (10/06/24 16:12) Completed Orders - PHILIP MANZO MD Chest,Single View (10/06/24 16:12) Stat Ekg (10/06/24 16:16) Vital Signs 10/06/24 10/06/24 10/06/24 16:13 17:31 17:37 Temp 97.5 Pulse 81 84 Resp 17 18 18 B/P (MAP) 140/101 146/100 (115) Pulse Ox 97 96 O2 Flow Rate 0 0 Medical Decision Making Findings Differential diagnosis includes but is not limited to: Pulmonary embolus, acute asthma exacerbation, COPD exacerbation, CHF, pleural effusion, pneumothorax, anxiety, panic attack EKG independent interpretation: Performed at 4:13 p.m.. Normal sinus rhythm, heart rate 75, normal axis, normal ST segments Chest x-ray, single view, indication: Shortness a breath Independent interpretation: LUNGS ARE CLEAR, NORMAL MEDIASTINUM, NORMAL CARDIAC SILHOUETTE. NO ACUTE CARDIOPULMONARY PROCESS. Emergency department course/medical decision-making: Departure Time of Disposition: 18:16 Disposition: 01 HOME / SELF CARE / HOMELESS Impression: Primary Impression: Panic attack Additional Impression: Dyspnea Qualified Codes: R06.00 - Dyspnea, unspecified Discharge Instructions: Panic Attack, Shortness of Breath, Adult, [id number] Additional Instructions: RETURN TO THE ER IF YOU HAVE ANY RECURRENT PERSISTENT DIFFICULTY BREATHING. Education Educated: Patient Educated regarding: diagnosis, treatment, need for follow up Signature Scribe Signature: No parishiberica Attestation: No scribe PHILIP MANZO MD Oct 06, 2024 18:21
[2024-10-06 18:39] VITALS: BP 155/100; PULSE 80; RESP 16; TEMP 98.1; O2SAT 99
== END 2024-10-06 18:42 | disposition home or self-care (01) ==
LOC: ER 16:06
DX: F41.0 Panic disorder [episodic paroxysmal anxiety] (principal); R06.02 Shortness of breath; Z86.711 Personal history of pulmonary embolism; Z98.890 Other specified postprocedural states; Z90.49 Acquired absence of other specified parts of digestive tract; Z88.8 Allergy status to other drugs, medicaments and biological substances; Z79.899 Other long term (current) drug therapy; Z56.0 Unemployment, unspecified; Z59.00 Homelessness unspecified
CPT/HCPCS: 71045; 93005; 99284